=== PATIENT | female | born 1960 | race American Indian/Alaskan Native ===

== ENCOUNTER 2017-11-08 14:10 | Inpatient (IN) | payer MEDICAID ==
[2017-11-08 12:50] VITALS: BMI 23.6
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
[2017-11-08 15:46] LABS: BASO # 0.1 K/uL (0.0-0.2); BASO % 1.7 % (0.0-2.0); EOS # 0.2 K/uL (0.0-0.7); EOS % 4.1 % (0.0-4.0); HEMOGLOBIN 9.9 g/dL (11.0-16.0); LYMPH # 1.2 K/uL (1.0-4.3); LYMPH % 20.3 % (20.0-40.0); MEAN CELL VOLUME 93.8 fL (81.0-99.0); MEAN CORPUSCULAR HEMOGLOBIN 30.9 pg (27.0-31.0); MEAN PLATELET VOLUME 9.4 fL (7.2-11.7); MONO # 0.4 K/uL (0.0-0.8); MONO % 7.2 % (0.0-10.0); NEUT # 3.8 K/uL (1.8-7.0); NEUT % 66.7 % (50.0-75.0); NRBC % 0.1 % (0.0-2.0); RBC 3.2 Mil/uL (3.80-5.20); RED CELL DISTRIBUTION WIDTH 15.7 % (11.5-14.5); WHITE BLOOD COUNT 5.7 K/uL (4.8-10.8)
[2017-11-08 16:07] LABS: TOTAL IRON BINDING CAPACITY 183 ug/dL (250-450)
[2017-11-08 16:25] LABS: ALB/GLOB RATIO 1.2 (1.0-2.1); CALCIUM 8.7 mg/dl (8.6-10.4)
[2017-11-08] MEDS ORDERED: (Novolog) Insulin Aspart, Recombinant 100 u/ml 10 ml vial SC SCH ×2 (16:30→18:36)
[2017-11-08 19:28] LABS: BASO % 0.6 % (0.0-2.0); EOS # 0.1 K/uL (0.0-0.7); EOS % 2.1 % (0.0-4.0); HEMOGLOBIN 10.5 g/dL (11.0-16.0); LYMPH # 0.7 K/uL (1.0-4.3); MEAN CELL VOLUME 93.3 fL (81.0-99.0); MEAN CORPUSCULAR HEMOGLOBIN 31.4 pg (27.0-31.0); MEAN CORPUSCULAR HGB CONC 33.6 g/dL (33.0-37.0); MEAN PLATELET VOLUME 9.4 fL (7.2-11.7); MONO # 0.3 K/uL (0.0-0.8); MONO % 4.7 % (0.0-10.0); NEUT # 5.6 K/uL (1.8-7.0); NEUT % 82.6 % (50.0-75.0); RBC 3.34 Mil/uL (3.80-5.20); RED CELL DISTRIBUTION WIDTH 15.9 % (11.5-14.5); WHITE BLOOD COUNT 6.7 K/uL (4.8-10.8)
[2017-11-08 19:46] LABS: ALB/GLOB RATIO 1.1 (1.0-2.1); ALBUMIN 3.8 g/dL (3.5-5.0); CALCIUM 8.7 mg/dl (8.6-10.4)
[2017-11-08] MEDS: (Novolog) Insulin Aspart, Recombinant 100 u/ml 10 ml vial SC SCH (21:41)
[2017-11-08] MEDS ORDERED: (Lantus) Insulin Glargine, Recombinant SC SCH (22:00)
[2017-11-08] MEDS ORDERED: Insulin Detemir 100 units/ml Vial (Levemir) SC SCH (22:00)
[2017-11-08] MEDS ORDERED: Rosuvastatin Calcium 2.5 mg Tab PO SCH (22:00)
[2017-11-08 22:43] LABS: IRON 55 ug/dL (37-170)
--- NOTE | 2017-11-09 05:38 | CON ---
ENDOCRINOLOGY CONSULTATION DATE: LOCATION: ICU room 16. HISTORY OF PRESENT ILLNESS: This is a 57-year-old female with known history of type 2 insulin-requiring diabetes, presenting here from [facility] for initiation of emergency hemodialysis because of supervening marked hyperkalemia noted at the [facility] Emergency Room. Moreover, she also has been referred now for diabetic evaluation because of marked hyperglycemic acceleration and glucose levels were over 900 at [facility] also. She also had underlying metabolic acidosis and hyperosmolar state as noted. PAST MEDICAL HISTORY: History of type 2 insulin-requiring diabetes, recently changed to a different regimen at home using regular insulin, taken as 5 units t.i.d. with meals and at bedtime, but given only p.r.n. with no recent home glucose monitoring levels available at this time. She is also using alogliptin, taken as 6.25 mg once daily as given. History of diabetic retinopathy, polyneuropathy and nephropathy with end-stage renal disease, on dialysis dependence. History of coronary artery disease, peripheral arterial disease and vasculopathy. FAMILY HISTORY: Positive for diabetes and hypertension. SOCIAL HISTORY: The patient admits to nicotine dependence and chews half a pack a day for many years now. She has a supportive family, otherwise. REVIEW OF SYSTEMS: Admits to generalized body weakness with episodic bouts of dizziness and lightheadedness with visual blurring and bifrontal headaches. Also admits to disruptive sleep patterns and recent hypersomnolence and lethargy as noted. No chest pains, palpitations or PNDs but admits to episodic shortness of breath, especially on exertion. Her oral intake has been variable with marked nausea, dyspepsia, and upper abdominal pain with supervening loose watery diarrhea as noted. Also admits to lower extremity painful paresthesias. PHYSICAL EXAMINATION: GENERAL: This is an average built female, in no apparent distress. VITAL SIGNS: Blood pressure of 150/90, pulse of 100 beats per minute and regular, temperature 98, respirations 20. Height is 5 feet 9 inches. Weight is 174 pounds. HEENT: Head normocephalic. Eyes anicteric with pink conjunctivae. Funduscopy is not possible at this time. Ears, nose and throat, otherwise normal. NECK: Supple. Thyroid gland is normal in size. No carotid bruits or cervical adenopathy. CARDIOPULMONARY: Some adynamic precordium. S1 and S2, rapid and regular. LUNGS: Showed scattered rhonchi. ABDOMEN: Flat and soft with positive bowel sounds. EXTREMITIES: No peripheral edema. Pulses are +2 bilaterally. LABORATORY DATA: Chemistries done initially here in the emergency room showed a BUN of 58, sodium 138, potassium 5.1, chloride 99, CO2 of 26, glucose 136, creatinine 8.9. Subsequent glucose levels raised from 167 to 215 mg/dL. ASSESSMENT: This is a 57-year-old female with uncontrolled and decompensated type 2 insulin-requiring diabetes, presenting to the [facility] with hyperosmolar hyperglycemic state, marked hyperglycemic acceleration with underlying ketosis and worsening azotemia with advanced renal failure and marked hyperkalemia as noted thereof. She has been transferred here to [facility] for emergency hemodialysis as noted thereof. She has also diabetic microvascular complications of retinopathy, polyneuropathy and nephropathy with end-stage renal disease and dialysis dependence. Moreover, she also has diabetic macrovascular complications of coronary artery disease, peripheral arterial disease, and vasculopathy. PLAN OF MANAGEMENT: As discussed with the patient and staff because of the marked anorexia and dyspepsia with recent loose watery diarrhea, we will modify her coverage scale to obviate hypoglycemia, and detailed orders have been given. We will change her basal insulin to Lantus which is longer acting and given once daily, and we will start with a low dose of Lantus given as 6 units at bedtime daily to start tonight and we will titrate incrementally if her oral intake improves accordingly. We will hold off prandial insulin regimen for now and if her appetite improves, then we will start her on a very low dose of Novolin given t.i.d. before meals as indicated. We have to avoid giving Novolin at bedtime to obviate early childhood associate hypoglycemia. This rapid active insulin analog is only given at meal time to cover the postprandial glycemic excursion as expected. We will obtain a hemoglobin A1c to confirm her prior glycemic control and baseline thyroid function studies, and a lipid panel will be ordered. We will also obtain a parathyroid hormone intact level to screen for secondary hyperparathyroidism. We will obtain serial chemistries and supplement accordingly as needed. We will follow with you. Ann Castro MD
[2017-11-09 07:01] LABS: ALB/GLOB RATIO 1.3 (1.0-2.1); ALBUMIN 4.2 g/dL (3.5-5.0); ALT/SGPT 14 U/L (9-52); AST/SGOT 18 U/L (14-36); BLOOD UREA NITROGEN 33 mg/dL (7-17); CALCIUM 8.5 mg/dl (8.6-10.4); GFR AFRICAN-AMERICAN 8; GFR NON-AFRICAN AMERICAN 6; HDL CHOLESTEROL 76 mg/dL (30-70)
[2017-11-09 07:12] LABS: LDL CHOLESTEROL < 30 mg/dL (0-129)
[2017-11-09] MEDS: (Novolog) Insulin Aspart, Recombinant 100 u/ml 10 ml vial SC SCH ×5 (08:28→16:44)
[2017-11-09] MEDS ORDERED: Sod Polystyrene Sulf 15 gm/60 ml Susp PO ONE (09:38)
[2017-11-09] MEDS ORDERED: Vancomycin 1 gm/NS 200 ml 1 GM/200 ML BAG IVPB STA (09:57)
[2017-11-09] MEDS ORDERED: Pantoprazole 40 mg EC Tab PO SCH (10:00)
[2017-11-09 14:59] VITALS: RESP 16; O2SAT 98
--- NOTE | 2017-11-09 16:51 | PN ---
DATE: 11/09/2017 LOCATION: ICU Room 16. SUBJECTIVE: This is a 57-year-old female with recent uncontrolled type 2 insulin requiring diabetes, presenting here with marked hyperglycemic accelerations and metabolic acidosis and has been transferred here from [facility] for initiation of hemodialysis as noted thereof. Her oral intake remains quite variable, but is improving as noted today by the nursing staff. Supervening hyperglycemic accelerations have developed overnight with latest glucose values today ranging from 215 to 360 mg per deciliter. Her hemoglobin A1c is 10.7% which is quite elevated indicative of suboptimal metabolic control of her diabetic condition even prior to this admission. Her latest chemistries today showed a BUN of 33, sodium 134, potassium 5.7, chloride 93, CO2 of 23, glucose 360, and creatinine 6.6. ASSESSMENT: This is a 57-year-old female with uncontrolled and decompensated type 2 insulin requiring diabetes with recent hyperosmolar state and dehydration from concomitant progressive renal insufficiency and marked azotemia as noted thereof. She also has diabetic microvascular complications of retinopathy, polyneuropathy, and nephropathy with end-stage renal disease, on dialysis dependence. Moreover, she has diabetic microvascular complications of coronary artery disease and peripheral arterial disease with vasculopathy. PLAN OF MANAGEMENT: We will modify once again now her basal and bolus insulin regimen and actually will be adding a prandial insulin as her oral intake has improved overnight, and we will give NovoLog given as 6 units subcu t.i.d. before meals to start at lunch time today as ordered. We will modify the coverage scale to obviate hypoglycemia and detailed orders have been given. We will also increase and titrate her basal insulin with Lantus to be given as 12 units subcu at bedtime daily to start tonight. We will titrate incrementally her insulin regimen to optimize metabolic control. We will follow up. Ann Castro MD
[2017-11-09 18:25] VITALS: BP 140/59; PULSE 82; TEMP 97.8
[2017-11-09] MEDS ORDERED: (Lantus) Insulin Glargine, Recombinant SC SCH (22:00)
--- NOTE | 2017-11-09 22:35 | HP ---
CHIEF COMPLAINT: Urinary problems. HISTORY OF PRESENT ILLNESS: Ms. Franco Rosa is a 57-year-old female with past medical history of end-stage renal disease, on hemodialysis, anemia, secondary hypothyroidism, hypertension, diabetic retinopathy, diabetic nephropathy, diabetic neuropathy, hypertension, and GERD. She was initially presented to [facility] emergency room with diarrhea, abdominal pain, too much urination, thirsty. She stated that she is compliant with her insulin, and she had been electively compliant with her dialysis. She was found to have a sugar of 900 with severe hyperkalemia. She was admitted to the [facility], but from [place], she is supposed to go for dialysis in [facility], then we transferred the patient from [place] to [facility] emergency room. Discussion done with Dr. Kaba, hospitalist. She gave me for this patient. The patient was seen in her room, that moment, she was comfortable. No fever. No chills. Her abdominal pain got better. No nausea, vomiting, or diarrhea. PAST MEDICAL HISTORY: As above, end-stage renal disease, on hemodialysis, TTS, anemia secondary hypothyroidism, hypertension, diabetic retinopathy, diabetic neuropathy, diabetic nephropathy, GERD, dyspepsia, have AV fistula, AV stent. ALLERGIES: THE PATIENT IS NOT ALLERGIC WITH ANY MEDICATIONS. FAMILY HISTORY: Breast CA, HIV positive, diabetes mellitus, stroke, and seizures. SOCIAL HISTORY: Smoking habits: Smoking, yes. Denies ethanol and IVDA. REVIEW OF SYSTEMS: Full details of system is negative except as above in H and P. PHYSICAL EXAMINATION: VITAL SIGNS: Temperature 98.4, pulse 83, blood pressure 153/58, respiratory rate 16, oxygen saturation 94%. HEENT: Normocephalic and atraumatic. Eyes, PERRLA. Extraocular movements are intact. Conjunctivae clear. Nose patent. Mucous membranes are moist. NECK: Supple. No carotid bruits, JVD, or thyromegaly. CHEST: Bilaterally symmetrical. HEART: S1, S2 positive. LUNGS: Clear to auscultation. ABDOMEN: Soft. Bowel sounds present. No organomegaly. EXTREMITIES: No edema. No cyanosis. NEUROLOGIC: The patient is awake, alert. Moving all four extremities without focal deficits. LABORATORY DATA: White blood cell 6.7, hemoglobin 10.5, hematocrit 31.1, platelets 153. Sodium 134, potassium 3.2, chloride 92, BUN 23, creatinine 3.9, glucose 215, phosphorus 2.4, alkaline phosphatase 145. ASSESSMENT AND PLAN: Ms. Franco Rosa is a 57-year-old lady with anemia who was admitted for hyperkalemia but now has hypokalemia, hypochloremia, renal insufficiency, uncontrolled diabetes mellitus, vitamin D deficiency, seen by Dr. 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 The patient is in the unit. We will continue amlodipine, aspirin, heparin, insulin, metoprolol. Seen by sales representative uniforms, Dr. Alexander, thermometer tester, Dr. Lugo, and endocrinology, Dr. Ann Castro. Discussion was done with the patient and the patient's daughter and the patient's admitting nurse. July Dunne MD
== END 2017-11-09 18:15 | disposition left against medical advice (07) | DRG 566 ==
LOC: C.9I 14:10
PROVIDERS: ADMIT Internal Medicine; ATTEND Internal Medicine
PROC: 5A1D70Z Performance of Urinary Filtration, Intermittent, Less than 6 Hours Per Day (ICD-10-PCS; principal; 2017-11-08)
DX: E87.5 Hyperkalemia (principal); E11.00 Type 2 diabetes mellitus with hyperosmolarity without nonketotic hyperglycemic-hyperosmolar coma (NKHHC); I12.0 Hypertensive chronic kidney disease with stage 5 chronic kidney disease or end stage renal disease; E11.51 Type 2 diabetes mellitus with diabetic peripheral angiopathy without gangrene; N18.6 End stage renal disease; E11.42 Type 2 diabetes mellitus with diabetic polyneuropathy; E11.21 Type 2 diabetes mellitus with diabetic nephropathy; E11.22 Type 2 diabetes mellitus with diabetic chronic kidney disease; E11.319 Type 2 diabetes mellitus with unspecified diabetic retinopathy without macular edema; E87.2 Acidosis; E87.6 Hypokalemia; E87.8 Other disorders of electrolyte and fluid balance, not elsewhere classified; E55.9 Vitamin D deficiency, unspecified; F17.200 Nicotine dependence, unspecified, uncomplicated; H40.9 Unspecified glaucoma; I25.10 Atherosclerotic heart disease of native coronary artery without angina pectoris; K21.9 Gastro-esophageal reflux disease without esophagitis; D64.9 Anemia, unspecified; N25.81 Secondary hyperparathyroidism of renal origin; Z79.4 Long term (current) use of insulin; Z87.440 Personal history of urinary (tract) infections; Z99.2 Dependence on renal dialysis

== ENCOUNTER 2017-12-13 12:11 | Inpatient (IN) | payer MEDICAID ==
[2017-12-13 12:13] VITALS: BMI 25.1
--- NOTE | 2017-12-13 12:36 | C.PDOC ---
Chief Complaint (Nursing): Medical Clearance Past Medical History Vital Signs: Last Vital Signs Temp Pulse 80 12/13/17 12:27 Resp 20 12/13/17 12:27 BP 106/37 L 12/13/17 12:27 Pulse Ox 98 12/13/17 12:27 - Medical History PMH: Anemia (blood transfusion), Anxiety, Depression, Diabetes, Fractures (left ankle fx and surgery), HTN, Hypercholesterolemia, Hyperlipidemia, Pancreatitis, Peripheral Edema (Left arm/Lhand/ble/ none at present time), End Stage Renal Disease, Chronic Kidney Disease Denies: HIV Surgical History: Denies: Appendectomy (Denies.), Pacemaker - [facility] Procedures (11/08/17) APPLICATION OF SPLINT (07/26/13) CL FX REDUC-TIBIA/FIBULA (11/16/14) FLUOROSCOPY OF RIGHT JUGULAR VEINS, GUIDANCE (05/03/15) INJECT/INFUSE NEC (03/21/15) INSERT INFUSION DEV IN R INT JUGULAR VEIN, PERC (05/03/15) OP RED-INT FIX TIB/FIBUL (11/16/14) PACKED CELL TRANSFUSION (11/16/14) PERFORMANCE OF URINARY FILTRATION, MULTIPLE (10/04/16) PERFORMANCE OF URINARY FILTRATION, SINGLE (10/26/16) REMOVAL OF INFUSION DEVICE FROM UPPER VEIN, PERC APPROACH (05/03/15) REPAIR ABDOMINAL WALL, OPEN APPROACH (04/16/16) TRANSFUSE NONAUT RED BLOOD CELLS IN PERIPH VEIN, PERC (05/03/15) ULTRASONOGRAPHY OF RIGHT JUGULAR VEINS, GUIDANCE (05/03/15) - Social History Hx Tobacco Use: Yes (6 sticks today) Hx Alcohol Use: No Hx Substance Use: No - Immunization History Hx Tetanus Toxoid Vaccination: No Hx Influenza Vaccination: Yes Hx Pneumococcal Vaccination: No ED Course And Treatment O2 Sat by Pulse Oximetry: 98 Disposition - Disposition
--- NOTE | 2017-12-13 12:37 | C.PDOC ---
History Of Present Illness Patient was transferred from [place] to [facility]. 57 year old female with a PMHx of ESRD, diabetes, colitis, and admissions for DKA presents to the emergency department with complaints of weakness, nausea, vomiting, and diarrhea for the last 2-3 days. She also reports a left sided abdominal pain for the past two days. Patient denies bloody stools. States vomited last night, non-bloody. Currently denies shortness of breath, headache, and trauma. Chief Complaint (Nursing): Medical Clearance Past Medical History Vital Signs: Last Vital Signs Temp 98.6 F 12/13/17 15:20 Pulse 81 12/13/17 18:35 Resp 15 12/13/17 18:35 BP 108/45 L 12/13/17 18:35 Pulse Ox 100 12/13/17 18:35 - Medical History PMH: Anemia (blood transfusion), Anxiety, Depression, Diabetes, Fractures (left ankle fx and surgery), HTN, Hypercholesterolemia, Hyperlipidemia, Pancreatitis, Peripheral Edema (Left arm/Lhand/ble/ none at present time), End Stage Renal Disease, Chronic Kidney Disease Denies: HIV Surgical History: Denies: Appendectomy (Denies.), Pacemaker - [facility] Procedures (11/08/17) APPLICATION OF SPLINT (07/26/13) CL FX REDUC-TIBIA/FIBULA (11/16/14) FLUOROSCOPY OF RIGHT JUGULAR VEINS, GUIDANCE (05/03/15) INJECT/INFUSE NEC (03/21/15) INSERT INFUSION DEV IN R INT JUGULAR VEIN, PERC (05/03/15) OP RED-INT FIX TIB/FIBUL (11/16/14) PACKED CELL TRANSFUSION (11/16/14) PERFORMANCE OF URINARY FILTRATION, MULTIPLE (10/04/16) PERFORMANCE OF URINARY FILTRATION, SINGLE (10/26/16) REMOVAL OF INFUSION DEVICE FROM UPPER VEIN, PERC APPROACH (05/03/15) REPAIR ABDOMINAL WALL, OPEN APPROACH (04/16/16) TRANSFUSE NONAUT RED BLOOD CELLS IN PERIPH VEIN, PERC (05/03/15) ULTRASONOGRAPHY OF RIGHT JUGULAR VEINS, GUIDANCE (05/03/15) Family History: States: No Known Family Hx - Social History Hx Tobacco Use: Yes (6 sticks today) Hx Alcohol Use: No Hx Substance Use: No - Immunization History Hx Tetanus Toxoid Vaccination: No Hx Influenza Vaccination: Yes Hx Pneumococcal Vaccination: No Physical Exam - Physical Exam Appears: Non-toxic, No Acute Distress Skin: Normal Color Head: Atraumatic, Normacephalic Eye(s): bilateral: Other (at baseline) Ear(s): Bilateral: Normal Nose: Normal Oral Mucosa: Moist Tongue: Normal Appearing Lips: Normal Appearing Throat: Normal Neck: Normal, Normal ROM Chest: Symmetrical Cardiovascular: Rhythm Regular, No Edema Respiratory: Normal Breath Sounds Gastrointestinal/Abdominal: Normal Exam Back: Normal Inspection Extremity: No Pedal Edema Neurological/Psych: Oriented x3, Normal Speech ED Course And Treatment - Laboratory Results Result Diagrams: 12/13/17 13:00 Lab Interpretation: Abnormal ECG: Interpreted By Me ECG Rhythm: Sinus Rhythm, ST/T Changes ECG Interpretation: Abnormal (PROLONGES QT) Rate From EC O2 Sat by Pulse Oximetry: 98 Pulse Ox Interpretation: Normal Medical Decision Making Medical Decision Making: Case discussed with Dr. Lugo at 1pm. Dr. Benjamin tavera. Case discussed with Dr. Alexander at 1:40, pt to be admitted to hospitalist. Dr. Prado called, case discussed, pt accepted to Dr. Prado. Disposition Counseled Patient/Family Regarding: Studies Performed, Diagnosis - Disposition Disposition: HOSPITALIZED Disposition Time: 13:36 Condition: SERIOUS - Clinical Impression Clinical Impression: DKA (diabetic ketoacidoses), Hypotension Decision To Admit - Pt Status Changed To: Hospital Disposition Of: Inpatient - Admit Certification Admit to Inpatient:: After my assessment, the patient will require hospitalization for at least two midnights. This is because of the severity of symptoms shown, intensity of services needed, and/or the medical risk in this patient being treated as an outpatient. - InPatient: Physician Admission Certification: I certify that this patient requires 2 or more midnights of care for the following reason:: pt is admitted for DKA and hypotension - . Bed Request Type: ICU Admitting Physician: Celina Prado Patient Diagnosis: DKA (diabetic ketoacidoses), Hypotension
[2017-12-13] MEDS ORDERED: Insulin Human Regular 100 UNIT in Sodium Chloride 0.9% 99 ML IV SCH (12:45)
[2017-12-13] MEDS ORDERED: Sodium Chloride 0.9% 250 ML IV ONE (13:20)
[2017-12-13 13:29] LABS: VENOUS BLOOD GAS BASE EXCESS -6.5 mmol/L (0.0-2.0); VENOUS BLOOD GAS PCO2 41 mmHg (40-60); VENOUS BLOOD GAS PO2 43 mm/Hg (30-55); VENOUS BLOOD PH 7.29 (7.32-7.43)
[2017-12-13] MEDS ORDERED: Sodium Chloride 0.9% 1,000 ML IV ONE (16:04)
--- NOTE | 2017-12-13 16:31 | CP.PCM.CON ---
History of Present Illness - History of Present Illness History of Present Illness: RENAL CONSULT 57 F with PMH of ESRD on HD (//), anemia, secondary hyperparathyroidism, HTN , dm, that presented to ER multiple complaints including abdominal pain, nausea and very high sugars. She was first evaluated at [place] [facility] and transferred to [place] [facility]. She is being admitted for DKA and getting worked up for her abdominal pain. SHe states she went to her last HD on . ROS: A full detailed ros is negative except as above PMHx: ESRD on HD TTS, anemia, secondary hyperparathyroidism, HTN/Diabetic retinopathy, HTN, DM, Neuropathy, GERD Surg: AV fistula, AV stent Alleregies: NKDA FHx: breast ca, HIV, DM, stroke, seizure SH: +smoking, denies etoh or active ivdu meds: as below labs and imaging reviewed pe: as below general: nad sclera: anicteric op: clear neck: supple cv: S+1+s2 no rub lungs cta anteriorlly abd soft ext: no edema neuro: A+OX3 psych: limited insight, nml affect skin no rash access avf plan: ESRD/ DKA/ Diabetic kidney disease/ Acidosis/ Anemia / Secondary hyperpara plan: HD today will dialyzeo n 3.5 k bath - recommend recheck k 2 hours p hd between hd and insulin gtt k may drop significantly resume bp meds when bp stable acidosis should improve post hd and improved sugar control cbc pending will resume SARI pending hgb will continue to follow with you. Past Patient History - Infectious Disease Hx of Infectious Diseases: None - Tetanus Immunizations Tetanus Immunization: Unknown - Past Medical History & Family History Past Medical History?: Yes - Past Social History Smoking Status: Light Smoker < 10 Cigarettes Daily - CARDIAC Hx Hypercholesterolemia: Yes Hx Hypertension: Yes Hx Pacemaker: No Hx Peripheral Edema: Yes (Left arm/Lhand/ble/ none at present time) - PULMONARY Hx Respiratory Disorders: No - NEUROLOGICAL Hx Neurological Disorder: No Hx Paralysis: No - HEENT Hx HEENT Problems: Yes Hx Glaucoma: Yes - RENAL Hx Chronic Kidney Disease: Yes - ENDOCRINE/METABOLIC Hx Endocrine Disorders: Yes Hx Diabetes Mellitus Type 2: Yes - HEMATOLOGICAL/ONCOLOGICAL Hx Anemia: Yes (blood transfusion) Hx Human Immunodeficiency Virus (HIV): No - INTEGUMENTARY Hx Dermatological Problems: No - MUSCULOSKELETAL/RHEUMATOLOGICAL Hx Fractures: Yes (left ankle fx and surgery) - GASTROINTESTINAL Hx Pancreatitis: Yes - GENITOURINARY/GYNECOLOGICAL Hx Genitourinary Disorders: Yes Hx Urinary Tract Infection: Yes - PSYCHIATRIC Hx Anxiety: Yes Hx Depression: Yes Hx Substance Use: No - SURGICAL HISTORY Hx Appendectomy: No (Denies.) - ANESTHESIA Hx Anesthesia: Yes Hx Anesthesia Reactions: No Hx Malignant Hyperthermia: No Meds Allergies/Adverse Reactions: Allergies Allergy/AdvReac Type Severity Reaction Status Date / Time No Known Allergies Allergy Verified 12/13/17 12:34 - Medications Medications: Current Medications Ciprofloxacin (Cipro) 250 mg PO DAILY MILLICENT PRN Reason: Protocol Insulin Human Regular 100 unit (/ Sodium Chloride) 100 mls @ 6 mls/hr IV .[id number] MILLICENT Last Admin: 12/13/17 12:11 Dose: 6 mls/hr Sodium Chloride (Sodium Chloride 0.9%) 1,000 mls @ 1,000 mls/hr IV .Q1H ONE Stop: 12/13/17 17:03 Last Admin: 12/13/17 16:22 Dose: 1,000 mls/hr Insulin Glargine (Lantus) 10 unit SC HS [facility] Metoprolol Tartrate (Lopressor) 50 mg PO BID [facility] Metronidazole (Flagyl) 500 mg PO Q12H MILLICENT PRN Reason: Protocol Results - Vital Signs Recent Vital Signs: Last Vital Signs Temp 98.5 F 12/13/17 13:16 Pulse 78 12/13/17 15:01 Resp 12 12/13/17 14:57 BP 114/54 L 12/13/17 14:57 Pulse Ox 98 12/13/17 14:57 - Labs Result Diagrams: 12/13/17 13:00 Labs: Laboratory Results - last 24 hr 12/13/17 12/13/17 12/13/17 12:21 13:00 13:11 pO2 VBG pH VBG pCO2 VBG HCO3 VBG Total CO2 VBG O2 Sat (Calc) VBG Base Excess VBG Potassium Glucose Lactate Crit Value Called To Crit Value Called By Crit Value Read Back Blood Gas Notified Time Sodium 136 Potassium 3.9 Chloride 97 L Carbon Dioxide 18 L Anion Gap 25 H BUN 55 H Creatinine 10.0 H* D Est GFR ( Amer) 5 Est GFR (Non-Af Amer) 4 POC Glucose (mg/dL) > 500 H* 481 H* Random Glucose 497 H* D Calcium 9.0 Phosphorus 3.1 TSH 3rd Generation 0.14 L Venous Blood Potassium B-Hydroxybutyrate 0.61 H 12/13/17 12/13/17 12/13/17 13:23 14:23 15:48 pO2 43 VBG pH 7.29 L VBG pCO2 41 VBG HCO3 19.2 VBG Total CO2 21.0 L VBG O2 Sat (Calc) 79.9 H VBG Base Excess -6.5 L VBG Potassium 3.6 Glucose 489 H* D Lactate 3.8 H Crit Value Called To Rn Crit Value Called By mirta Mercado Crit Value Read Back Y Blood Gas Notified Time 1328 Sodium 133.0 Potassium Chloride 98.0 Carbon Dioxide Anion Gap BUN Creatinine Est GFR ( Amer) Est GFR (Non-Af Amer) POC Glucose (mg/dL) 365 H 204 H Random Glucose Calcium Phosphorus TSH 3rd Generation Venous Blood Potassium 3.6 B-Hydroxybutyrate
--- NOTE | 2017-12-13 16:35 | CP.PCM.HP ---
<Robbi Walters Yusuf - Last Filed: 12/13/17 16:48> History of Present Illness - History of Present Illness History of Present Illness: PGY-[address] Prado. Mrs Gamez is a 57 yo F with a PMHx of ESRD on HD, DM2, HTN, HLD, GERD, who initially presented to [facility] due to abdominal pain and headache and was found to be in diabetic ketoacidosis. She said she had generalized abdominal pain localized to the periumbilical area that began last night and worsened. She normally takes insulin humulin 5u ACHS however she did not take her insulin last night or this morning because she was out of test strips. Additionally, she states her and her daughter have both had diarrhea for the past 3 days after eating some bad Hebrew food - specifically wonton soup. She denied emesis. She was transferred to [facility] from [place] for hemodialysis which was ordered by legal practice manager, Dr Lucy Alexander. 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 absent: Chills, Fever - EENT Eyes: Loss of Peripheral Vision - Cardiovascular Cardiovascular: absent: Chest Pain, Dyspnea, Palpitations - Respiratory Respiratory: Dyspnea on Exertion. absent: Cough, Wheezing - Gastrointestinal Gastrointestinal: Abdominal Pain, Diarrhea. absent: Bloating, Vomiting - Genitourinary Genitourinary: Urinary Incontinence - Musculoskeletal Musculoskeletal: Back Pain - Integumentary Integumentary: absent: Bleeding Lesions - Neurological Neurological: Dizziness Past Patient History - Infectious Disease Hx of Infectious Diseases: None - Tetanus Immunizations Tetanus Immunization: Unknown - Past Medical History & Family History Past Medical History?: Yes - Past Social History Smoking Status: Light Smoker < 10 Cigarettes Daily - CARDIAC Hx Hypercholesterolemia: Yes Hx Hypertension: Yes Hx Pacemaker: No Hx Peripheral Edema: Yes (Left arm/Lhand/ble/ none at present time) - PULMONARY Hx Respiratory Disorders: No - NEUROLOGICAL Hx Neurological Disorder: No Hx Paralysis: No - HEENT Hx HEENT Problems: Yes Hx Glaucoma: Yes - RENAL Hx Chronic Kidney Disease: Yes - ENDOCRINE/METABOLIC Hx Endocrine Disorders: Yes Hx Diabetes Mellitus Type 2: Yes - HEMATOLOGICAL/ONCOLOGICAL Hx Anemia: Yes (blood transfusion) Hx Human Immunodeficiency Virus (HIV): No - INTEGUMENTARY Hx Dermatological Problems: No - MUSCULOSKELETAL/RHEUMATOLOGICAL Hx Fractures: Yes (left ankle fx and surgery) - GASTROINTESTINAL Hx Pancreatitis: Yes - GENITOURINARY/GYNECOLOGICAL Hx Genitourinary Disorders: Yes Hx Urinary Tract Infection: Yes - PSYCHIATRIC Hx Anxiety: Yes Hx Depression: Yes Hx Substance Use: No - SURGICAL HISTORY Hx Appendectomy: No (Denies.) - ANESTHESIA Hx Anesthesia: Yes Hx Anesthesia Reactions: No Hx Malignant Hyperthermia: No Meds Allergies/Adverse Reactions: Allergies Allergy/AdvReac Type Severity Reaction Status Date / Time No Known Allergies Allergy Verified 12/13/17 12:34 Physical Exam - Constitutional Appears: No Acute Distress, Unkempt - Head Exam Head Exam: ATRAUMATIC, NORMAL INSPECTION - Eye Exam Eye Exam: EOMI Pupil Exam: PERRL - ENT Exam ENT Exam: Mucous Membranes Dry - Neck Exam Neck exam: Positive for: Normal Inspection - Respiratory Exam Respiratory Exam: Clear to Auscultation Bilateral, NORMAL BREATHING PATTERN. absent: Rales, Rhonchi, Wheezes - Cardiovascular Exam Cardiovascular Exam: REGULAR RHYTHM, +S1, +S2. absent: Bradycardia, Tachycardia , JVD, Systolic Murmur - GI/Abdominal Exam GI & Abdominal Exam: Normal Bowel Sounds, Soft, Tenderness. absent: Distended, Firm, Guarding - Extremities Exam Extremities exam: Positive for: normal capillary refill, normal inspection - Neurological Exam Neurological exam: Alert, Oriented x3 - Psychiatric Exam Psychiatric exam: Normal Affect, Normal Mood - Skin Skin Exam: Intact, Normal Color, Warm Results - Vital Signs Recent Vital Signs: Last Vital Signs Temp 98.5 F 12/13/17 13:16 Pulse 78 12/13/17 15:01 Resp 12 12/13/17 14:57 BP 114/54 L 12/13/17 14:57 Pulse Ox 98 12/13/17 14:57 - Labs Result Diagrams: 12/13/17 13:00 Labs: Laboratory Results - last 24 hr 12/13/17 12/13/17 12/13/17 12:21 13:00 13:11 pO2 VBG pH VBG pCO2 VBG HCO3 VBG Total CO2 VBG O2 Sat (Calc) VBG Base Excess VBG Potassium Glucose Lactate Crit Value Called To Crit Value Called By Crit Value Read Back Blood Gas Notified Time Sodium 136 Potassium 3.9 Chloride 97 L Carbon Dioxide 18 L Anion Gap 25 H BUN 55 H Creatinine 10.0 H* D Est GFR ( Amer) 5 Est GFR (Non-Af Amer) 4 POC Glucose (mg/dL) > 500 H* 481 H* Random Glucose 497 H* D Calcium 9.0 Phosphorus 3.1 TSH 3rd Generation 0.14 L Venous Blood Potassium B-Hydroxybutyrate 0.61 H 12/13/17 12/13/17 12/13/17 13:23 14:23 15:48 pO2 43 VBG pH 7.29 L VBG pCO2 41 VBG HCO3 19.2 VBG Total CO2 21.0 L VBG O2 Sat (Calc) 79.9 H VBG Base Excess -6.5 L VBG Potassium 3.6 Glucose 489 H* D Lactate 3.8 H Crit Value Called To Rn Crit Value Called By mirta Mercado Crit Value Read Back Y Blood Gas Notified Time 1328 Sodium 133.0 Potassium Chloride 98.0 Carbon Dioxide Anion Gap BUN Creatinine Est GFR ( Amer) Est GFR (Non-Af Amer) POC Glucose (mg/dL) 365 H 204 H Random Glucose Calcium Phosphorus TSH 3rd Generation Venous Blood Potassium 3.6 B-Hydroxybutyrate Assessment & Plan (1) DKA (diabetic ketoacidoses) Assessment and Plan: Anion gap 21 Insulin drip now stopped - glucose now in 200s Received 1L NS then 1.5L NS during dialysis Repeat labs after dialysis to see if gap has closed F/U hgbA1c, Lipid Panel Lantus 10u SC QHS [employer] referral Status: Acute Priority: High (2) Acute gastroenteritis Assessment and Plan: 3 days of diarrhea after eating bad portuguese food F/U stool ova and parasite F/U stool culture and fecal leukocytes Flagyl 500mg PO Q12H Cipro 250mg PO QD CT abd/pelvis w/o contrast: * Cardiomegaly. Interval improvement previously noted subsegmental atelectasis right middle lobe though there are some residual on scarring changes in the middle lobe, right lung base and left lingular region. Hepatomegaly. Wall thickening of the gallbladder likely to incomplete distension secondary to nonfasting state however clinical correlation recommended . No evidence of cholelithiasis No evidence of an acute appendicitis. Stable appearing cyst left kidney. Wall thickening of the urinary bladder likely in part due to incomplete distention however correlation with urinalysis to exclude cystitis. Calcified uterine fibroid again noted. Status: Acute Priority: High (3) Chronic kidney disease with end stage renal failure on dialysis Assessment and Plan: Nephro - Dr Lucy Alexander T//S Currently receiving dialysis Status: Chronic Priority: High (4) Hypertension Assessment and Plan: ESRD T//Fri Lopressor 50mg PO BID to be given only on non-dialysis days ASA 81mg PO QD Status: Chronic Priority: High (5) Prophylactic measure Assessment and Plan: Heparin 5000u SC Q8H Renal Diet SCDs GI prophylaxis not indicated Status: Acute Priority: Low <Celina Prado V - Last Filed: 12/15/17 00:39> Results - Vital Signs Recent Vital Signs: Last Vital Signs Temp 98.6 F 12/14/17 20:00 Pulse 79 12/14/17 23:00 Resp 16 12/14/17 23:00 BP 140/49 L 12/14/17 22:21 Pulse Ox 97 12/14/17 20:00 - Labs Result Diagrams: 12/14/17 09:27 12/14/17 06:35 Labs: Laboratory Results - last 24 hr 12/14/17 12/14/17 12/14/17 06:35 09:27 11:26 WBC 7.1 RBC 2.72 L Hgb 8.6 L Hct 25.5 L MCV 93.7 MCH 31.6 H MCHC 33.7 RDW 15.3 H Plt Count 126 L MPV 10.2 Neut % (Auto) 73.1 Lymph % (Auto) 17.2 L [place] % (Auto) 6.2 Eos % (Auto) 3.0 Baso % (Auto) 0.5 Neut # (Auto) 5.2 Lymph # (Auto) 1.2 [place] # (Auto) 0.4 Eos # (Auto) 0.2 Baso # (Auto) 0.0 Sodium 139 Potassium 3.8 Chloride 99 Carbon Dioxide 23 Anion Gap 20 BUN 25 H Creatinine 5.1 H Est GFR ( Amer) 11 Est GFR (Non-Af Amer) 9 POC Glucose (mg/dL) 147 H Random Glucose 329 H Calcium 8.8 Total Bilirubin 0.9 AST 18 ALT 21 Alkaline Phosphatase 123 Total Protein 6.4 Albumin 3.6 Globulin 2.8 Albumin/Globulin Ratio 1.3 Stool Leukocytes, Qual 12/14/17 12/14/17 12/14/17 14:00 14:17 16:24 WBC RBC Hgb Hct MCV MCH MCHC RDW Plt Count MPV Neut % (Auto) Lymph % (Auto) Baca % (Auto) Eos % (Auto) Baso % (Auto) Neut # (Auto) Lymph # (Auto) Baca # (Auto) Eos # (Auto) Baso # (Auto) Sodium Potassium Chloride Carbon Dioxide Anion Gap BUN Creatinine Est GFR ( Amer) Est GFR (Non-Af Amer) POC Glucose (mg/dL) 242 H 146 H Random Glucose Calcium Total Bilirubin AST ALT Alkaline Phosphatase Total Protein Albumin Globulin Albumin/Globulin Ratio Stool Leukocytes, Qual Negative Assessment & Plan (1) DKA (diabetic ketoacidoses) Status: Acute (2) Acute gastroenteritis Status: Acute Priority: High (3) ESRD (end stage renal disease) on dialysis Status: Acute (4) Diabetes mellitus Status: Chronic (5) Essential hypertension Status: Chronic (6) Prophylactic measure Status: Acute Priority: Low Attending/Attestation - Attestation I have personally seen and examined this patient.: Yes I have fully participated in the care of the patient.: Yes I have reviewed all pertinent clinical information: Yes Notes (Text): This is late computer entry for 12/13/17. Patient seen, examined and case discussed with medical library assistant. I spoke with the [facility] ER physician in regards to transfer to [facility] given patient is a dialysis patient and is due for her dialysis and in addition patient is suspected for DKA and complaints of abdominal pain. I spoke with the ED Nurse Practitoner; patient is accepted to the unit. I spoke with legal practice manager, Dr Cm Alexander when patient arrived to [facility] and is ordered for dialysis. Patient receiving dialysis in [facility] Bed 4 in the Emergency Room. I have spoken with the ICU, Dr Yusuf Lugo who has accepted patient to the unit. Recommended for labs to be repeated post-dialysis. patient describes to me acute gastroenteritis symptoms for the past 3 days which she attributes to ronaldoton soup that she shared with her daughter who is reporting similar symptoms. Patient reports she has been having the runs but denies blood. She also reports her sugars have been between 500-700s in the past 3 days. She reports she has run out of test strips/lancets and that her glucometer is broken. We will continue the anion gap, bicarbonate, and sugar. Further management per ICU. Patient seen and re-evaluated prior to end of shift has about 30 mins left in dialysis. Admitting orders discussed with day-time resident. Assessment and Plan (1) DKA (diabetic ketoacidoses) Assessment & Plan: patient admitted for ICU for DKA Lantus 10 units subPM insulin drip-->held when sugars was in 200 while in dialysis Fluids per ICU in light of renal failure Status: Acute (2) Acute gastroenteritis Assessment & Plan: Renal dose: Ciprofloxacin 250mg PO daily (active since 12/14/17) Flagyl 500mg PO BID (active since 12/14/17) check for stool studies Status: Acute (3) ESRD (end stage renal disease) on dialysis Assessment & Plan: Dr. Alexander (Billing Services Manager) recreation therapy aide-->help appreciated Patient's dialysis is Friday//Friday Patient had dialysis in [facility] ED Status: Acute (4) Diabetes mellitus Assessment & Plan: Patient is known diabetic. patient has been without working glucometer, test strips, and lancets---> patient will need scripts upon discharge Lantus 10 units subqAM check a1c; lipid panel Status: Chronic (5) Essential hypertension Assessment & Plan: Lopressor 50mg PO BID Patient is dialysis on //Friday Status: Chronic (6) Prophylactic measure Assessment & Plan: Heparin 5000 units subq8H Florastor 250mg PO BID Status: Acute
[2017-12-13] MEDS ORDERED: Dextrose 50% SYRINGE Inj (50 ml) IV PRN (16:57)
[2017-12-13] MEDS ORDERED: Glucagon Recombinant 1 mg Inj IM PRN (16:57)
--- NOTE | 2017-12-13 17:30 | CP.PCM.CON ---
History of Present Illness - History of Present Illness History of Present Illness: Patient well known to ICU team as patient was recently seen and examined by newswriter. Patient again trasnferred [facility] for HD and high uncontrolled BGM. PAtient has baseline ESRD, DM/complicating retinopathy and neuropathy. Patient seen and examined at bedside. Patient has no specific complaints. Patient has (+ )diarrhea Denies any chest pain, denies any abdominal pain PMHx: ESRD on HD TTS, anemia, secondary hyperparathyroidism, HTN/Diabetic retinopathy, HTN, DM, Neuropathy, GERD Surg: AV fistula, AV stent Alleregies: NKDA FHx: breast ca, HIV, DM, stroke, seizure SH: +smoking, denies etoh or active ivdu Past Patient History - Infectious Disease Hx of Infectious Diseases: None - Tetanus Immunizations Tetanus Immunization: Unknown - Past Medical History & Family History Past Medical History?: Yes - Past Social History Smoking Status: Light Smoker < 10 Cigarettes Daily - CARDIAC Hx Hypercholesterolemia: Yes Hx Hypertension: Yes Hx Pacemaker: No Hx Peripheral Edema: Yes (Left arm/Lhand/ble/ none at present time) - PULMONARY Hx Respiratory Disorders: No - NEUROLOGICAL Hx Neurological Disorder: No Hx Paralysis: No - HEENT Hx HEENT Problems: Yes Hx Glaucoma: Yes - RENAL Hx Chronic Kidney Disease: Yes - ENDOCRINE/METABOLIC Hx Endocrine Disorders: Yes Hx Diabetes Mellitus Type 2: Yes - HEMATOLOGICAL/ONCOLOGICAL Hx Anemia: Yes (blood transfusion) Hx Human Immunodeficiency Virus (HIV): No - INTEGUMENTARY Hx Dermatological Problems: No - MUSCULOSKELETAL/RHEUMATOLOGICAL Hx Fractures: Yes (left ankle fx and surgery) - GASTROINTESTINAL Hx Pancreatitis: Yes - GENITOURINARY/GYNECOLOGICAL Hx Genitourinary Disorders: Yes Hx Urinary Tract Infection: Yes - PSYCHIATRIC Hx Anxiety: Yes Hx Depression: Yes Hx Substance Use: No - SURGICAL HISTORY Hx Appendectomy: No (Denies.) - ANESTHESIA Hx Anesthesia: Yes Hx Anesthesia Reactions: No Hx Malignant Hyperthermia: No Meds Allergies/Adverse Reactions: Allergies Allergy/AdvReac Type Severity Reaction Status Date / Time No Known Allergies Allergy Verified 12/13/17 12:34 - Medications Medications: Current Medications Ciprofloxacin (Cipro) 250 mg PO DAILY MILLICENT PRN Reason: Protocol Dextrose (Dextrose 50% Inj) 0 ml IV STAT PRN; Protocol PRN Reason: Hypoglycemia Protocol Dextrose (Glutose 15) 0 gm PO ONCE PRN; Protocol PRN Reason: Hypoglycemia Protocol Glucagon (Glucagen Diagnostic Kit) 0 mg IM STAT PRN; Protocol PRN Reason: Hypoglycemia Protocol Heparin Sodium (Porcine) (Heparin) 5,000 units SC Q8 [facility] Insulin Human Regular 100 unit (/ Sodium Chloride) 100 mls @ 6 mls/hr IV .[id number] [facility] Last Admin: 12/13/17 12:11 Dose: 6 mls/hr Dextrose (Dextrose 5% In Water 1000 Ml) 1,000 mls @ 0 mls/hr IV .Q0M PRN; Protocol; Per Protocol PRN Reason: Hypoglycemia Protocol Insulin Aspart (Novolog) 5 unit SC TIDAC [facility] Insulin Detemir (Levemir) 10 unit SC HS [facility] Insulin Glargine (Lantus) 10 unit SC HS [facility] Metoprolol Tartrate (Lopressor) 50 mg PO BID [facility] Metronidazole (Flagyl) 500 mg PO Q12H [facility] PRN Reason: Protocol Results - Vital Signs Recent Vital Signs: Last Vital Signs Temp 98.5 F 12/13/17 13:16 Pulse 78 12/13/17 15:01 Resp 12 12/13/17 14:57 BP 114/54 L 12/13/17 14:57 Pulse Ox 98 12/13/17 14:57 - Labs Result Diagrams: 12/13/17 19:02 12/14/17 06:35 Labs: Laboratory Results - last 24 hr 12/13/17 12/13/17 12/13/17 12:21 13:00 13:11 pO2 VBG pH VBG pCO2 VBG HCO3 VBG Total CO2 VBG O2 Sat (Calc) VBG Base Excess VBG Potassium Glucose Lactate Crit Value Called To Crit Value Called By Crit Value Read Back Blood Gas Notified Time Sodium 136 Potassium 3.9 Chloride 97 L Carbon Dioxide 18 L Anion Gap 25 H BUN 55 H Creatinine 10.0 H* D Est GFR ( Amer) 5 Est GFR (Non-Af Amer) 4 POC Glucose (mg/dL) > 500 H* 481 H* Random Glucose 497 H* D Calcium 9.0 Phosphorus 3.1 TSH 3rd Generation 0.14 L Venous Blood Potassium B-Hydroxybutyrate 0.61 H 12/13/17 12/13/17 12/13/17 13:23 14:23 15:48 pO2 43 VBG pH 7.29 L VBG pCO2 41 VBG HCO3 19.2 VBG Total CO2 21.0 L VBG O2 Sat (Calc) 79.9 H VBG Base Excess -6.5 L VBG Potassium 3.6 Glucose 489 H* D Lactate 3.8 H Crit Value Called To Rn Crit Value Called By mirta Mercado Crit Value Read Back Y Blood Gas Notified Time 1328 Sodium 133.0 Potassium Chloride 98.0 Carbon Dioxide Anion Gap BUN Creatinine Est GFR ( Amer) Est GFR (Non-Af Amer) POC Glucose (mg/dL) 365 H 204 H Random Glucose Calcium Phosphorus TSH 3rd Generation Venous Blood Potassium 3.6 B-Hydroxybutyrate 12/13/17 16:51 pO2 VBG pH VBG pCO2 VBG HCO3 VBG Total CO2 VBG O2 Sat (Calc) VBG Base Excess VBG Potassium Glucose Lactate Crit Value Called To Crit Value Called By Crit Value Read Back Blood Gas Notified Time Sodium Potassium Chloride Carbon Dioxide Anion Gap BUN Creatinine Est GFR ( Amer) Est GFR (Non-Af Amer) POC Glucose (mg/dL) 164 H Random Glucose Calcium Phosphorus TSH 3rd Generation Venous Blood Potassium B-Hydroxybutyrate Assessment & Plan - Assessment and Plan (Free Text) Assessment: ESRD on HD (T/Th/Sat]: continue HD as per renal, add 1.5 liter positive balance -DKA: repeat cmp/mag/phos and BHB post HD, start levemir 10 units SQ and 5 units aspart before meals -Continue all other home medications -COnsider ID, GI and cardiology eval. Patient can be down graded to telemetry once BHB neg and BGM controlled. Dr. Sood to follow up post HD labs - Date & Time Date: 12/13/17 Time: 19:00
[2017-12-13 19:05] LABS: BASO % 0.6 % (0.0-2.0); EOS # 0.2 K/uL (0.0-0.7); EOS % 2.9 % (0.0-4.0); LYMPH # 0.6 K/uL (1.0-4.3); LYMPH % 8.8 % (20.0-40.0); MEAN CELL VOLUME 93.2 fL (81.0-99.0); MEAN CORPUSCULAR HEMOGLOBIN 30.9 pg (27.0-31.0); MEAN CORPUSCULAR HGB CONC 33.2 g/dL (33.0-37.0); MEAN PLATELET VOLUME 9.6 fL (7.2-11.7); MONO # 0.5 K/uL (0.0-0.8); NEUT # 5.9 K/uL (1.8-7.0); NEUT % 80.7 % (50.0-75.0); RBC 2.76 Mil/uL (3.80-5.20); RED CELL DISTRIBUTION WIDTH 15.3 % (11.5-14.5); WHITE BLOOD COUNT 7.3 K/uL (4.8-10.8)
[2017-12-13 19:08] LABS: VENOUS BLOOD GAS BASE EXCESS 3.3 mmol/L (0.0-2.0); VENOUS BLOOD GAS PCO2 41 mmHg (40-60); VENOUS BLOOD GAS PO2 67 mm/Hg (30-55); VENOUS BLOOD PH 7.44 (7.32-7.43)
[2017-12-13 19:15] LABS: HEMOGLOBIN 8.5 g/dL (11.0-16.0)
[2017-12-13 19:16] LABS: PLATELET COUNT 127 K/uL (130-400)
[2017-12-13 19:17] LABS: HDL CHOLESTEROL 66 mg/dL (30-70)
[2017-12-13 19:21] LABS: ALB/GLOB RATIO 1.3 (1.0-2.1); ALBUMIN 3.7 g/dL (3.5-5.0); CALCIUM 8.6 mg/dl (8.6-10.4)
[2017-12-13 19:30] LABS: LDL CHOLESTEROL < 30 mg/dL (0-129)
[2017-12-13 20:10] LABS: EOSINOPHIL 3 % (0-4); LYMPHOCYTE 7 % (20-40); MONOCYTE 6 % (0-10); NEUTROPHIL 84 % (50-75); PLATELET ESTIMATE SLIGHTLY DECREASED (NORMAL); TOTAL CELLS COUNTED 100
[2017-12-13 20:11] LABS: ANISOCYTOSIS SLIGHT; HYPOCHROMIC SLIGHT; LARGE PLATELETS PRESENT
[2017-12-13] MEDS ORDERED: (Lantus) Insulin Glargine, Recombinant SC SCH (22:00)
[2017-12-13] MEDS ORDERED: Insulin Detemir 100 units/ml Vial (Levemir) SC SCH (22:00)
[2017-12-14 07:03] LABS: ALB/GLOB RATIO 1.3 (1.0-2.1); ALBUMIN 3.6 g/dL (3.5-5.0); CALCIUM 8.8 mg/dl (8.6-10.4)
[2017-12-14] MEDS ORDERED: (Novolog) Insulin Aspart, Recombinant 100 u/ml 10 ml vial SC SCH (07:30)
--- NOTE | 2017-12-14 08:35 | RAD ---
HISTORY: effusion COMPARISON: 09/11/2012. FINDINGS: LUNGS: The lungs are well inflated. There is moderate pulmonary venous congestion. PLEURA: No significant pleural effusion identified, no pneumothorax apparent. CARDIOVASCULAR: Again seen is mild cardiomegaly. OSSEOUS STRUCTURES: No significant abnormalities. VISUALIZED UPPER ABDOMEN: Normal. OTHER FINDINGS: None. IMPRESSION: Mild cardiomegaly and moderate pulmonary venous congestion. No evidence of large pleural effusions.
--- NOTE | 2017-12-14 08:36 | CP.PCM.PN ---
Subjective - Date & Time of Evaluation Date of Evaluation: 12/14/17 Time of Evaluation: 08:20 - Subjective Subjective: Medical Attending Note: Patient seen and examined this morning. Patient reports she has not had a bowel movement since leaving the hospital at [facility]. Patient reports she had not eaten for a bunch of days because of the [place] food she ate that caused diarrhea. Patient reports she has an appetite and is feeling better except for bouts of nausea. Patient is eating food at bedside. She had dialysis last night in the ED. Objective - Vital Signs/Intake and Output Vital Signs (last 24 hours): Temp Pulse Resp BP Pulse Ox 98.7 F 81 15 146/53 L 98 12/13/17 20:00 12/14/17 07:20 12/14/17 07:20 12/14/17 07:20 12/14/17 06:20 Intake and Output: 12/14/17 12/14/17 06:59 18:59 Intake Total 280 Output Total 0 Balance 280 - Medications Medications: Current Medications Ciprofloxacin (Cipro) 250 mg PO DAILY [facility] PRN Reason: Protocol Last Admin: 12/13/17 19:55 Dose: 250 mg Dextrose (Dextrose 50% Inj) 0 ml IV STAT PRN; Protocol PRN Reason: Hypoglycemia Protocol Dextrose (Glutose 15) 0 gm PO ONCE PRN; Protocol PRN Reason: Hypoglycemia Protocol Glucagon (Glucagen Diagnostic Kit) 0 mg IM STAT PRN; Protocol PRN Reason: Hypoglycemia Protocol Heparin Sodium (Porcine) (Heparin) 5,000 units SC Q8 [facility] Last Admin: 12/14/17 05:38 Dose: 5,000 units Dextrose (Dextrose 5% In Water 1000 Ml) 1,000 mls @ 0 mls/hr IV .Q0M PRN; Protocol; Per Protocol PRN Reason: Hypoglycemia Protocol Insulin Aspart (Novolog) 5 unit SC TIDAC [facility] Last Admin: 12/14/17 07:59 Dose: 5 u Insulin Glargine (Lantus) 10 unit SC HS [facility] Metoprolol Tartrate (Lopressor) 50 mg PO BID [facility] Metronidazole (Flagyl) 500 mg PO Q12H [facility] PRN Reason: Protocol Last Admin: 12/14/17 05:04 Dose: 500 mg - Labs Labs: 12/13/17 19:02 12/14/17 06:35 - Constitutional Appears: Non-toxic, No Acute Distress - Head Exam Head Exam: NORMAL INSPECTION - Eye Exam Eye Exam: EOMI - ENT Exam ENT Exam: Mucous Membranes Moist - Respiratory Exam Respiratory Exam: Clear to Ausculation Bilateral, NORMAL BREATHING PATTERN. absent: Rales, Rhonchi, Wheezes - Cardiovascular Exam Cardiovascular Exam: REGULAR RHYTHM, +S1, +S2 - GI/Abdominal Exam GI & Abdominal Exam: Distended, Soft, Normal Bowel Sounds. absent: Firm, Guarding, Rigid, Tenderness, Rebound - Extremities Exam Extremities Exam: absent: Pedal Edema, Tenderness - Neurological Exam Neurological Exam: Alert, Awake, Oriented x3 Neuro motor strength exam: Left Upper Extremity: 5, Right Upper Extremity: 5, Left Lower Extremity: 5, Right Lower Extremity: 5 - Psychiatric Exam Psychiatric exam: Normal Affect, Normal Mood - Skin Skin Exam: Dry, Normal Color, Warm Assessment and Plan (1) DKA (diabetic ketoacidoses) Assessment & Plan: patient admitted for ICU for DKA Beta-hydroxy is elevated Lantus 10 units subPM Premeal insulin increased 10 units tid Status: Acute (2) Acute gastroenteritis Assessment & Plan: patient has not had diarrhea since leaving [facility] yesterday. Ciprofloxacin 250mg PO daily (active since 12/14/17) Flagyl 500mg PO BID (active since 12/14/17) Status: Acute (3) ESRD (end stage renal disease) on dialysis Assessment & Plan: Dr. Alexander ([employer]) training professional-->help appreciated Patient's dialysis is Friday//Friday Patient had dialysis overnight Status: Acute (4) Diabetes mellitus Assessment & Plan: Patient is known diabetic. patient has been without working glucometer, test strips, and lancets---> patient will need scripts upon discharge Lantus 10 units subqAM Premeal increased to 10units TIDAC Status: Chronic (5) Essential hypertension Assessment & Plan: Lopressor 50mg PO BID Patient is dialysis on //Friday Status: Chronic (6) Prophylactic measure Assessment & Plan: Heparin 5000 units subq8H Florastor 250mg PO BID Status: Acute
[2017-12-14] MEDS ORDERED: POLYETHYLENE GLYCOL 3350 17 GM/Dose PACKET PO ONE (08:45)
[2017-12-14 09:29] LABS: BASO % 0.5 % (0.0-2.0); EOS # 0.2 K/uL (0.0-0.7); HEMOGLOBIN 8.6 g/dL (11.0-16.0); LYMPH # 1.2 K/uL (1.0-4.3); LYMPH % 17.2 % (20.0-40.0); MEAN CELL VOLUME 93.7 fL (81.0-99.0); MEAN CORPUSCULAR HEMOGLOBIN 31.6 pg (27.0-31.0); MEAN CORPUSCULAR HGB CONC 33.7 g/dL (33.0-37.0); MEAN PLATELET VOLUME 10.2 fL (7.2-11.7); MONO # 0.4 K/uL (0.0-0.8); MONO % 6.2 % (0.0-10.0); NEUT # 5.2 K/uL (1.8-7.0); NEUT % 73.1 % (50.0-75.0); RBC 2.72 Mil/uL (3.80-5.20); RED CELL DISTRIBUTION WIDTH 15.3 % (11.5-14.5); WHITE BLOOD COUNT 7.1 K/uL (4.8-10.8)
[2017-12-14] MEDS ORDERED: (Lantus) Insulin Glargine, Recombinant SC SCH ×2 (10:00→14:29)
[2017-12-14] MEDS: (Novolog) Insulin Aspart, Recombinant 100 u/ml 10 ml vial SC SCH ×2 (11:35→17:05)
--- NOTE | 2017-12-14 14:27 | CP.PCM.PN ---
Subjective - Date & Time of Evaluation Date of Evaluation: 12/14/17 Time of Evaluation: 14:24 - Subjective Subjective: Patient sitting up in ICU, not hypotensive. Not having any breathing problem. tolerated HD yesterday. BGM post prandial better Objective - Vital Signs/Intake and Output Vital Signs (last 24 hours): Temp Pulse Resp BP Pulse Ox 98.7 F 76 17 135/47 L 99 12/13/17 20:00 12/14/17 14:00 12/14/17 14:00 12/14/17 13:21 12/14/17 14:00 Intake and Output: 12/14/17 12/14/17 06:59 18:59 Intake Total 280 600 Output Total 0 Balance 280 600 - Medications Medications: Current Medications Aspirin (Aspirin Chewable) 81 mg PO DAILY [facility] Last Admin: 12/14/17 11:00 Dose: 81 mg Ciprofloxacin (Cipro) 250 mg PO DAILY [facility] PRN Reason: Protocol Last Admin: 12/14/17 11:00 Dose: 250 mg Dextrose (Dextrose 50% Inj) 0 ml IV STAT PRN; Protocol PRN Reason: Hypoglycemia Protocol Dextrose (Glutose 15) 0 gm PO ONCE PRN; Protocol PRN Reason: Hypoglycemia Protocol Glucagon (Glucagen Diagnostic Kit) 0 mg IM STAT PRN; Protocol PRN Reason: Hypoglycemia Protocol Heparin Sodium (Porcine) (Heparin) 5,000 units SC Q8 [facility] Last Admin: 12/14/17 13:14 Dose: 5,000 units Dextrose (Dextrose 5% In Water 1000 Ml) 1,000 mls @ 0 mls/hr IV .Q0M PRN; Protocol; Per Protocol PRN Reason: Hypoglycemia Protocol Insulin Aspart (Novolog) 10 unit SC TIDAC [facility] Last Admin: 12/14/17 11:35 Dose: 10 u Insulin Glargine (Lantus) 20 unit SC DAILY [facility] Last Admin: 12/14/17 10:59 Dose: 20 u Metoclopramide HCl (Reglan) 10 mg PO ACHS [facility] Last Admin: 12/14/17 11:00 Dose: 10 mg Metoprolol Tartrate (Lopressor) 50 mg PO BID [facility] Last Admin: 12/14/17 10:59 Dose: 50 mg Metronidazole (Flagyl) 500 mg PO Q12H [facility] PRN Reason: Protocol Last Admin: 12/14/17 05:04 Dose: 500 mg Saccharomyces Boulardii (Florastor) 250 mg PO BID [facility] - Labs Labs: 12/14/17 09:27 12/14/17 06:35 - Constitutional Appears: Non-toxic, Older Than Stated Age, Chronically Ill - Head Exam Head Exam: ATRAUMATIC, NORMAL INSPECTION - Eye Exam Eye Exam: EOMI - Neck Exam Neck Exam: Normal Inspection - Respiratory Exam Respiratory Exam: NORMAL BREATHING PATTERN - Cardiovascular Exam Cardiovascular Exam: REGULAR RHYTHM, +S1, +S2 - Extremities Exam Extremities Exam: Normal Inspection - Neurological Exam Neurological Exam: Alert, Awake, Oriented x3 Assessment and Plan - Assessment and Plan (Free Text) Assessment: DKA: resolved, chek HBA1c, anion gap closed -DM: tolerated lantus 20 units and 10 units premeal -will benefit from asa and statin -continue dvt ppx Patient remains hemodynamically stable Addendum: patient's am lantus will be increased to 30 units with 10 unit s premeals. -continue to monitor
[2017-12-14] MEDS ORDERED: Epoetin Alfa 10,000 unit/ml Dialysis SC ONE ×2 (15:33→17:45)
--- NOTE | 2017-12-14 15:33 | CP.PCM.PN ---
Subjective - Date & Time of Evaluation Date of Evaluation: 12/14/17 Time of Evaluation: 09:45 - Subjective Subjective: RENAL FOLLOWUP s: seen and examined feels much better o: vs as below gen: nad sclera: anicteric op: clear neck: supple no thyromegaly +s1+s2 no rub lungs cta b/l abd: soft no organomegaly ext: no edema neuro: a+Ox3 no focal defeict psych: nml affect skin no rash plan: ESRD/ DKA/ Diabetic kidney disease/ Acidosis/ Anemia / Secondary hyperpara plan: HD today sugars are improved insulin per primary, still + bhydroxybutrate bp stable acidosis is improved epo ordered for TTS Objective - Vital Signs/Intake and Output Vital Signs (last 24 hours): Temp Pulse Resp BP Pulse Ox 98.7 F 73 15 122/52 L 96 12/13/17 20:00 12/14/17 15:21 12/14/17 15:21 12/14/17 15:21 12/14/17 15:21 Intake and Output: 12/14/17 12/14/17 06:59 18:59 Intake Total 280 600 Output Total 0 Balance 280 600 - Medications Medications: Current Medications Aspirin (Aspirin Chewable) 81 mg PO DAILY [facility] Last Admin: 12/14/17 11:00 Dose: 81 mg Ciprofloxacin (Cipro) 250 mg PO DAILY [facility] PRN Reason: Protocol Last Admin: 12/14/17 11:00 Dose: 250 mg Dextrose (Dextrose 50% Inj) 0 ml IV STAT PRN; Protocol PRN Reason: Hypoglycemia Protocol Dextrose (Glutose 15) 0 gm PO ONCE PRN; Protocol PRN Reason: Hypoglycemia Protocol Glucagon (Glucagen Diagnostic Kit) 0 mg IM STAT PRN; Protocol PRN Reason: Hypoglycemia Protocol Heparin Sodium (Porcine) (Heparin) 5,000 units SC Q8 [facility] Last Admin: 12/14/17 13:14 Dose: 5,000 units Dextrose (Dextrose 5% In Water 1000 Ml) 1,000 mls @ 0 mls/hr IV .Q0M PRN; Protocol; Per Protocol PRN Reason: Hypoglycemia Protocol Insulin Aspart (Novolog) 10 unit SC TIDAC [facility] Last Admin: 12/14/17 11:35 Dose: 10 u Insulin Glargine (Lantus) 30 unit SC DAILY [facility] Metoclopramide HCl (Reglan) 10 mg PO ACHS [facility] Last Admin: 12/14/17 11:00 Dose: 10 mg Metoprolol Tartrate (Lopressor) 50 mg PO BID [facility] Last Admin: 12/14/17 10:59 Dose: 50 mg Metronidazole (Flagyl) 500 mg PO Q12H [facility] PRN Reason: Protocol Last Admin: 12/14/17 05:04 Dose: 500 mg Saccharomyces Boulardii (Florastor) 250 mg PO BID [facility] - Labs Labs: 12/14/17 09:27 12/14/17 06:35
[2017-12-14] MEDS: Saccharomyces Boulardi 250 mg Cap PO SCH (17:05)
[2017-12-14 18:48] VITALS: O2SAT 97
[2017-12-14 20:47] VITALS: TEMP 98.6
[2017-12-15 04:09] VITALS: BP 148/67; PULSE 103; RESP 13
[2017-12-15] MEDS: (Novolog) Insulin Aspart, Recombinant 100 u/ml 10 ml vial SC SCH ×2 (08:30→12:11)
[2017-12-15 08:35] LABS: BASO % 1.3 % (0.0-2.0); EOS # 0.2 K/uL (0.0-0.7); EOS % 5.2 % (0.0-4.0); HEMOGLOBIN 9.2 g/dL (11.0-16.0); LYMPH % 27.2 % (20.0-40.0); MEAN CELL VOLUME 94.3 fL (81.0-99.0); MEAN CORPUSCULAR HEMOGLOBIN 31.8 pg (27.0-31.0); MEAN CORPUSCULAR HGB CONC 33.7 g/dL (33.0-37.0); MEAN PLATELET VOLUME 9.3 fL (7.2-11.7); MONO # 0.3 K/uL (0.0-0.8); MONO % 7.7 % (0.0-10.0); NEUT # 2.3 K/uL (1.8-7.0); NEUT % 58.6 % (50.0-75.0); RBC 2.91 Mil/uL (3.80-5.20); RED CELL DISTRIBUTION WIDTH 15.8 % (11.5-14.5); WHITE BLOOD COUNT 3.9 K/uL (4.8-10.8)
[2017-12-15 08:47] LABS: HDL CHOLESTEROL 85 mg/dL (30-70)
[2017-12-15 08:56] LABS: ALB/GLOB RATIO 1.4 (1.0-2.1); ALBUMIN 4.4 g/dL (3.5-5.0); CALCIUM 9.8 mg/dl (8.6-10.4)
[2017-12-15 08:59] LABS: LDL CHOLESTEROL < 30 mg/dL (0-129)
[2017-12-15] MEDS: Saccharomyces Boulardi 250 mg Cap PO SCH (10:07)
--- NOTE | 2017-12-15 15:57 | CP.PCM.PN ---
Subjective - Date & Time of Evaluation Date of Evaluation: 12/15/17 Time of Evaluation: 15:56 - Subjective Subjective: RENAL FOLLOWUP s: seen and examined feels much better. want to go home. denies CP/SOB/nausea/ vomitting o: vs as below gen: nad sclera: anicteric op: clear neck: supple no thyromegaly +s1+s2 no rub lungs cta b/l abd: soft no organomegaly ext: no edema neuro: a+Ox3 no focal defeict psych: nml affect skin no rash plan: ESRD/ DKA/ Diabetic kidney disease/ Acidosis/ Anemia / Secondary hyperpara plan: HD tomorrow as TTS scheduled sugars are improved insulin per primary bp stable acidosis is improved epo ordered for TTS pt stable for d/c from renal perspective d/w primary team please call if any Qs Objective - Vital Signs/Intake and Output Vital Signs (last 24 hours): Temp Pulse Resp BP Pulse Ox 98.6 F 103 H 13 148/67 97 12/14/17 20:00 12/15/17 04:00 12/15/17 03:21 12/15/17 03:21 12/14/17 20:00 Intake and Output: 12/15/17 12/15/17 06:59 18:59 Intake Total 1150 300 Output Total 0 Balance 1150 300 - Medications Medications: Current Medications Aspirin (Aspirin Chewable) 81 mg PO DAILY [facility] Last Admin: 12/15/17 10:06 Dose: 81 mg Ciprofloxacin (Cipro) 250 mg PO DAILY [facility] PRN Reason: Protocol Last Admin: 12/15/17 10:07 Dose: 250 mg Dextrose (Dextrose 50% Inj) 0 ml IV STAT PRN; Protocol PRN Reason: Hypoglycemia Protocol Last Admin: 12/15/17 11:08 Dose: 50 ml Dextrose (Glutose 15) 0 gm PO ONCE PRN; Protocol PRN Reason: Hypoglycemia Protocol Epoetin Jhon (Procrit) 10,000 unit IV TTS [facility] Glucagon (Glucagen Diagnostic Kit) 0 mg IM STAT PRN; Protocol PRN Reason: Hypoglycemia Protocol Heparin Sodium (Porcine) (Heparin) 5,000 units SC Q8 [facility] Last Admin: 12/15/17 13:48 Dose: 5,000 units Dextrose (Dextrose 5% In Water 1000 Ml) 1,000 mls @ 0 mls/hr IV .Q0M PRN; Protocol; Per Protocol PRN Reason: Hypoglycemia Protocol Insulin Aspart (Novolog) 10 unit SC TIDAC [facility] Last Admin: 12/15/17 12:11 Dose: Not Given Insulin Glargine (Lantus) 30 unit SC DAILY [facility] Last Admin: 12/15/17 10:14 Dose: 30 units Metoclopramide HCl (Reglan) 10 mg PO ACHS [facility] Last Admin: 12/15/17 11:58 Dose: 10 mg Metoprolol Tartrate (Lopressor) 50 mg PO BID [facility] Last Admin: 12/15/17 10:09 Dose: 50 mg Metronidazole (Flagyl) 500 mg PO Q12H [facility] PRN Reason: Protocol Last Admin: 12/15/17 03:18 Dose: 500 mg Saccharomyces Boulardii (Florastor) 250 mg PO BID [facility] Last Admin: 12/15/17 10:07 Dose: 250 mg Vitamin B Complex/Vit C/Folic Acid (Nephro-Tiffanie) 1 tab PO 0800 [facility] - Labs Labs: 12/15/17 08:27 12/15/17 08:27
--- NOTE | 2017-12-15 16:16 | CP.PCM.DIS ---
Provider - Provider Date of Admission: 12/13/17 13:44 Attending physician: Celina Prado DO Consults: Dr Alexander and Dr Sorto ~ Nephrology Time Spent in preparation of Discharge (in minutes): 29 Hospital Course - Lab Results Lab Results: Micro Results 12/13/17 14:05 Blood Blood Culture - Preliminary NO GROWTH AFTER 24 HOURS 12/13/17 13:35 Blood Blood Culture - Preliminary NO GROWTH AFTER 24 HOURS 12/14/17 14:15 Stool Ova and Parasite Concentrate Exam - Final 12/14/17 06:41 Naris MRSA Culture (Admit) - Final MRSA NOT DETECTED Most Recent Lab Values WBC 3.9 K/uL (4.8-10.8) L 12/15/17 08:27 RBC 2.91 Mil/uL (3.80-5.20) L 12/15/17 08:27 Hgb 9.2 g/dL (11.0-16.0) L 12/15/17 08:27 Hct 27.4 % (34.0-47.0) L 12/15/17 08:27 MCV 94.3 fL (81.0-99.0) 12/15/17 08:27 MCH 31.8 pg (27.0-31.0) H 12/15/17 08:27 MCHC 33.7 g/dL (33.0-37.0) 12/15/17 08:27 RDW 15.8 % (11.5-14.5) H 12/15/17 08:27 Plt Count 128 K/uL (130-400) L 12/15/17 08:27 MPV 9.3 fL (7.2-11.7) 12/15/17 08:27 Neut % (Auto) 58.6 % (50.0-75.0) 12/15/17 08:27 Lymph % (Auto) 27.2 % (20.0-40.0) 12/15/17 08:27 Summers % (Auto) 7.7 % (0.0-10.0) 12/15/17 08:27 Eos % (Auto) 5.2 % (0.0-4.0) H 12/15/17 08:27 Baso % (Auto) 1.3 % (0.0-2.0) 12/15/17 08:27 Neut # (Auto) 2.3 K/uL (1.8-7.0) 12/15/17 08:27 Lymph # (Auto) 1.0 K/uL (1.0-4.3) 12/15/17 08:27 Summers # (Auto) 0.3 K/uL (0.0-0.8) 12/15/17 08:27 Eos # (Auto) 0.2 K/uL (0.0-0.7) 12/15/17 08: Baso # (Auto) 0.0 K/uL (0.0-0.2) 12/15/17 08:27 Neutrophils % (Manual) 84 % (50-75) H 12/13/17 19:02 Lymphocytes % (Manual) 7 % (20-40) L 12/13/17 19:02 Monocytes % (Manual) 6 % (0-10) 12/13/17 19:02 Eosinophils % (Manual) 3 % (0-4) 12/13/17 19:02 Platelet Estimate Slightly decreased (NORMAL) L 12/13/17 19:02 Large Platelets Present 12/13/17 19:02 Hypochromasia (manual) Slight 12/13/17 19:02 Anisocytosis (manual) Slight 12/13/17 19:02 pO2 67 mm/Hg (30-55) H 12/13/17 19:05 VBG pH 7.44 (7.32-7.43) H 12/13/17 19:05 VBG pCO2 41 mmHg (40-60) 12/13/17 19:05 VBG HCO3 27.4 mmol/L 12/13/17 19:05 VBG Total CO2 29.1 mmol/L (22-28) H 12/13/17 19:05 VBG O2 Sat (Calc) 96.1 % (40-65) H 12/13/17 19:05 VBG Base Excess 3.3 mmol/L (0.0-2.0) H 12/13/17 19:05 VBG Potassium 3.3 mmol/L (3.6-5.2) L 12/13/17 19:05 Sodium 141.0 mmol/l (132-148) 12/13/17 19:05 Chloride 104.0 mmol/L (98-107) 12/13/17 19:05 Glucose 279 mg/dl (65-105) H 12/13/17 19:05 Lactate 0.8 mmol/L (0.7-2.1) 12/13/17 19:05 FiO2 21.0 % 12/13/17 19:05 Crit Value Called To Rn 12/13/17 13:23 Crit Value Called By mirta Mercado 12/13/17 13:23 Crit Value Read Back Y 12/13/17 13:23 Blood Gas Notified Time 1328 12/13/17 13:23 Sodium 142 mmol/L (132-148) 12/15/17 08:27 Potassium 3.9 mmol/L (3.6-5.2) 12/15/17 08:27 Chloride 98 mmol/L (98-107) 12/15/17 08:27 Carbon Dioxide 27 mmol/L (22-30) 12/15/17 08:27 Anion Gap 20 (10-20) 12/15/17 08:27 BUN 36 mg/dL (7-17) H 12/15/17 08:27 Creatinine 8.0 mg/dL (0.7-1.2) H* D 12/15/17 08:27 Est GFR ( Amer) 6 12/15/17 08:27 Est GFR (Non-Af Amer) 5 12/15/17 08:27 POC Glucose (mg/dL) 112 mg/dL (65-110) H 12/15/17 11:31 Random Glucose 119 mg/dL (65-105) H 12/15/17 08:27 Hemoglobin A1c 11.1 % (4.2-6.5) H 12/13/17 19:02 Calcium 9.8 mg/dl (8.6-10.4) 12/15/17 08:27 Phosphorus 2.2 mg/dL (2.5-4.5) L 12/13/17 19:02 Magnesium 2.1 mg/dL (1.6-2.3) 12/13/17 19:02 Total Bilirubin 0.9 mg/dL (0.2-1.3) 12/15/17 08:27 AST 434 U/L (14-36) H D 12/15/17 08:27 ALT 259 U/L (9-52) H D 12/15/17 08:27 Alkaline Phosphatase 185 U/L (38-126) H D 12/15/17 08:27 Total Protein 7.5 g/dL (6.3-8.3) 12/15/17 08:27 Albumin 4.4 g/dL (3.5-5.0) 12/15/17 08:27 Globulin 3.1 gm/dL (2.2-3.9) 12/15/17 08:27 Albumin/Globulin Ratio 1.4 (1.0-2.1) 12/15/17 08:27 Triglycerides 70 mg/dL (0-149) D 12/15/17 08:27 Cholesterol 132 mg/dL (0-199) 12/15/17 08:27 LDL Cholesterol Direct < 30 mg/dL (0-129) 12/15/17 08: HDL Cholesterol 85 mg/dL (30-70) H 12/15/17 08:27 Free T4 1.43 ng/dL (0.78-2.19) 12/13/17 19:02 TSH 3rd Generation 0.13 mIU/L (0.46-4.68) L 12/13/17 19:02 Venous Blood Potassium 3.3 mmol/L (3.6-5.2) L 12/13/17 19:05 Stool Leukocytes, Qual Negative (NEGATIVE) 12/14/17 14:17 B-Hydroxybutyrate 2.56 mM (0.02-0.27) H 12/13/17 19:02 - Hospital Course Hospital Course: This is a 57 year old female who intially came to [facility] due to abdominal pain and found to have DKA. Her past medical history is signifigant for ESRD requiring HD, DM, and HTN, High Cholesterol. She explained that she was not takng her insulin since she had run out of diabetic testing supplies. When she intially present [place] [facility] her ABG pH was 7.2 and she had betahydroxybutarte as well as serum glucose > 700. Her bicarb was also low as well. Because the [facility] currently does not have a functioning HD unit she was moved to [facility]. Here she required insulin ggt and IVF. She also had HD while here as well. She did well and by 12/15 the anion gap was closed, her blood sugars were in the 150 to 250 range. Patient was very talkative and patient understands that she needs to follow up with her php lamp developer as well as her PMD once she leaves from here. She has TTS HD sessions. She understands she is scheduled to have HD tommorow and states she knows where to go. She has successfully undergone two sessions of HD while here. She feels these have helped a lot. She should resume all medications as before. We also gave her an RX for Lantus as she explained to us she did not have enough , and refills Also we gave her an RX for diabetic testing supplies with refills Discharge Exam - Head Exam Head Exam: ATRAUMATIC, NORMAL INSPECTION - Eye Exam Eye Exam: EOMI, Normal appearance - ENT Exam ENT Exam: Mucous Membranes Moist - Respiratory Exam Respiratory Exam: Clear to PA & Lateral, NORMAL BREATHING PATTERN, UNREMARKABLE - Cardiovascular Exam Cardiovascular Exam: REGULAR RHYTHM - GI/Abdominal Exam GI & Abdominal Exam: Normal Bowel Sounds, Unremarkable - Neurological Exam Neurological exam: Alert, Oriented x3 - Psychiatric Exam Psychiatric exam: Normal Affect, Normal Mood - Skin Skin Exam: Normal Color, Warm Discharge Plan - Discharge Medications Prescriptions: Blood Sugar Diagnostic [Test Strips] 1 each MC TID #90 strip Insulin Glargine, Recombina [Lantus] 10 unit SC BID #1 ml Lancets 1 each MC TID #90 each Syringe Reusable, 3 ml [Syringe] 1 each MC ACHS #90 syringe - Follow Up Plan Condition: SERIOUS Disposition: HOME/ ROUTINE Instructions: Diabetic Ketoacidosis (DC), Dialysis and Diet, Renal Failure Diet (DC), Diabetic Ketoacidosis (DC), Diabetic Ketoacidosis (GEN)
--- NOTE | 2017-12-15 19:51 | CARD ---
APPROVED REPORT EKG Measurement Heart [id number] <Conclusion> Normal sinus rhythm Possible Left atrial enlargement Nonspecific T wave abnormality Prolonged QT Abnormal ECG
[2017-12-16] MEDS ORDERED: Multivitamin Vitamin B Complex (Nephro-Vite) Tab PO SCH (08:00)
[2017-12-16] MEDS ORDERED: Epoetin Alfa 10,000 unit/ml Dialysis IV SCH (10:00)
== END 2017-12-15 16:54 | disposition home or self-care (01) | DRG 294 ==
LOC: C.ER 12:11 → C.9I 13:44
PROVIDERS: ADMIT Hospitalist; ATTEND Hospitalist
PROC: 5A1D70Z Performance of Urinary Filtration, Intermittent, Less than 6 Hours Per Day (ICD-10-PCS; principal; 2017-12-13)
DX: E11.10 Type 2 diabetes mellitus with ketoacidosis without coma (principal); I12.0 Hypertensive chronic kidney disease with stage 5 chronic kidney disease or end stage renal disease; N18.6 End stage renal disease; J98.11 Atelectasis; E11.22 Type 2 diabetes mellitus with diabetic chronic kidney disease; E11.40 Type 2 diabetes mellitus with diabetic neuropathy, unspecified; K52.9 Noninfective gastroenteritis and colitis, unspecified; K21.9 Gastro-esophageal reflux disease without esophagitis; E11.319 Type 2 diabetes mellitus with unspecified diabetic retinopathy without macular edema; N25.81 Secondary hyperparathyroidism of renal origin; E78.5 Hyperlipidemia, unspecified; E78.00 Pure hypercholesterolemia, unspecified; D25.9 Leiomyoma of uterus, unspecified; H40.9 Unspecified glaucoma; F17.210 Nicotine dependence, cigarettes, uncomplicated; Z79.4 Long term (current) use of insulin; Z79.82 Long term (current) use of aspirin; Z87.440 Personal history of urinary (tract) infections; Z99.2 Dependence on renal dialysis

== ENCOUNTER 2018-07-07 11:52 | Inpatient (IN) | payer MEDICAID ==
[2018-07-07 11:52] VITALS: BMI 25.1
[2018-07-07] MEDS ORDERED: Dextrose 50% SYRINGE Inj (50 ml) ONE (12:15)
[2018-07-07] MEDS ORDERED: Dextrose 50% SYRINGE Inj (50 ml) IV STA (12:15)
--- NOTE | 2018-07-07 13:22 | C.PDOC ---
History Of Present Illness 57 y/o female with a PMHx of diabetes and renal failure (on HD T-), sent in from dialysis today after she was found to be hypoglycemic. Patient is also complaining of swelling and pain to left side of her abdomen. Of note she was evaluated at [facility] [place] this last [place], states she was told she was hypoxic and needed to be on home O2. Otherwise patient denies any fever, chills, cough, SOB, chest pain, weakness, or dizziness. Patient admits she took her insulin this morning without eating anything. Of note patient was sent immediately and did not receive her dialysis today. Time Seen by Provider: 07/07/18 12:03 Chief Complaint (Nursing): High Blood Sugar History Per: Patient History/Exam Limitations: no limitations Onset/Duration Of Symptoms: Hrs Current Symptoms Are (Timing): Still Present Current Diabetic Medications: Insulin Causative (Exacerbating) Factor(s): Missed A Meal Past Medical History Reviewed: Historical Data, Nursing Documentation, Vital Signs Vital Signs: Last Vital Signs Temp 93.8 F L 07/07/18 13:14 Pulse 73 07/07/18 12:00 Resp 18 07/07/18 12:00 BP 167/72 H 07/07/18 12:00 Pulse Ox 94 L 07/07/18 12:00 - Medical History PMH: Anemia (blood transfusion), Anxiety, Depression, Diabetes, Fractures (left ankle fx and surgery), HTN, Hypercholesterolemia, Hyperlipidemia, Pancreatitis, Peripheral Edema (Left arm/Lhand/ble/ none at present time), End Stage Renal Disease, Chronic Kidney Disease Denies: HIV Surgical History: Denies: Appendectomy (Denies.), Pacemaker - [facility] Procedures (12/13/17) APPLICATION OF SPLINT (07/26/13) CL FX REDUC-TIBIA/FIBULA (11/16/14) FLUOROSCOPY OF RIGHT JUGULAR VEINS, GUIDANCE (05/03/15) INJECT/INFUSE NEC (03/21/15) INSERT INFUSION DEV IN R INT JUGULAR VEIN, PERC (05/03/15) OP RED-INT FIX TIB/FIBUL (11/16/14) PACKED CELL TRANSFUSION (11/16/14) PERFORMANCE OF URINARY FILTRATION, MULTIPLE (10/04/16) PERFORMANCE OF URINARY FILTRATION, SINGLE (10/26/16) REMOVAL OF INFUSION DEVICE FROM UPPER VEIN, PERC APPROACH (05/03/15) REPAIR ABDOMINAL WALL, OPEN APPROACH (04/16/16) TRANSFUSE NONAUT RED BLOOD CELLS IN PERIPH VEIN, PERC (05/03/15) ULTRASONOGRAPHY OF RIGHT JUGULAR VEINS, GUIDANCE (05/03/15) Family History: States: No Known Family Hx - Social History Hx Tobacco Use: Yes (6 sticks today) Hx Alcohol Use: No Hx Substance Use: No - Immunization History Hx Tetanus Toxoid Vaccination: No Hx Influenza Vaccination: Yes Hx Pneumococcal Vaccination: No Review Of Systems Except As Marked, All Systems Reviewed And Found Negative. Constitutional: Positive for: Other (Low blood sugar). Negative for: Fever, Chills, Sweats Eyes: Negative for: Vision Change Cardiovascular: Negative for: Chest Pain Respiratory: Negative for: Shortness of Breath Gastrointestinal: Negative for: Nausea, Vomiting, Diarrhea Genitourinary: Negative for: Dysuria, Frequency Skin: Negative for: Rash Neurological: Negative for: Weakness, Numbness, Change in Speech, Dizziness Physical Exam - Physical Exam Appears: Well, Non-toxic, No Acute Distress Skin: Warm, Dry, No Pale Head: Atraumatic, Normacephalic Eye(s): bilateral: Normal Inspection (clear conjunctiva), PERRL, EOMI Oral Mucosa: Moist Neck: Normal ROM Chest: Symmetrical Cardiovascular: Rhythm Regular, No Murmur, Other (Normal S1, S2) Respiratory: Rales (Faint crackles at the bases), No Rhonchi, No Wheezing Gastrointestinal/Abdominal: Bowel Sounds (normal), Soft, No Tenderness, Distenti on (+ abdomen distended) Extremity: Pedal Edema (bilaterally) Extremity: Left: Other (AV Graft in LUE, with +thrill and bruit), Bilateral: Normal Color And Temperature Neurological/Psych: Other (Awake, alert) ED Course And Treatment - Laboratory Results Result Diagrams: 07/07/18 13:25 07/07/18 13:25 ECG: Interpreted By Me, Viewed By Me ECG Rhythm: Sinus Rhythm Interpretation Of ECG: normal intervals, normal axis, no ST elevations, low voltage Rate From EC (bpm) O2 Sat by Pulse Oximetry: 94 (on RA) Pulse Ox Interpretation: Abnormal - CT Scan/US CT Abdomen/Pelvis Other Rad Studies (CT/US): Read By Radiologist, Radiology Report Reviewed CT/US Interpretation: Accession No. : [id number]. Patient Name / ID : DINA PHILLIPS / [id number]. Exam Date : 07/07/2018 15:54:19 ( Approved ). Study Comment : Sex / Age : F / 57Y. Creator : Betty Williamson. Dictator : Garry Vale MD. Die Cleaner : [place] Operator : Garry Vale MD. Approver2 : Report Date : 07/07/2018 16:35:04. My Comment : . Date of service: 07/07/2018. PROCEDURE: CT Abdomen and Pelvis with contrast. HISTORY: abdominal distention. COMPARISON: Abdomen pelvis CT 09/11/2012, without contrast. TECHNIQUE: Contrast dose: No additional intravenous contrast after dose given for chest CT. Please see separate chest CT report also performed 07/07/2018. Radiation dose: Total exam DLP = 1050.86 mGy-cm. This CT exam was performed using one or more of the following dose reduction techniques: Automated exposure control, adjustment of the mA and/or kV according to patient size, and/or use of iterative reconstruction technique. FINDINGS: LOWER THORAX: Please see separate chest CT report 07/07/2018. LIVER: Relatively prominent periportal edema is appreciated which is a nonspecific finding. No definite focal hepatic mass evident. There is hepatomegaly. GALLBLADDER AND BILE DUCTS: Gallbladder appears moderately distended without prominent mural thickening. No radiodense cholelithiasis identified. PANCREAS: Prior pancreatitis pattern is not clearly evident currently, particularly the widespread anasarca pattern and lymphadenopathy appreciated. Pancreas appears grossly nonfocal as imaged. Clinically correlate further nevertheless. SPLEEN: Unremarkable. ADRENALS: Unremarkable. No mass. KIDNEYS AND URETERS: There multiple tiny lucencies scattered at the renal parenchyma bilaterally under 1 cm size in too small to characterize. A 1.7 cm posterior midpole left renal lucency measures 1.3 greatest dimension and 17 Hounsfield units compatible with a cyst. No obstructive uropathy bilaterally. No radiodense urolithiasis bilaterally. VASCULATURE: Unremarkable. No aortic aneurysm. Trace abdominal aortic atherosclerotic calcifications are identified. BOWEL: The bowel does not appear obstructed. Moderate fecal loading is scattered throughout upper greater than lower large-bowel segments. Evaluation of the gastrointestinal tract is limited due to the lack of oral contrast administration. Small-bowel appears diffusely collapsed in general. APPENDIX: Not identified. PERITONEUM: Injected mesenteric fat is appreciate diffusely and is also seen in the extra abdominal fat reflecting anasarca. Limited pelvic ascites appreciated, of uncertain origin. No free intra peritoneal gas collection appreciated. Nonspecific density changes seen at the umbilicus potentially reflecting reduction of prior umbilical hernia. LYMPH NODES: Mild lymphadenopathy is appreciated at the upper retroperitoneum including the medial bilateral perirenal spaces with a 2.6 x 1.0 cm lymph node identified at the left and image 75 image 65 series 7 and 1.2 x 2.1 cm lymph node in nearly the same location at the right. Multiple lesser sized lymph nodes are seen in the periaortic and aortocaval spaces. BLADDER: Urinary bladder is nearly completely decompressed and poorly evaluated. REPRODUCTIVE: Calcified fibroid uterine changes are identified in limited distribution in the uterus. BONES: No acute fracture. OTHER FINDINGS: None. IMPRESSION: 1. Hepatomegaly is appreciate without focal hepatic mass. Periportal edema is appreciated of uncertain origin. 2. No bowel obstruction is identified. Limited pelvic ascites is appreciated. Mild retroperitoneal lymphadenopathy is appreciated of uncertain origin. 3. Anasarca. 4. Left renal cyst. Multiple tiny lucencies scattered in both kidneys infrequently, which are too small to characterize. No obstructive uropathy or significant perinephric reaction bilaterally. 5. Uterine fibroid changes. No gross adnexal masses identified. CTA Chest [PE protocol] Other Rad Studies (CT/US): Read By Radiologist, Radiology Report Reviewed CT/US Interpretation: Accession No. : [id number]. Patient Name / ID : CHERYL PHILLIPS / [id number]. Exam Date : 07/07/2018 15:54:19 ( Approved ). Study Comment : Sex / Age : F / 57Y. Creator : Betty Williamson. Dictator : Garry Vale MD. Die Cleaner : [place] Operator : Garry Vale MD. Approver2 : Report Date : 07/07/2018 16:02:52. My Comment : . Date of service: 07/07/2018. PROCEDURE: CT Chest with contrast (Pulmonary Angiogram). HISTORY: SOB. COMPARISON: None available. TECHNIQUE: Axial computed tomography images were obtained of the chest in the pulmonary arterial phase of enhancement. Coronal and sagittal reformatted images were created and reviewed. Intravenous contrast dose: Visipaque 320, 100 cc. Radiation dose: Total exam DLP = 1727.35 mGy-cm. This CT exam was performed using one or more of the following dose reduction techniques: Automated exposure control, adjustment of the mA and/or kV according to patient size, and/or use of iterative reconstruction technique. FINDINGS: PULMONARY ARTERIES: Unremarkable. No pulmonary embolism. Normal comparative volumes of right lateral to left lateral ventricle ratio appreciated. AORTA: No acute findings. No thoracic aortic aneurysm. Trace atherosclerotic calcified plaque identified. Pulmonary artery appears distended to 3.5 cm which may indicate pulmonary artery hypertension. Clinically correlate further. LUNGS: A faint non solid nodule is question in the left lower lobe image 58. 1.2 cm nodule is seen at the right lower lobe in image 69. Additional nodular changes are questioned related to dependent bilateral lower lobes are felt to be a reflection of subsegmental atelectasis rather than true nodules but are poorly characterized due to local atelectasis. Additional faint nodule 4 mm greatest dimension is question image 47 series 4. Dependent atelectasis favored over pneumonia at the bilateral lower lobes though pneumonia is not completely excluded. Linear atelectasis or fibrosis seen at the right middle lobe and lingula bases. PLEURAL SPACES: Tr noa right pleural effusion. None is seen the left. Limited pericardial effusion or thickening is seen toward the right. HEART: Cardiomegaly is noted with limited right pericardial effusion. 5.5 mm noncalcified nodule left upper lobe image 28 series 4. 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 Clinically correlate further. LYMPH NODES: Moderate mediastinal lymphadenopathy is appreciated as well as the left axilla including preaortic lymph node measuring 2.7 x 1.4 cm, inferior left paratracheal lymph node measuring 3.1 x 1.7 cm subcarinal lymph node measuring 2.7 x 1.7 cm another similar lymph nodes in the paratracheal and preaortic spaces. While shotty right axillary lymph nodes are identified, mildly enlarged lymph nodes are relatively numerous at the left axilla measuring to much 1.0 x 2.2 cm. No gross chest wall mass appreciable including the breasts. Clinically correlate further. Shotty lymphadenopathy seen in the sub pectoralis space, left greater than right as well. BONES, CHEST WALL: Unremarkable. No fracture or destructive lesion. OTHER FINDINGS: Upper abdomen is evaluated in separate abdomen pelvis CT performed concurrently. Please see separate report. IMPRESSION: 1. No CT evidence of pulmonary embolus. 2. Mediastinal, left axilla and anterior chest wall lymphadenopathy identified with a few pulmonary nodules potentially reflecting metastatic malignancy. Clinically correlate further. 3. Dense atelectasis favored over pneumonia bilateral dependent lower lobes as per above. Minimal right pleural effusion and minimal pericardial effusion. Cardiomegaly. Borderline pulmonary vascular congestion. Medical Decision Making Medical Decision Making: Initial finger stick = 43 O2 sat remains in the high 80s despite receiving O2 via nasal cannula Impression: Hypoglycemia, Hypoxia Plan: - ABG - CMP, CBC, cardiac enzymes, coags - Blood cultures - EKG - CT Abdomen/Pelvis - CTA Chest 12:26 Patient was given PO apple juice. D50 IVF administered. Repeat finger stick is 109 Labs resulted. Trop negative, Pro-BNP [address] and CTA imaging 14:45 Patient placed on BIPAP, O2sat improved to 100%. ABG reviewed, consistent with respiratory acidosis CT findings reviewed CTA findings reviewed, suggestive of metastatic lung nodules. 17:[address] Banda, notified of results, will arrange dialysis. 17:[address] Dunne, patient accepted for admission to medical service. Disposition Counseled Patient/Family Regarding: Studies Performed, Diagnosis - Disposition Disposition: HOSPITALIZED Disposition Time: 17:08 Condition: STABLE Forms: [employer] (Paraguayan) - Clinical Impression Clinical Impression: Respiratory failure with hypoxia, Dyspnea, Pulmonary nodules, ESRD needing d ialysis, Hypoglycemia, CHF (congestive heart failure) - Scribe Statement The provider has reviewed the documentation as recorded by the Reuben Harvey Provider Attestation: All medical record entries made by the Reuben were at my direction and personally dictated by me. I have reviewed the chart and agree that the record accurately reflects my personal performance of the history, physical exam, medical decision making, and the department course for this patient. I have also personally directed, reviewed, and agree with the discharge instructions and disposition.
[2018-07-07 13:30] LABS: BASO # 0.1 K/uL (0.0-0.2); BASO % 1.4 % (0.0-2.0); EOS # 0.2 K/uL (0.0-0.7); EOS % 2.9 % (0.0-4.0); LYMPH # 0.9 K/uL (1.0-4.3); LYMPH % 15.4 % (20.0-40.0); MEAN CORPUSCULAR HEMOGLOBIN 29.4 pg (27.0-31.0); MEAN CORPUSCULAR HGB CONC 31.9 g/dL (33.0-37.0); MONO # 0.4 K/uL (0.0-0.8); MONO % 5.9 % (0.0-10.0); NEUT # 4.5 K/uL (1.8-7.0); NEUT % 74.4 % (50.0-75.0); NRBC % 0.2 % (0.0-2.0); RBC 3.91 Mil/uL (3.80-5.20); RED CELL DISTRIBUTION WIDTH 20.8 % (11.5-14.5)
[2018-07-07 13:32] LABS: HEMOGLOBIN 11.5 g/dL (11.0-16.0); WHITE BLOOD COUNT 6.1 K/uL (4.8-10.8)
[2018-07-07 13:38] LABS: INR 1.1; PROTHROMBIN TIME 11.5 SECONDS (9.7-12.2)
[2018-07-07 13:54] LABS: ABG ALLEN TEST POS; ARTERIAL BLOOD GAS HCO3 24.5 mmol/L (21-28); ARTERIAL BLOOD GAS HEMOGLOBIN 11.2 g/dL (11.7-17.4); ARTERIAL BLOOD GAS O2 SAT 81.7 % (95-98); ARTERIAL BLOOD GAS PCO2 49 mm/Hg (35-45); ARTERIAL BLOOD GAS PH 7.34 (7.35-7.45); ARTERIAL BLOOD GAS PO2 42 mm/Hg (80-100); ARTERIAL BLOOD GAS TCO2 27.9 mmol/L (22-28)
[2018-07-07 14:11] LABS: TROPONIN I 0.016 ng/mL (0.00-0.120)
[2018-07-07 14:19] LABS: ALB/GLOB RATIO 1.4 (1.0-2.1); ALBUMIN 5.1 g/dL (3.5-5.0); CALCIUM 9.8 mg/dl (8.6-10.4)
[2018-07-07] MEDS ORDERED: Iodixanol 320 MG/ML 100 ML BOTTLE IV ONE (15:19)
--- NOTE | 2018-07-07 16:20 | RAD ---
HISTORY: sob COMPARISON: Chest x-ray performed 12/13/17 TECHNIQUE: Chest, one view. FINDINGS: LUNGS: Small to moderate bilateral pleural effusions and associated consolidations. No definite pneumothorax. CARDIOVASCULAR: Cardiomegaly. Atherosclerotic calcification present. OSSEOUS STRUCTURES: Degenerative changes. VISUALIZED UPPER ABDOMEN: Unremarkable. OTHER FINDINGS: Left subclavian and axillary vascular stents. IMPRESSION: Cardiomegaly. Small to moderate bilateral pleural effusions and associated consolidations.
--- NOTE | 2018-07-07 16:28 | CT ---
Date of service: 07/07/2018 PROCEDURE: CT Chest with contrast (Pulmonary Angiogram) HISTORY: SOB COMPARISON: None available. TECHNIQUE: Axial computed tomography images were obtained of the chest in the pulmonary arterial phase of enhancement. Coronal and sagittal reformatted images were created and reviewed. Intravenous contrast dose: Visipaque 320, 100 cc Radiation dose: Total exam DLP = 1727.35 mGy-cm. This CT exam was performed using one or more of the following dose reduction techniques: Automated exposure control, adjustment of the mA and/or kV according to patient size, and/or use of iterative reconstruction technique. FINDINGS: PULMONARY ARTERIES: Unremarkable. No pulmonary embolism. Normal comparative volumes of right lateral to left lateral ventricle ratio appreciated. AORTA: No acute findings. No thoracic aortic aneurysm. Trace atherosclerotic calcified plaque identified. Pulmonary artery appears distended to 3.5 cm which may indicate pulmonary artery hypertension. Clinically correlate further. LUNGS: A faint non solid nodule is question in the left lower lobe image 58. 1.2 cm nodule is seen at the right lower lobe in image 69. Additional nodular changes are questioned related to dependent bilateral lower lobes are felt to be a reflection of subsegmental atelectasis rather than true nodules but are poorly characterized due to local atelectasis. Additional faint nodule 4 mm greatest dimension is question image 47 series 4. Dependent atelectasis favored over pneumonia at the bilateral lower lobes though pneumonia is not completely excluded. Linear atelectasis or fibrosis seen at the right middle lobe and lingula bases. PLEURAL SPACES: Trace right pleural effusion. None is seen the left. Limited pericardial effusion or thickening is seen toward the right. HEART: Cardiomegaly is noted with limited right pericardial effusion. 5.5 mm noncalcified nodule left upper lobe image 28 series 4. 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 Clinically correlate further. LYMPH NODES: Moderate mediastinal lymphadenopathy is appreciated as well as the left axilla including preaortic lymph node measuring 2.7 x 1.4 cm, inferior left paratracheal lymph node measuring 3.1 x 1.7 cm subcarinal lymph node measuring 2.7 x 1.7 cm another similar lymph nodes in the paratracheal and preaortic spaces. While shotty right axillary lymph nodes are identified, mildly enlarged lymph nodes are relatively numerous at the left axilla measuring to much 1.0 x 2.2 cm. No gross chest wall mass appreciable including the breasts. Clinically correlate further. Shotty lymphadenopathy seen in the sub pectoralis space, left greater than right as well. BONES, CHEST WALL: Unremarkable. No fracture or destructive lesion OTHER FINDINGS: Upper abdomen is evaluated in separate abdomen pelvis CT performed concurrently. Please see separate report. IMPRESSION: 1. No CT evidence of pulmonary embolus. 2. Mediastinal, left axilla and anterior chest wall lymphadenopathy identified with a few pulmonary nodules potentially reflecting metastatic malignancy. Clinically correlate further. 3. Dense atelectasis favored over pneumonia bilateral dependent lower lobes as per above. Minimal right pleural effusion and minimal pericardial effusion. Cardiomegaly. Borderline pulmonary vascular congestion.
--- NOTE | 2018-07-07 16:56 | CT ---
Date of service: 07/07/2018 PROCEDURE: CT Abdomen and Pelvis with contrast HISTORY: abdominal distention COMPARISON: Abdomen pelvis CT 09/11/2012, without contrast. TECHNIQUE: Contrast dose: No additional intravenous contrast after dose given for chest CT. Please see separate chest CT report also performed 07/07/2018. Radiation dose: Total exam DLP = 1050.86 mGy-cm. This CT exam was performed using one or more of the following dose reduction techniques: Automated exposure control, adjustment of the mA and/or kV according to patient size, and/or use of iterative reconstruction technique. FINDINGS: LOWER THORAX: Please see separate chest CT report 07/07/2018. LIVER: Relatively prominent periportal edema is appreciated which is a nonspecific finding. No definite focal hepatic mass evident. There is hepatomegaly. GALLBLADDER AND BILE DUCTS: Gallbladder appears moderately distended without prominent mural thickening. No radiodense cholelithiasis identified. PANCREAS: Prior pancreatitis pattern is not clearly evident currently, particularly the widespread anasarca pattern and lymphadenopathy appreciated. Pancreas appears grossly nonfocal as imaged. Clinically correlate further nevertheless. SPLEEN: Unremarkable. ADRENALS: Unremarkable. No mass. KIDNEYS AND URETERS: There multiple tiny lucencies scattered at the renal parenchyma bilaterally under 1 cm size in too small to characterize. A 1.7 cm posterior midpole left renal lucency measures 1.3 greatest dimension and 17 Hounsfield units compatible with a cyst. No obstructive uropathy bilaterally. No radiodense urolithiasis bilaterally. VASCULATURE: Unremarkable. No aortic aneurysm. Trace abdominal aortic atherosclerotic calcifications are identified. BOWEL: The bowel does not appear obstructed. Moderate fecal loading is scattered throughout upper greater than lower large-bowel segments. Evaluation of the gastrointestinal tract is limited due to the lack of oral contrast administration. Small-bowel appears diffusely collapsed in general. APPENDIX: Not identified. PERITONEUM: Injected mesenteric fat is appreciate diffusely and is also seen in the extra abdominal fat reflecting anasarca. Limited pelvic ascites appreciated, of uncertain origin. No free intra peritoneal gas collection appreciated. Nonspecific density changes seen at the umbilicus potentially reflecting reduction of prior umbilical hernia. LYMPH NODES: Mild lymphadenopathy is appreciated at the upper retroperitoneum including the medial bilateral perirenal spaces with a 2.6 x 1.0 cm lymph node identified at the left and image 75 image 65 series 7 and 1.2 x 2.1 cm lymph node in nearly the same location at the right. Multiple lesser sized lymph nodes are seen in the periaortic and aortocaval spaces. BLADDER: Urinary bladder is nearly completely decompressed and poorly evaluated. REPRODUCTIVE: Calcified fibroid uterine changes are identified in limited distribution in the uterus. BONES: No acute fracture. OTHER FINDINGS: None. IMPRESSION: 1. Hepatomegaly is appreciate without focal hepatic mass. Periportal edema is appreciated of uncertain origin. 2. No bowel obstruction is identified. Limited pelvic ascites is appreciated. Mild retroperitoneal lymphadenopathy is appreciated of uncertain origin. 3. Anasarca. 4. Left renal cyst. Multiple tiny lucencies scattered in both kidneys infrequently, which are too small to characterize. No obstructive uropathy or significant perinephric reaction bilaterally. 5. Uterine fibroid changes. No gross adnexal masses identified.
[2018-07-08] MEDS: cefTRIAXone IV 1 gm in Dextros 50 ML IVPB SCH (01:03)
[2018-07-08] MEDS: (Novolin R) Insulin Human Regular 100 units/ml vial SC SCH ×4 (06:58→23:50)
[2018-07-08] MEDS ORDERED: [UNRECOGNIZED DRUG - SUPPLY] MC SCH (07:30)
[2018-07-08 07:50] LABS: HEMOGLOBIN 9.6 g/dL (11.0-16.0); MEAN CORPUSCULAR HEMOGLOBIN 29.1 pg (27.0-31.0); MEAN CORPUSCULAR HGB CONC 30.8 g/dL (33.0-37.0); MEAN PLATELET VOLUME 9.3 fL (7.2-11.7); RBC 3.31 Mil/uL (3.80-5.20); RED CELL DISTRIBUTION WIDTH 21.2 % (11.5-14.5)
[2018-07-08 08:04] LABS: MEAN CELL VOLUME 94.6 fL (81.0-99.0)
[2018-07-08 08:54] LABS: CALCIUM 8.9 mg/dl (8.6-10.4)
[2018-07-08] MEDS: Pantoprazole 40 mg EC Tab PO SCH (09:39)
[2018-07-08] MEDS: (Lantus) Insulin Glargine, Recombinant SC SCH ×2 (09:39→17:23)
[2018-07-08] MEDS: Multivitamin Vitamin B Complex (Nephro-Vite) Tab PO SCH (09:39)
[2018-07-08] MEDS: Azithromycin 500mg/250ML NS 500 MG/250 ML BAG IVPB SCH (09:40)
[2018-07-08 09:45] LABS: IRON 43 ug/dL (37-170)
[2018-07-08 10:00] LABS: % IRON SATURATION 23 (20-55); TOTAL IRON BINDING CAPACITY 190 ug/dL (250-450)
--- NOTE | 2018-07-08 10:38 | HP ---
CHIEF COMPLAINT: Hypoglycemia. HISTORY OF PRESENT ILLNESS: Ms. Shelley Gamez is a 57-year-old female with past medical history of renal failure, hemodialysis three times a week, sent in from dialysis today after she was found to be hypoglycemic. Patient is also complaining of swelling and pain on the left side of her abdomen. Patient was evaluated at [facility] this last week , she was told that she was hypoxic and needed to be on home oxygen. As well, the patient denies any fever, chills, nausea, vomiting, diarrhea. No hematuria, hematochezia. Actually, I saw patient in the dialysis center getting dialysis after ER visit. PAST MEDICAL HISTORY: Anemia; anxiety; depression; diabetes mellitus; fracture of left ankle and surgery; hypertension; hypercholesterolemia; pancreatitis; peripheral edema; end-stage renal disease, on hemodialysis. FAMILY HISTORY: Father and mother, noncontributory. HABITS: Smoking six sticks in two days. Alcohol, no. Substance abuse, no. REVIEW OF SYSTEMS: Patient was seen and examined at bedside in the dialysis center complaining about pain. No vision changes. No chest pain. No shortness of breath that moment. No nausea, vomiting, diarrhea. No dysuria. No rash. PHYSICAL EXAMINATION: VITAL SIGNS: Temperature 93.8, pulse 73, respiration 18, blood pressure 157/72, pulse oximetry 94. HEENT: Head is normocephalic atraumatic. Eyes: PERRLA. Extraocular muscles intact. Conjunctivae clear. Nose patent. NECK: Supple,no carotid bruit. No JVD, thyromegaly. CHEST: Bilaterally symmetrical. HEART: S1 and S2 positive. LUNGS: Clear to auscultation. ABDOMEN: Soft. Bowel sounds present. No organomegaly. EXTREMITIES: No edema. No cyanosis. NEUROLOGIC: Patient is awake and alert. Moving all four extremities. No focal deficits. LABORATORY DATA: White blood cell 6.4, hemoglobin 11.5, hematocrit 35.9, platelets 184. Sodium 143, potassium 3.8, bilirubin 45, creatinine 8.9, glucose 30. ASSESSMENT AND PLAN: Ms. Shelley Gamez is a 57-year-old lady with anemia; renal insufficiency, getting dialysis three times a week; hypoglycemia; hypoxia; pulmonary nodule; new onset end-stage renal disease, needs dialysis; congestive heart failure. Chest x-ray done and reviewed by me. Cardiomegaly is mild to moderate, bilateral pleural effusion and associated consolidation. CAT scan of the chest reviewed by me, mediastinal left axillary and inferior chest wall lymphadenopathy identified with few pulmonary nodules, potentially retracting metastatic malignancy. Dense atelectasis favoring over pneumonia, bilateral dependent lower lobe . Minimal right pleural effusion and minimal pericardial effusion and cardiomegaly. Moderate pulmonary vascular congestion. We will consult with the automotive sales executive and oncologist, give renal and diabetic diet, gastrointestinal and deep vein thrombosis prophylaxis, repeat labs. We will follow up. July Dunne MD [email or web address]
[2018-07-08 11:44] LABS: FOLATE > 20.0 ng/mL
--- NOTE | 2018-07-08 12:07 | CP.PCM.CON ---
History of Present Illness - History of Present Illness History of Present Illness: INFECTIOUS DISEASE CONSULT; DICTATED; 07/08/18 DICT NO . [id number]. IMPRESSION; PULMONARY NODULES WITH LYMPHADENOPATHY ? R/O MALIGNANCY LUNG VS METASTATIC DISEASE HYPOXEMIA R/O PNEUMONIA LLL -VE PE BY CT ANGIO. ESRD ON HD TTS. HYPOGLYCEMIA DIABETES MELLITUS. HYPERTENSION. PLAN; PANCULTURES MRSA SCREEN ATYPICAL TITERS. CONTINUE iv ROCEPHIN 1 G ONCE A DAY 07/08/17 ADD IV zITHROMAX 500 MG ONCE A DAY. 07/08/18. PULMONARY ON BOARD SUGGESTING LUNG BIOPSY. HEMATOLOGY ONCOLOGY EVALUATION IN PROGRESS. WILL F/U NEEDED. Past Patient History - Infectious Disease Hx of Infectious Diseases: None - Tetanus Immunizations Tetanus Immunization: Unknown - Past Medical History & Family History Past Medical History?: Yes - Past Social History Smoking Status: Never Smoked - CARDIAC Hx Hypercholesterolemia: Yes Hx Hypertension: Yes Hx Pacemaker: No Hx Peripheral Edema: Yes (Left arm/Lhand/ble/ none at present time) - PULMONARY Hx Respiratory Disorders: No - NEUROLOGICAL Hx Neurological Disorder: No Hx Paralysis: No - HEENT Hx HEENT Problems: Yes Hx Glaucoma: Yes - RENAL Hx Chronic Kidney Disease: Yes - ENDOCRINE/METABOLIC Hx Endocrine Disorders: Yes Hx Diabetes Mellitus Type 2: Yes - HEMATOLOGICAL/ONCOLOGICAL Hx Anemia: Yes (blood transfusion) Hx Human Immunodeficiency Virus (HIV): No - INTEGUMENTARY Hx Dermatological Problems: No - MUSCULOSKELETAL/RHEUMATOLOGICAL Hx Falls: No Hx Fractures: Yes (left ankle fx and surgery) - GASTROINTESTINAL Hx Pancreatitis: Yes - GENITOURINARY/GYNECOLOGICAL Hx Genitourinary Disorders: Yes Hx Urinary Tract Infection: Yes - PSYCHIATRIC Hx Anxiety: Yes Hx Depression: Yes Hx Substance Use: No - SURGICAL HISTORY Hx Appendectomy: No (Denies.) - ANESTHESIA Hx Anesthesia: Yes Hx Anesthesia Reactions: No Hx Malignant Hyperthermia: No Meds Allergies/Adverse Reactions: Allergies Allergy/AdvReac Type Severity Reaction Status Date / Time No Known Allergies Allergy Verified 12/13/17 12:34 - Medications Medications: Current Medications Heparin Sodium (Porcine) (Heparin) 5,000 units SC Q12 [facility] Last Admin: 07/08/18 10:42 Dose: 5,000 units Ceftriaxone Sodium (Rocephin Iv 1 Gm Duplex) 50 mls @ 100 mls/hr IVPB Q24H [facility]; Protocol Last Admin: 07/08/18 01:03 Dose: 100 mls/hr Azithromycin (Zithromax 500mg In Ns Addvantage) 500 mg in 250 mls @ 167 mls/hr IVPB Q24H COUNTS INCLUDE 234 BEDS AT THE [facility]; Protocol Last Admin: 07/08/18 09:40 Dose: 167 mls/hr Influenza Virus Vaccine (Flucelvax Quad [id number] Syr) 60 mcg IM .ONCE ONE Stop: 07/09/18 10:01 Insulin Glargine (Lantus) 10 unit SC BID COUNTS INCLUDE 234 BEDS AT THE [facility] Last Admin: 07/08/18 09:39 Dose: 10 unit Insulin Human Regular (Novolin R) 0 unit SC ACHS COUNTS INCLUDE 234 BEDS AT THE [facility]; Protocol Last Admin: 07/08/18 11:25 Dose: 6 units Metoprolol Tartrate (Lopressor) 50 mg PO BID COUNTS INCLUDE 234 BEDS AT THE [facility] Last Admin: 07/08/18 09:39 Dose: 50 mg Minoxidil (Minoxidil) 5 mg PO BID COUNTS INCLUDE 234 BEDS AT THE [facility] Last Admin: 07/08/18 09:54 Dose: 5 mg Ondansetron HCl (Zofran Inj) 4 mg IVP Q4H PRN PRN Reason: Nausea/Vomiting Last Admin: 07/08/18 02:48 Dose: 4 mg Pantoprazole Sodium (Protonix Ec Tab) 40 mg PO DAILY COUNTS INCLUDE 234 BEDS AT THE [facility] Last Admin: 07/08/18 09:39 Dose: 40 mg Rosuvastatin Calcium (Crestor) 10 mg PO [facility] Sevelamer Carbonate (Renvela) 800 mg PO TID COUNTS INCLUDE 234 BEDS AT THE [facility] Last Admin: 07/08/18 09:39 Dose: 800 mg Sitagliptin Phosphate (Januvia) 25 mg PO DAILY COUNTS INCLUDE 234 BEDS AT THE [facility] Last Admin: 07/08/18 09:39 Dose: 25 mg Tramadol HCl (Ultram) 50 mg PO Q6H PRN PRN Reason: Pain, severe (8-10) Last Admin: 07/08/18 05:30 Dose: 50 mg Vitamin B Complex/Vit C/Folic Acid (Nephro-Tiffanie) 1 tab PO DAILY COUNTS INCLUDE 234 BEDS AT THE [facility] Last Admin: 07/08/18 09:39 Dose: 1 tab Results - Vital Signs Recent Vital Signs: Last Vital Signs Temp 98.3 F 07/08/18 07:15 Pulse 93 H 07/08/18 07:15 Resp 20 07/08/18 07:15 BP 118/55 L 07/08/18 07:15 Pulse Ox 95 07/08/18 07:15 - Labs Result Diagrams: 07/08/18 07:36 07/08/18 07:36 Labs: Laboratory Results - last 24 hr 07/07/18 07/07/18 07/07/18 12:04 12:25 13:25 WBC 6.1 D RBC 3.91 Hgb 11.5 D Hct 35.9 MCV 92.0 D MCH 29.4 MCHC 31.9 L RDW 20.8 H Plt Count 184 MPV 9.0 Neut % (Auto) 74.4 Lymph % (Auto) 15.4 L Gillespie % (Auto) 5.9 Eos % (Auto) 2.9 Baso % (Auto) 1.4 Neut # (Auto) 4.5 Lymph # (Auto) 0.9 L Gillespie # (Auto) 0.4 Eos # (Auto) 0.2 Baso # (Auto) 0.1 PT INR APTT Puncture Site pCO2 pO2 HCO3 ABG pH ABG Total CO2 ABG O2 Saturation ABG Base Excess ABG Hemoglobin ABG Carboxyhemoglobin POC ABG HHb (Measured) ABG Methemoglobin David Test Hgb O2 Saturation Liter Flow Crit Value Called To Crit Value Called By Crit Value Read Back Blood Gas Notified Time Sodium Potassium Chloride Carbon Dioxide Anion Gap BUN Creatinine Est GFR ( Amer) Est GFR (Non-Af Amer) POC Glucose (mg/dL) 52 L 109 Random Glucose Hemoglobin A1c Calcium Iron TIBC % Saturation Total Bilirubin AST ALT Alkaline Phosphatase Lactate Dehydrogenase Troponin I NT-Pro-B Natriuret Pep Total Protein Albumin Globulin Albumin/Globulin Ratio Vitamin B12 Folate TSH 3rd Generation Hep Bs Antigen 07/07/18 07/07/18 07/07/18 13:25 13:25 13:45 WBC RBC Hgb Hct MCV MCH MCHC RDW Plt Count MPV Neut % (Auto) Lymph % (Auto) Gillespie % (Auto) Eos % (Auto) Baso % (Auto) Neut # (Auto) Lymph # (Auto) Gillespie # (Auto) Eos # (Auto) Baso # (Auto) PT 11.5 INR 1.1 APTT 35 H Puncture Site Rr pCO2 49 H pO2 42 L* HCO3 24.5 ABG pH 7.34 L ABG Total CO2 27.9 ABG O2 Saturation 81.7 L ABG Base Excess 0.1 ABG Hemoglobin 11.2 L ABG Carboxyhemoglobin 7.3 H POC ABG HHb (Measured) 16.8 H ABG Methemoglobin 0.8 David Test Pos Hgb O2 Saturation 75.1 L Liter Flow 6.0 Crit Value Called To Sharon hardy rn Crit Value Called By Selam mccall, Crit Value Read Back Y Blood Gas Notified Time 1354 Sodium 143 Potassium 3.8 Chloride 103 Carbon Dioxide 25 Anion Gap 19 BUN 41 H Creatinine 8.9 H* Est GFR ( Amer) 6 Est GFR (Non-Af Amer) 5 POC Glucose (mg/dL) Random Glucose 30 L* D Hemoglobin A1c Calcium 9.8 Iron TIBC % Saturation Total Bilirubin 0.9 AST 35 ALT 34 Alkaline Phosphatase 183 H Lactate Dehydrogenase Troponin I 0.0160 NT-Pro-B Natriuret Pep 71551 H Total Protein 8.7 H Albumin 5.1 H Globulin 3.6 Albumin/Globulin Ratio 1.4 Vitamin B12 Folate TSH 3rd Generation Hep Bs Antigen 07/07/18 07/07/18 07/07/18 14:48 20:17 21:27 WBC RBC Hgb Hct MCV MCH MCHC RDW Plt Count MPV Neut % (Auto) Lymph % (Auto) Gillespie % (Auto) Eos % (Auto) Baso % (Auto) Neut # (Auto) Lymph # (Auto) Gillespie # (Auto) Eos # (Auto) Baso # (Auto) PT INR APTT Puncture Site pCO2 pO2 HCO3 ABG pH ABG Total CO2 ABG O2 Saturation ABG Base Excess ABG Hemoglobin ABG Carboxyhemoglobin POC ABG HHb (Measured) ABG Methemoglobin David Test Hgb O2 Saturation Liter Flow Crit Value Called To Crit Value Called By Crit Value Read Back Blood Gas Notified Time Sodium Potassium Chloride Carbon Dioxide Anion Gap BUN Creatinine Est GFR ( Amer) Est GFR (Non-Af Amer) POC Glucose (mg/dL) 150 H 217 H Random Glucose Hemoglobin A1c Calcium Iron TIBC % Saturation Total Bilirubin AST ALT Alkaline Phosphatase Lactate Dehydrogenase Troponin I NT-Pro-B Natriuret Pep Total Protein Albumin Globulin Albumin/Globulin Ratio Vitamin B12 Folate TSH 3rd Generation Hep Bs Antigen Negative 07/07/18 07/08/18 07/08/18 22:38 00:45 06:33 WBC RBC Hgb Hct MCV MCH MCHC RDW Plt Count MPV Neut % (Auto) Lymph % (Auto) Gillespie % (Auto) Eos % (Auto) Baso % (Auto) Neut # (Auto) Lymph # (Auto) Gillespie # (Auto) Eos # (Auto) Baso # (Auto) PT INR APTT Puncture Site pCO2 pO2 HCO3 ABG pH ABG Total CO2 ABG O2 Saturation ABG Base Excess ABG Hemoglobin ABG Carboxyhemoglobin POC ABG HHb (Measured) ABG Methemoglobin David Test Hgb O2 Saturation Liter Flow Crit Value Called To Crit Value Called By Crit Value Read Back Blood Gas Notified Time Sodium Potassium Chloride Carbon Dioxide Anion Gap BUN Creatinine Est GFR ( Amer) Est GFR (Non-Af Amer) POC Glucose (mg/dL) 267 H 427 H* > 500 H* Random Glucose Hemoglobin A1c Calcium Iron TIBC % Saturation Total Bilirubin AST ALT Alkaline Phosphatase Lactate Dehydrogenase Troponin I NT-Pro-B Natriuret Pep Total Protein Albumin Globulin Albumin/Globulin Ratio Vitamin B12 Folate TSH 3rd Generation Hep Bs Antigen 07/08/18 07/08/18 07/08/18 07:36 07:36 07:36 WBC 6.0 RBC 3.31 L Hgb 9.6 L Hct 31.3 L MCV 94.6 D MCH 29.1 MCHC 30.8 L RDW 21.2 H Plt Count 141 MPV 9.3 Neut % (Auto) Lymph % (Auto) Gillespie % (Auto) Eos % (Auto) Baso % (Auto) Neut # (Auto) Lymph # (Auto) Gillespie # (Auto) Eos # (Auto) Baso # (Auto) PT INR APTT Puncture Site pCO2 pO2 HCO3 ABG pH ABG Total CO2 ABG O2 Saturation ABG Base Excess ABG Hemoglobin ABG Carboxyhemoglobin POC ABG HHb (Measured) ABG Methemoglobin David Test Hgb O2 Saturation Liter Flow Crit Value Called To Crit Value Called By Crit Value Read Back Blood Gas Notified Time Sodium 131 L Potassium 4.6 Chloride 92 L Carbon Dioxide 22 Anion Gap 21 H BUN 31 H Creatinine 5.8 H Est GFR ( Amer) 9 Est GFR (Non-Af Amer) 8 POC Glucose (mg/dL) Random Glucose 591 H* D Hemoglobin A1c Calcium 8.9 Iron TIBC % Saturation Total Bilirubin AST ALT Alkaline Phosphatase Lactate Dehydrogenase 437 Troponin I NT-Pro-B Natriuret Pep Total Protein Albumin Globulin Albumin/Globulin Ratio Vitamin B12 596 Folate > 20.0 TSH 3rd Generation 0.87 Hep Bs Antigen 07/08/18 07/08/18 07/08/18 07:36 07:36 11:14 WBC RBC Hgb Hct MCV MCH MCHC RDW Plt Count MPV Neut % (Auto) Lymph % (Auto) Gillespie % (Auto) Eos % (Auto) Baso % (Auto) Neut # (Auto) Lymph # (Auto) Gillespie # (Auto) Eos # (Auto) Baso # (Auto) PT INR APTT Puncture Site pCO2 pO2 HCO3 ABG pH ABG Total CO2 ABG O2 Saturation ABG Base Excess ABG Hemoglobin ABG Carboxyhemoglobin POC ABG HHb (Measured) ABG Methemoglobin David Test Hgb O2 Saturation Liter Flow Crit Value Called To Crit Value Called By Crit Value Read Back Blood Gas Notified Time Sodium Potassium Chloride Carbon Dioxide Anion Gap BUN Creatinine Est GFR ( Amer) Est GFR (Non-Af Amer) POC Glucose (mg/dL) > 500 H* Random Glucose Hemoglobin A1c 7.7 H D Calcium Iron 43 TIBC 190 L % Saturation 23 Total Bilirubin AST ALT Alkaline Phosphatase Lactate Dehydrogenase Troponin I NT-Pro-B Natriuret Pep Total Protein Albumin Globulin Albumin/Globulin Ratio Vitamin B12 Folate TSH 3rd Generation Hep Bs Antigen
--- NOTE | 2018-07-08 14:33 | CARD ---
APPROVED REPORT Date of service: 07/07/2018 EKG Measurement Heart [id number] <Conclusion> Normal sinus rhythm Possible Left atrial enlargement Low voltage QRS Borderline ECG
--- NOTE | 2018-07-08 14:42 | CP.PCM.CON ---
History of Present Illness - History of Present Illness History of Present Illness: HPI: 57-year-old female with history of ESRD brought to the hospital due to an episode of hypoglycemia, while undergoing hemodialysis. Patient states that he did not experience any hypoglycemic symptoms such as tachycardia, dizziness, or lightheadedness during the episode. Pulmonology consulted due to incidental finding of multiple pulmonary nodules, indicating possible metastatic malignancy to the lungs. At this time, patient feels well and has no complaints other than symptoms of nicotine withdrawal. Patient states that she smoked a couple cigarillos per day since she was 18 and has not made any effort to quit. He denies any difficulty breathing, chest pain, edema, abdominal pain, nausea, or vomiting. PMH: anemia, anxiety, depression, diabetes, hypertension, hypercholesterolemia, pancreatitis, edema, ESRD on hemodialysis PSH: repair of left ankle fracture Social: smoked a couple unfiltered cigarillos per day for 39 years ROS: 10 point ROS negative except as per HPI Exam: General: No acute distress HEENT: Poor dentition Heart: RRR, S1, S2, no murmurs, rubs or gallops Lungs: CTA b/l Abdomen: soft, nontender, nondistended Extremities: No pitting edema or calf tenderness Neuro: AAOx3 Psych: Normal affect, normal mood Assessment & Plan: 1. Pulmonary nodules: Incidentally found on CT Chest. Possibly due to metastatic malignancy. Heme/onc consult appreciated. Consider lung biopsy by IR Past Patient History - Infectious Disease Hx of Infectious Diseases: None - Tetanus Immunizations Tetanus Immunization: Unknown - Past Medical History & Family History Past Medical History?: Yes - Past Social History Smoking Status: Never Smoked - CARDIAC Hx Hypercholesterolemia: Yes Hx Hypertension: Yes Hx Pacemaker: No Hx Peripheral Edema: Yes (Left arm/Lhand/ble/ none at present time) - PULMONARY Hx Respiratory Disorders: No - NEUROLOGICAL Hx Neurological Disorder: No Hx Paralysis: No - HEENT Hx HEENT Problems: Yes Hx Glaucoma: Yes - RENAL Hx Chronic Kidney Disease: Yes - ENDOCRINE/METABOLIC Hx Endocrine Disorders: Yes Hx Diabetes Mellitus Type 2: Yes - HEMATOLOGICAL/ONCOLOGICAL Hx Anemia: Yes (blood transfusion) Hx Human Immunodeficiency Virus (HIV): No - INTEGUMENTARY Hx Dermatological Problems: No - MUSCULOSKELETAL/RHEUMATOLOGICAL Hx Falls: No Hx Fractures: Yes (left ankle fx and surgery) - GASTROINTESTINAL Hx Pancreatitis: Yes - GENITOURINARY/GYNECOLOGICAL Hx Genitourinary Disorders: Yes Hx Urinary Tract Infection: Yes - PSYCHIATRIC Hx Anxiety: Yes Hx Depression: Yes Hx Substance Use: No - SURGICAL HISTORY Hx Appendectomy: No (Denies.) - ANESTHESIA Hx Anesthesia: Yes Hx Anesthesia Reactions: No Hx Malignant Hyperthermia: No Meds Allergies/Adverse Reactions: Allergies Allergy/AdvReac Type Severity Reaction Status Date / Time No Known Allergies Allergy Verified 12/13/17 12:34 - Medications Medications: Current Medications Heparin Sodium (Porcine) (Heparin) 5,000 units SC Q12 [facility] Last Admin: 07/08/18 10:42 Dose: 5,000 units Ceftriaxone Sodium (Rocephin Iv 1 Gm Duplex) 50 mls @ 100 mls/hr IVPB Q24H [facility]; Protocol Last Admin: 07/08/18 01:03 Dose: 100 mls/hr Azithromycin (Zithromax 500mg In Ns Addvantage) 500 mg in 250 mls @ 167 mls/hr IVPB Q24H [facility]; Protocol Last Admin: 07/08/18 09:40 Dose: 167 mls/hr Influenza Virus Vaccine (Flucelvax Quad [id number] Syr) 60 mcg IM .ONCE ONE Stop: 07/09/18 10:01 Insulin Glargine (Lantus) 10 unit SC BID [facility] Last Admin: 07/08/18 09:39 Dose: 10 unit Insulin Human Regular (Novolin R) 0 unit SC ACHS [facility]; Protocol Last Admin: 07/08/18 11:25 Dose: 6 units Metoprolol Tartrate (Lopressor) 50 mg PO BID [facility] Last Admin: 07/08/18 09:39 Dose: 50 mg Minoxidil (Minoxidil) 5 mg PO BID [facility] Last Admin: 07/08/18 09:54 Dose: 5 mg Ondansetron HCl (Zofran Inj) 4 mg IVP Q4H PRN PRN Reason: Nausea/Vomiting Last Admin: 07/08/18 02:48 Dose: 4 mg Pantoprazole Sodium (Protonix Ec Tab) 40 mg PO DAILY [facility] Last Admin: 07/08/18 09:39 Dose: 40 mg Rosuvastatin Calcium (Crestor) 10 mg PO HS [facility] Sevelamer Carbonate (Renvela) 800 mg PO TID [facility] Last Admin: 07/08/18 13:54 Dose: 800 mg Sitagliptin Phosphate (Januvia) 25 mg PO DAILY [facility] Last Admin: 07/08/18 09:39 Dose: 25 mg Tramadol HCl (Ultram) 50 mg PO Q6H PRN PRN Reason: Pain, severe (8-10) Last Admin: 07/08/18 13:56 Dose: 50 mg Vitamin B Complex/Vit C/Folic Acid (Nephro-Tiffanie) 1 tab PO DAILY [facility] Last Admin: 07/08/18 09:39 Dose: 1 tab Results - Vital Signs Recent Vital Signs: Last Vital Signs Temp 98.3 F 07/08/18 07:15 Pulse 93 H 07/08/18 07:15 Resp 20 07/08/18 07:15 BP 118/55 L 07/08/18 07:15 Pulse Ox 95 07/08/18 07:15 - Labs Result Diagrams: 07/08/18 07:36 07/08/18 07:36 Labs: Laboratory Results - last 24 hr 07/07/18 07/07/18 07/07/18 14:48 20:17 21:27 WBC RBC Hgb Hct MCV MCH MCHC RDW Plt Count MPV Sodium Potassium Chloride Carbon Dioxide Anion Gap BUN Creatinine Est GFR ( Amer) Est GFR (Non-Af Amer) POC Glucose (mg/dL) 150 H 217 H Random Glucose Hemoglobin A1c Calcium Iron TIBC % Saturation Lactate Dehydrogenase Vitamin B12 Folate TSH 3rd Generation Hep Bs Antigen Negative 07/07/18 07/08/18 07/08/18 22:38 00:45 06:33 WBC RBC Hgb Hct MCV MCH MCHC RDW Plt Count MPV Sodium Potassium Chloride Carbon Dioxide Anion Gap BUN Creatinine Est GFR ( Amer) Est GFR (Non-Af Amer) POC Glucose (mg/dL) 267 H 427 H* > 500 H* Random Glucose Hemoglobin A1c Calcium Iron TIBC % Saturation Lactate Dehydrogenase Vitamin B12 Folate TSH 3rd Generation Hep Bs Antigen 07/08/18 07/08/18 07/08/18 07:36 07:36 07:36 WBC 6.0 RBC 3.31 L Hgb 9.6 L Hct 31.3 L MCV 94.6 D MCH 29.1 MCHC 30.8 L RDW 21.2 H Plt Count 141 MPV 9.3 Sodium 131 L Potassium 4.6 Chloride 92 L Carbon Dioxide 22 Anion Gap 21 H BUN 31 H Creatinine 5.8 H Est GFR ( Amer) 9 Est GFR (Non-Af Amer) 8 POC Glucose (mg/dL) Random Glucose 591 H* D Hemoglobin A1c Calcium 8.9 Iron TIBC % Saturation Lactate Dehydrogenase 437 Vitamin B12 596 Folate > 20.0 TSH 3rd Generation 0.87 Hep Bs Antigen 07/08/18 07/08/18 07/08/18 07:36 07:36 11:14 WBC RBC Hgb Hct MCV MCH MCHC RDW Plt Count MPV Sodium Potassium Chloride Carbon Dioxide Anion Gap BUN Creatinine Est GFR ( Amer) Est GFR (Non-Af Amer) POC Glucose (mg/dL) > 500 H* Random Glucose Hemoglobin A1c 7.7 H D Calcium Iron 43 TIBC 190 L % Saturation 23 Lactate Dehydrogenase Vitamin B12 Folate TSH 3rd Generation Hep Bs Antigen
--- NOTE | 2018-07-08 15:42 | CP.PCM.CON ---
History of Present Illness - History of Present Illness History of Present Illness: Nephrology Consultation Note: Assessment: Stable pulmonary nodules with lymphadenopathy ? malignancy fluid overload, hypoglycemia Diabetic chronic Kidney Disease (E11.22) Hypertensive Chronic Kidney Disease (I12.0) End stage renal disease (N18.6) dependence on hemodialysis (Z99.2) (TTS) via AVF Anemia (D64.9), Hyperphosphatemia (E83.39), Secondary Hyperparathyroidism (E21.1), HTN (I12.0) Plan: Will plan for HD TTS as ordered.Continue with Nephrovite 1 tab/day. PRBC as needed for anemia. On SARI with HD as last Hb 9.6 Continue with phos binders home dose BP control with meds as ordered. Glycemic control, Dialysis consistent diet Further work up/management as per primary team Dose meds/antibiotics (if needed) for ESRD status. Avoid fleets enema/magnesium based laxatives. diabetic education. pulmonary and heme/onc eval Thanks for allowing me to participate in care of your patient. Will follow patient with you. Please call if any Qs. Dr Fernando Banda Office: [phone] Chief Complaint; low sugar HPI: Pt is a 57 y/o F with hx of ESRD on hemodialysis (TTS) via left AVF, last dialysis friday, chronic anemia, hyperphosphatemia, secondary hyperparathyroidism, Diabetes Mellitus, hypertension, diabetic retinopathy with vitreous hemorrhage and impaired left eye vision presented with complaints of low sugar. She was found to be hypoglycemic and hypoxic, required in-patient hospitalization. Denies chest pain, palpitation, improved shortness of breath, has leg swelling ROS: Constitutional Symptoms: Denies fever. No chills. No Recent Weight Changes Cardiovascular: No chest pain. There is no shortness of breath now. No palpitations. Pulmonary: No shortness of breath or cough. Gastrointestinal: denies abdominal pain No nausea. No vomiting. Denies change in bowel habits. Denies Bleeding has leg swelling. All other negative. Physical Examination: General Appearance: Comfortable, in no acute respiratory distress, co-operative . Vitals reviewed and noted as below Head; Atraumatic, normocephalic ENT: no ulcers no thrush. Tongue is midline. Oropharynx: no rash or ulcers. EYES: Pupils are equal, round and reactive to light accommodation. Eye muscles and extraocular movement intact. Sclera is anicteric. able to read from rt eye Neck; supple no lymphadenopathy, no thyromegaly or bruit Lungs: Normal respiratory rate/effort. Breath sounds bilateral reduced at bases Heart: Normal rate. s1s2 normal. No rub or gallop. Extremities: 2+ edema. No varicose veins. chronic LUE swelling, hx of stenosis above the access s/p angioplasty and stenting Neurological: Patient is alert, awake and oriented to person, place and time. No focal deficit. Strength bilateral appropriate and equal Skin: Warm and dry. Normal turgor. No rash. Palpitation: Normal elasticity for age Abdomen: Abdomen is soft. Bowel sounds +. There is no abdominal tenderness, no guarding/rigidity or organomegaly Psych: limited insight and normal affect/mood MSK: no joint tenderness or swelling. Digits and nails normal, no deformity : kidney or bladder not palpable Access: LUE AVF Labs/imaging reviewed. Past medical history, past surgical history, family history, social history, allergy reviewed and noted as below Family Hx: no hx of CKD. Non contributory Past Patient History - Infectious Disease Hx of Infectious Diseases: None - Tetanus Immunizations Tetanus Immunization: Unknown - Past Medical History & Family History Past Medical History?: Yes - Past Social History Smoking Status: Never Smoked - CARDIAC Hx Hypercholesterolemia: Yes Hx Hypertension: Yes Hx Pacemaker: No Hx Peripheral Edema: Yes (Left arm/Lhand/ble/ none at present time) - PULMONARY Hx Respiratory Disorders: No - NEUROLOGICAL Hx Neurological Disorder: No Hx Paralysis: No - HEENT Hx HEENT Problems: Yes Hx Glaucoma: Yes - RENAL Hx Chronic Kidney Disease: Yes - ENDOCRINE/METABOLIC Hx Endocrine Disorders: Yes Hx Diabetes Mellitus Type 2: Yes - HEMATOLOGICAL/ONCOLOGICAL Hx Anemia: Yes (blood transfusion) Hx Human Immunodeficiency Virus (HIV): No - INTEGUMENTARY Hx Dermatological Problems: No - MUSCULOSKELETAL/RHEUMATOLOGICAL Hx Falls: No Hx Fractures: Yes (left ankle fx and surgery) - GASTROINTESTINAL Hx Pancreatitis: Yes - GENITOURINARY/GYNECOLOGICAL Hx Genitourinary Disorders: Yes Hx Urinary Tract Infection: Yes - PSYCHIATRIC Hx Anxiety: Yes Hx Depression: Yes Hx Substance Use: No - SURGICAL HISTORY Hx Appendectomy: No (Denies.) - ANESTHESIA Hx Anesthesia: Yes Hx Anesthesia Reactions: No Hx Malignant Hyperthermia: No Meds Allergies/Adverse Reactions: Allergies Allergy/AdvReac Type Severity Reaction Status Date / Time No Known Allergies Allergy Verified 12/13/17 12:34 - Medications Medications: Current Medications Heparin Sodium (Porcine) (Heparin) 5,000 units SC Q12 [facility] Last Admin: 07/08/18 10:42 Dose: 5,000 units Ceftriaxone Sodium (Rocephin Iv 1 Gm Duplex) 50 mls @ 100 mls/hr IVPB Q24H [facility]; Protocol Last Admin: 07/08/18 01:03 Dose: 100 mls/hr Azithromycin (Zithromax 500mg In Ns Addvantage) 500 mg in 250 mls @ 167 mls/hr IVPB Q24H [facility]; Protocol Last Admin: 07/08/18 09:40 Dose: 167 mls/hr Influenza Virus Vaccine (Flucelvax Quad 3503-2539 Syr) 60 mcg IM .ONCE ONE Stop: 07/09/18 10:01 Insulin Glargine (Lantus) 10 unit SC BID [facility] Last Admin: 07/08/18 09:39 Dose: 10 unit Insulin Human Regular (Novolin R) 0 unit SC ACHS [facility]; Protocol Last Admin: 07/08/18 11:25 Dose: 6 units Metoprolol Tartrate (Lopressor) 50 mg PO BID [facility] Last Admin: 07/08/18 09:39 Dose: 50 mg Minoxidil (Minoxidil) 5 mg PO BID [facility] Last Admin: 07/08/18 09:54 Dose: 5 mg Nicotine (Nicoderm Cq) 1 patch TD DAILY [facility] Ondansetron HCl (Zofran Inj) 4 mg IVP Q4H PRN PRN Reason: Nausea/Vomiting Last Admin: 07/08/18 02:48 Dose: 4 mg Pantoprazole Sodium (Protonix Ec Tab) 40 mg PO DAILY [facility] Last Admin: 07/08/18 09:39 Dose: 40 mg Rosuvastatin Calcium (Crestor) 10 mg PO HS [facility] Sevelamer Carbonate (Renvela) 800 mg PO TID [facility] Last Admin: 07/08/18 13:54 Dose: 800 mg Sitagliptin Phosphate (Januvia) 25 mg PO DAILY [facility] Last Admin: 07/08/18 09:39 Dose: 25 mg Tramadol HCl (Ultram) 50 mg PO Q6H PRN PRN Reason: Pain, severe (8-10) Last Admin: 07/08/18 13:56 Dose: 50 mg Vitamin B Complex/Vit C/Folic Acid (Nephro-Tiffanie) 1 tab PO DAILY [facility] Last Admin: 07/08/18 09:39 Dose: 1 tab Results - Vital Signs Recent Vital Signs: Last Vital Signs Temp 98.3 F 07/08/18 07:15 Pulse 93 H 07/08/18 07:15 Resp 20 07/08/18 07:15 BP 118/55 L 07/08/18 07:15 Pulse Ox 95 07/08/18 07:15 - Labs Result Diagrams: 07/08/18 07:36 07/08/18 07:36 Labs: Laboratory Results - last 24 hr 07/07/18 07/07/18 07/07/18 20:17 21:27 22:38 WBC RBC Hgb Hct MCV MCH MCHC RDW Plt Count MPV Sodium Potassium Chloride Carbon Dioxide Anion Gap BUN Creatinine Est GFR ( Amer) Est GFR (Non-Af Amer) POC Glucose (mg/dL) 217 H 267 H Random Glucose Hemoglobin A1c Calcium Iron TIBC % Saturation Lactate Dehydrogenase Vitamin B12 Folate TSH 3rd Generation Hep Bs Antigen Negative 07/08/18 07/08/18 07/08/18 00:45 06:33 07:36 WBC 6.0 RBC 3.31 L Hgb 9.6 L Hct 31.3 L MCV 94.6 D MCH 29.1 MCHC 30.8 L RDW 21.2 H Plt Count 141 MPV 9.3 Sodium Potassium Chloride Carbon Dioxide Anion Gap BUN Creatinine Est GFR ( Amer) Est GFR (Non-Af Amer) POC Glucose (mg/dL) 427 H* > 500 H* Random Glucose Hemoglobin A1c Calcium Iron TIBC % Saturation Lactate Dehydrogenase Vitamin B12 Folate TSH 3rd Generation Hep Bs Antigen 07/08/18 07/08/18 07/08/18 07:36 07:36 07:36 WBC RBC Hgb Hct MCV MCH MCHC RDW Plt Count MPV Sodium 131 L Potassium 4.6 Chloride 92 L Carbon Dioxide 22 Anion Gap 21 H BUN 31 H Creatinine 5.8 H Est GFR ( Amer) 9 Est GFR (Non-Af Amer) 8 POC Glucose (mg/dL) Random Glucose 591 H* D Hemoglobin A1c Calcium 8.9 Iron 43 TIBC 190 L % Saturation 23 Lactate Dehydrogenase 437 Vitamin B12 596 Folate > 20.0 TSH 3rd Generation 0.87 Hep Bs Antigen 01/16/19 01/16/19 07:36 11:14 WBC RBC Hgb Hct MCV MCH MCHC RDW Plt Count MPV Sodium Potassium Chloride Carbon Dioxide Anion Gap BUN Creatinine Est GFR ( Amer) Est GFR (Non-Af Amer) POC Glucose (mg/dL) > 500 H* Random Glucose Hemoglobin A1c 7.7 H D Calcium Iron TIBC % Saturation Lactate Dehydrogenase Vitamin B12 Folate TSH 3rd Generation Hep Bs Antigen
[2018-07-09] MEDS: cefTRIAXone IV 1 gm in Dextros 50 ML IVPB SCH (00:46)
--- NOTE | 2018-07-09 05:24 | CON ---
DATE: 07/08/2018 INFECTIOUS DISEASE CONSULTATION REQUESTED BY: July Dunne MD REASON FOR CONSULTATION: Hypoxemia,hypoglycemia, and pneumonia. HISTORY OF PRESENT ILLNESS: The patient is a 57-year-old female with past medical history of renal failure, on hemodialysis on Friday, and Friday who was sent from dialysis center because she was found to be hypoglycemic. The patient is also complaining of some swelling and pain on the left side of her abdomen. The patient was recently evaluated at [facility] last week, and she was told she was hypoxemic and leading to be on home oxygen. The patient presently found on admission to be hypoxemic and placed on oxygen. A CAT scan of the chest was performed which was negative for pulmonary embolism and incidentally found to have pulmonary nodules with left-sided adenopathy. Also, there is question of bilateral consolidations especially atelectasis versus left-sided pneumonia. Metastatic disease could not be ruled out. See full report of CT scan. The patient presently denies any cough or expectoration. She denies any fever, chills, nausea, vomiting or diarrhea. The patient also denies any weight loss. Infectious disease consultation was requested for possible pneumonia, questionable metastatic disease with pulmonary nodules. PAST MEDICAL HISTORY: As above, history of diabetes mellitus, anemia, anxiety, depression, fracture of the left ankle and surgery, hypertension, hypercholesterolemia, pancreatitis, peripheral edema, end-stage renal disease, on hemodialysis on Friday, and Saturdays. The patient has a left AV fistula which has a positive bruit. FAMILY HISTORY: Unremarkable, noncontributory. SOCIAL HISTORY: The patient states she has been smoking for last 39 years, six unfiltered cigarettes per day. Has never tried to stop it. Denies any substance abuse or alcohol use. REVIEW OF SYSTEMS: GENERAL: The patient presently denies any cough or expectoration. Denies any hemoptysis. Denies any chest pain or palpitations. GASTROINTESTINAL: Unremarkable. GENITOURINARY: Unremarkable. CENTRAL NERVOUS SYSTEM: Awake, alert. Denies any headache or sinus problems. Rest of the review of systems is unremarkable. ALLERGIES: NO KNOWN ALLERGIES. PHYSICAL EXAMINATION: GENERAL: The patient is awake, alert. VITAL SIGNS: Temperature 96.8, pulse 73, respirations 18, blood pressure 157/72, pulse ox was 94% on 2 L of oxygen. HEENT: Normocephalic and atraumatic. Pupils are equal and reactive to light and accommodation. Extraocular movements are full. Fundus not well visualized. Conjunctivae clear. NECK: Appears to be supple. No carotic bruit. No JVD noted. No thyromegaly. No lymphadenopathy appreciated. LUNGS: Bilateral expansion symmetrical. Two basilar rales, left sided noted. Diminished breath sounds on the right base. Few crackles mainly on the right and left side. HEART: S1 and S2 are regular. No murmur or gallop. ABDOMEN: Soft, nontender. No mass is palpable. EXTREMITIES: No edema. No cyanosis. No clubbing. CENTRAL NERVOUS SYSTEM: Awake, alert. Moves all extremities. No focal deficits. LABORATORY DATA: Labs noted. Presently, WBC is 6, H and H of 9.6 and 31.3, platelets 141. Creatinine 5.8, BUN of 31. Liver function tests are normal. Alkaline phosphatase is 183. LDH normal. Blood sugar presently more than 500. Hemoglobin A1c was . CT chest reviewed, findings noted. IMPRESSION: 1. Pulmonary nodules with lymphadenopathy. Rule out malignancy. 2. Pneumonia versus atelectasis, left lower lobe. 3. End-stage renal disease, on hemodialysis on Friday, and Friday. 4. Hypoglycemia. 5. Diabetes mellitus. 6. Hypertension. PLAN: Lutz cultures. We will get sed rate. Atypical titers. Start IV ceftriaxone 1 g once a day daily. Add Zithromax 500 mg IV piggyback once a day daily. Followup titers, sputum gram-stain and culture with possible hematology evaluation in progress and also pulmonary evaluation. We will follow along with you. Thank you very much for allowing me to participate in the care of your patient. We will follow along with you. Brenton Jaquez MD
[2018-07-09 07:47] LABS: BASO # 0.1 K/uL (0.0-0.2); EOS # 0.2 K/uL (0.0-0.7); EOS % 3.2 % (0.0-4.0); HEMOGLOBIN 9.7 g/dL (11.0-16.0); LYMPH # 0.9 K/uL (1.0-4.3); LYMPH % 14.8 % (20.0-40.0); MEAN CORPUSCULAR HEMOGLOBIN 29.9 pg (27.0-31.0); MEAN CORPUSCULAR HGB CONC 32.7 g/dL (33.0-37.0); MEAN PLATELET VOLUME 9.2 fL (7.2-11.7); MONO # 0.5 K/uL (0.0-0.8); MONO % 8.2 % (0.0-10.0); NEUT # 4.5 K/uL (1.8-7.0); NEUT % 72.8 % (50.0-75.0); RBC 3.26 Mil/uL (3.80-5.20); RED CELL DISTRIBUTION WIDTH 20.3 % (11.5-14.5); WHITE BLOOD COUNT 6.2 K/uL (4.8-10.8)
[2018-07-09 07:55] LABS: MEAN CELL VOLUME 91.7 fL (81.0-99.0)
[2018-07-09 08:15] LABS: HEPATITIS B SURFACE AG Negative (NEGATIVE)
[2018-07-09 08:18] LABS: ALB/GLOB RATIO 1.4 (1.0-2.1); ALBUMIN 4.1 g/dL (3.5-5.0); CALCIUM 8.9 mg/dl (8.6-10.4)
[2018-07-09] MEDS: (Novolin R) Insulin Human Regular 100 units/ml vial SC SCH ×7 (08:29→22:06)
[2018-07-09 09:06] LABS: HEPATITIS A IGM NEGATIVE (NEGATIVE); HEPATITIS B CORE AB NEGATIVE (NEGATIVE)
[2018-07-09 09:18] LABS: HEPATITIS C ANTIBODY NEGATIVE (NEGATIVE)
[2018-07-09] MEDS: Pantoprazole 40 mg EC Tab PO SCH (09:43)
[2018-07-09] MEDS: (Lantus) Insulin Glargine, Recombinant SC SCH ×2 (09:44→18:12)
[2018-07-09] MEDS: Azithromycin 500mg/250ML NS 500 MG/250 ML BAG IVPB SCH (09:55)
[2018-07-09] MEDS ORDERED: Influenza Vaccine 60 mcg/0.5 mL SYR (4YR UP) IM ONE (10:00)
[2018-07-09] MEDS: Multivitamin Vitamin B Complex (Nephro-Vite) Tab PO SCH (10:24)
--- NOTE | 2018-07-09 15:21 | CP.PCM.PN ---
Subjective - Date & Time of Evaluation Date of Evaluation: 07/09/18 Time of Evaluation: 15:20 - Subjective Subjective: Nephrology Consultation Note: Assessment: Stable pulmonary nodules with lymphadenopathy ? malignancy fluid overload, hypoglycemia Diabetic chronic Kidney Disease (E11.22) Hypertensive Chronic Kidney Disease (I12.0) End stage renal disease (N18.6) dependence on hemodialysis (Z99.2) (TTS) via AVF Anemia (D64.9), Hyperphosphatemia (E83.39), Secondary Hyperparathyroidism (E21.1), HTN (I12.0) Plan: Will plan for HD TTS as ordered.Continue with Nephrovite 1 tab/day. PRBC as needed for anemia. not On SARI with HD as last Hb 9.6 but with concerns of malignancy Continue with phos binders home dose BP control with meds as ordered. Glycemic control, Dialysis consistent diet Further work up/management as per primary team Dose meds/antibiotics (if needed) for ESRD status. Avoid fleets enema/magnesium based laxatives. diabetic education. pulmonary and heme/onc eval Thanks for allowing me to participate in care of your patient. Will follow patient with you. Please call if any Qs. Dr Fernando Banda Office: [phone] Chief Complaint; low sugar HPI: Pt is a 57 y/o F with hx of ESRD on hemodialysis (TTS) via left AVF, last dialysis friday, chronic anemia, hyperphosphatemia, secondary hyperparathyroi dism, Diabetes Mellitus, hypertension, diabetic retinopathy with vitreous hemorrhage and impaired left eye vision presented with complaints of low sugar. She was found to be hypoglycemic and hypoxic, required in-patient hospitalization. Denies chest pain, palpitation, improved shortness of breath, has leg swelling ROS: Constitutional Symptoms: Denies fever. No chills. No Recent Weight Changes Cardiovascular: No chest pain. There is no shortness of breath now. No palpitations. Pulmonary: No shortness of breath or cough. Gastrointestinal: denies abdominal pain No nausea. No vomiting. Denies change in bowel habits. Denies Bleeding has leg swelling. All other negative. Physical Examination: General Appearance: Comfortable, in no acute respiratory distress, co-operative . Vitals reviewed and noted as below Head; Atraumatic, normocephalic ENT: no ulcers no thrush. Tongue is midline. Oropharynx: no rash or ulcers. EYES: Pupils are equal, round and reactive to light accommodation. Eye muscles and extraocular movement intact. Sclera is anicteric. able to read from rt eye Neck; supple no lymphadenopathy, no thyromegaly or bruit Lungs: Normal respiratory rate/effort. Breath sounds bilateral reduced at bases Heart: Normal rate. s1s2 normal. No rub or gallop. Extremities: 2+ edema. No varicose veins. chronic LUE swelling, hx of stenosis above the access s/p angioplasty and stenting Neurological: Patient is alert, awake and oriented to person, place and time. No focal deficit. Strength bilateral appropriate and equal Skin: Warm and dry. Normal turgor. No rash. Palpitation: Normal elasticity for age Abdomen: Abdomen is soft. Bowel sounds +. There is no abdominal tenderness, no guarding/rigidity or organomegaly Psych: limited insight and normal affect/mood MSK: no joint tenderness or swelling. Digits and nails normal, no deformity : kidney or bladder not palpable Access: LUE AVF Labs/imaging reviewed. Past medical history, past surgical history, family history, social history, allergy reviewed and noted as below Family Hx: no hx of CKD. Non contributory Objective - Vital Signs/Intake and Output Vital Signs (last 24 hours): Temp Pulse Resp BP Pulse Ox 97.8 F 78 20 131/58 L 100 07/09/18 07:15 07/09/18 12:45 07/09/18 07:15 07/09/18 07:15 07/09/18 07:15 Intake and Output: 07/09/18 07/09/18 06:59 18:59 Intake Total 180 Output Total 0 Balance 180 - Medications Medications: Current Medications Heparin Sodium (Porcine) (Heparin) 5,000 units SC Q12 [facility] Last Admin: 07/09/18 09:43 Dose: 5,000 units Ceftriaxone Sodium (Rocephin Iv 1 Gm Duplex) 50 mls @ 100 mls/hr IVPB Q24H [facility]; Protocol Last Admin: 07/09/18 00:46 Dose: 100 mls/hr Azithromycin (Zithromax 500mg In Ns Addvantage) 500 mg in 250 mls @ 167 mls/hr IVPB Q24H [facility]; Protocol Last Admin: 07/09/18 09:55 Dose: 167 mls/hr Insulin Glargine (Lantus) 10 unit SC BID [facility] Last Admin: 07/09/18 09:44 Dose: 10 unit Insulin Human Regular (Novolin R) 0 unit SC ACHS [facility]; Protocol Last Admin: 07/09/18 12:13 Dose: 2 units Insulin Human Regular (Novolin R) 4 unit SC TIDCC [facility] Last Admin: 07/09/18 12:14 Dose: 4 unit Metoprolol Tartrate (Lopressor) 50 mg PO BID [facility] Last Admin: 07/09/18 09:58 Dose: Not Given Minoxidil (Minoxidil) 5 mg PO BID [facility] Last Admin: 07/09/18 09:58 Dose: Not Given Nicotine (Nicoderm Cq) 1 patch TD DAILY [facility] Last Admin: 07/09/18 10:24 Dose: 1 patch Ondansetron HCl (Zofran Inj) 4 mg IVP Q4H PRN PRN Reason: Nausea/Vomiting Last Admin: 07/09/18 09:51 Dose: 4 mg Pantoprazole Sodium (Protonix Ec Tab) 40 mg PO DAILY [facility] Last Admin: 07/09/18 09:43 Dose: 40 mg Rosuvastatin Calcium (Crestor) 10 mg PO HS [facility] Last Admin: 07/08/18 22:13 Dose: 10 mg Sevelamer Carbonate (Renvela) 800 mg PO TID [facility] Last Admin: 07/09/18 13:52 Dose: 800 mg Sitagliptin Phosphate (Januvia) 25 mg PO DAILY [facility] Last Admin: 07/09/18 09:43 Dose: 25 mg Tramadol HCl (Ultram) 50 mg PO Q6H PRN PRN Reason: Pain, severe (8-10) Last Admin: 07/08/18 13:56 Dose: 50 mg Vitamin B Complex/Vit C/Folic Acid (Nephro-Tiffanie) 1 tab PO DAILY [facility] Last Admin: 07/09/18 10:24 Dose: 1 tab - Labs Labs: 07/09/18 07:23 07/09/18 07:23 PT 11.5 SECONDS (9.7-12.2) 07/07/18 13:25 INR 1.1 07/07/18 13:25 APTT 35 SECONDS (21-34) H 07/07/18 13:25
--- NOTE | 2018-07-09 17:39 | PN ---
DATE: 07/08/2018 SUBJECTIVE: The patient was seen and examined at the bedside on 07/08/2018, was sleepy but arousable, moving all four extremities, no focal deficits. No headaches, no dizziness, no chest pains, no palpitations. PHYSICAL EXAMINATION: VITAL SIGNS: Temperature 98.3, pulse 93, respiratory rate 20, blood pressure 118/55, pulse oximetry 95%. HEENT: Head atraumatic, normocephalic. Eyes: PERRLA. Extraocular muscles intact. Conjunctivae clear. Nose patent. Mucosal membranes moist. NECK: Supple. No carotid bruit. No JVD or thyromegaly. CHEST: Bilaterally symmetrical. HEART: S1 and S2, positive rub. LUNGS: Clear to auscultation. ABDOMEN: Soft. Bowel sounds present. No organomegaly. EXTREMITIES: No edema. No cyanosis. NEUROLOGICAL: The patient is sleepy but arousable, following simple commands. LABORATORY DATA: White blood cell 6, hemoglobin 9.6, hematocrit 31.3, platelet count 41. Sodium 141, potassium 4.6, BUN 31, creatinine 5.6, glucose 519. ASSESSMENT AND PLAN: Ms. Shelley Gamez is a 57-year-old lady with anemia, hyponatremia, renal insufficiency on hemodialysis, diabetes mellitus uncontrolled, history of endstage renal disease on hemodialysis, episodes of hypoglycemia, history of anxiety/depression, hypertension, hypercholesterolemia, pancreatitis, edema, repair of left ankle fracture, has pulmonary nodules found on CT of chest incidentally; furniture inspector is on the case; maybe metastatic malignancy. Hematology/Oncology is on the case also. Meanwhile may continue present treatment. Infectious Disease is on the case. gastrointestinal prophylaxis. Repeat labs. Will follow up. July Dunne MD
--- NOTE | 2018-07-09 17:51 | CP.PCM.PN ---
Subjective - Date & Time of Evaluation Date of Evaluation: 07/09/18 Time of Evaluation: 10:00 - Subjective Subjective: Ms. Gamez was seen and examined at bedside this morning. She is resting comfortably in bed in no acute distress. She states that her breathing has improved since yesterday and that she feels better today. Currently denies any fever, chills, chest pain, n/v. No other complaints noted today. Exam: Gen: No acute distress. AAOx3 Card: RRRR, no murmurs, rubs or gallops. Lungs: Symmetric chest excursions. No tachypnea or respiratory distress noted. Clear to auscultation. No wheezing, rales or rhonchi heard. Abd: Soft, non-distended. No tenderness to palpation. A&P 1. Multiple lung nodules - CT chest (07/07): Medistinal and left axillary lymphedenapthy noted with few pulmonary nodules present - Concern for malignancy. Patient to proceed forward with lung biopsy by IR Objective - Vital Signs/Intake and Output Vital Signs (last 24 hours): Temp Pulse Resp BP Pulse Ox 97.8 F 78 20 131/58 L 100 07/09/18 07:15 07/09/18 12:45 07/09/18 07:15 07/09/18 07:15 07/09/18 07:15 Intake and Output: 07/09/18 07/09/18 06:59 18:59 Intake Total 180 Output Total 0 Balance 180 - Medications Medications: Current Medications Heparin Sodium (Porcine) (Heparin) 5,000 units SC Q12 [facility] Last Admin: 07/09/18 09:43 Dose: 5,000 units Ceftriaxone Sodium (Rocephin Iv 1 Gm Duplex) 50 mls @ 100 mls/hr IVPB Q24H [facility]; Protocol Last Admin: 07/09/18 00:46 Dose: 100 mls/hr Azithromycin (Zithromax 500mg In Ns Addvantage) 500 mg in 250 mls @ 167 mls/hr IVPB Q24H [facility]; Protocol Last Admin: 07/09/18 09:55 Dose: 167 mls/hr Insulin Glargine (Lantus) 10 unit SC BID [facility] Last Admin: 07/09/18 09:44 Dose: 10 unit Insulin Human Regular (Novolin R) 0 unit SC ACHS [facility]; Protocol Last Admin: 07/09/18 12:13 Dose: 2 units Insulin Human Regular (Novolin R) 4 unit SC TIDCC [facility] Last Admin: 07/09/18 12:14 Dose: 4 unit Metoprolol Tartrate (Lopressor) 50 mg PO BID [facility] Last Admin: 07/09/18 09:58 Dose: Not Given Minoxidil (Minoxidil) 5 mg PO BID [facility] Last Admin: 07/09/18 09:58 Dose: Not Given Nicotine (Nicoderm Cq) 1 patch TD DAILY [facility] Last Admin: 07/09/18 10:24 Dose: 1 patch Ondansetron HCl (Zofran Inj) 4 mg IVP Q4H PRN PRN Reason: Nausea/Vomiting Last Admin: 07/09/18 09:51 Dose: 4 mg Pantoprazole Sodium (Protonix Ec Tab) 40 mg PO DAILY [facility] Last Admin: 07/09/18 09:43 Dose: 40 mg Rosuvastatin Calcium (Crestor) 10 mg PO HS [facility] Last Admin: 07/08/18 22:13 Dose: 10 mg Sevelamer Carbonate (Renvela) 800 mg PO TID [facility] Last Admin: 07/09/18 13:52 Dose: 800 mg Sitagliptin Phosphate (Januvia) 25 mg PO DAILY [facility] Last Admin: 07/09/18 09:43 Dose: 25 mg Tramadol HCl (Ultram) 50 mg PO Q6H PRN PRN Reason: Pain, severe (8-10) Last Admin: 07/08/18 13:56 Dose: 50 mg Vitamin B Complex/Vit C/Folic Acid (Nephro-Tiffanie) 1 tab PO DAILY [facility] Last Admin: 07/09/18 10:24 Dose: 1 tab - Labs Labs: 07/09/18 07:23 07/09/18 07:23 PT 11.5 SECONDS (9.7-12.2) 07/07/18 13:25 INR 1.1 07/07/18 13:25 APTT 35 SECONDS (21-34) H 07/07/18 13:25
--- NOTE | 2018-07-09 22:44 | CP.PCM.PN ---
Subjective - Date & Time of Evaluation Date of Evaluation: 07/09/18 Time of Evaluation: 22:44 - Subjective Subjective: AFEBRILE VSS IN NO DISTRESS . STATES BREATHING BETTER THAN YESTERDAY. ON IV ABX, O2 SUPPLEMENT VIA NASAL CANNULA Objective - Vital Signs/Intake and Output Vital Signs (last 24 hours): Temp Pulse Resp BP Pulse Ox 98 F 82 16 164/87 H 98 07/09/18 21:20 07/09/18 21:20 07/09/18 21:20 07/09/18 22:00 07/09/18 21:20 - Medications Medications: Current Medications Heparin Sodium (Porcine) (Heparin) 5,000 units SC Q12 [facility] Last Admin: 07/09/18 22:03 Dose: 5,000 units Ceftriaxone Sodium (Rocephin Iv 1 Gm Duplex) 50 mls @ 100 mls/hr IVPB Q24H [facility]; Protocol Last Admin: 07/09/18 00:46 Dose: 100 mls/hr Azithromycin (Zithromax 500mg In Ns Addvantage) 500 mg in 250 mls @ 167 mls/hr IVPB Q24H [facility]; Protocol Last Admin: 07/09/18 09:55 Dose: 167 mls/hr Insulin Glargine (Lantus) 10 unit SC BID [facility] Last Admin: 07/09/18 18:12 Dose: Not Given Insulin Human Regular (Novolin R) 0 unit SC ACHS [facility]; Protocol Last Admin: 07/09/18 22:06 Dose: Not Given Insulin Human Regular (Novolin R) 4 unit SC TIDCC [facility] Last Admin: 07/09/18 18:12 Dose: Not Given Metoprolol Tartrate (Lopressor) 50 mg PO BID [facility] Last Admin: 07/09/18 22:02 Dose: 50 mg Minoxidil (Minoxidil) 5 mg PO BID [facility] Last Admin: 07/09/18 18:13 Dose: Not Given Nicotine (Nicoderm Cq) 1 patch TD DAILY [facility] Last Admin: 07/09/18 10:24 Dose: 1 patch Ondansetron HCl (Zofran Inj) 4 mg IVP Q4H PRN PRN Reason: Nausea/Vomiting Last Admin: 07/09/18 18:00 Dose: 4 mg Pantoprazole Sodium (Protonix Ec Tab) 40 mg PO DAILY [facility] Last Admin: 07/09/18 09:43 Dose: 40 mg Rosuvastatin Calcium (Crestor) 10 mg PO HS [facility] Last Admin: 07/09/18 22:01 Dose: 10 mg Sevelamer Carbonate (Renvela) 800 mg PO TID [facility] Last Admin: 07/09/18 18:13 Dose: Not Given Sitagliptin Phosphate (Januvia) 25 mg PO DAILY [facility] Last Admin: 07/09/18 09:43 Dose: 25 mg Tramadol HCl (Ultram) 50 mg PO Q6H PRN PRN Reason: Pain, severe (8-10) Last Admin: 07/09/18 22:01 Dose: 50 mg Vitamin B Complex/Vit C/Folic Acid (Nephro-Tiffanie) 1 tab PO DAILY [facility] Last Admin: 07/09/18 10:24 Dose: 1 tab - Labs Labs: 07/09/18 07:23 07/09/18 07:23 PT 11.5 SECONDS (9.7-12.2) 07/07/18 13:25 INR 1.1 07/07/18 13:25 APTT 35 SECONDS (21-34) H 07/07/18 13:25 - Constitutional Appears: No Acute Distress - Head Exam Head Exam: NORMAL INSPECTION - Eye Exam Eye Exam: EOMI, PERRL - ENT Exam ENT Exam: Mucous Membranes Moist, Normal Oropharynx - Neck Exam Neck Exam: Lymphadenopathy, Normal Inspection. absent: Thyromegaly - Respiratory Exam Respiratory Exam: Rales (Lt SIDED BASE.) - Cardiovascular Exam Cardiovascular Exam: Tachycardia, REGULAR RHYTHM, +S1, +S2 - GI/Abdominal Exam GI & Abdominal Exam: Soft, Normal Bowel Sounds - Extremities Exam Extremities Exam: Normal Capillary Refill. absent: Calf Tenderness, Pedal Edema - Neurological Exam Neurological Exam: Awake, CN II-XII Intact, Oriented x3, Reflexes Normal - Psychiatric Exam Psychiatric exam: Normal Mood - Skin Skin Exam: Normal Color, Warm Assessment and Plan - Assessment and Plan (Free Text) Assessment: IMPRESSION; PULMONARY NODULES WITH LYMPHADENOPATHY ? R/O MALIGNANCY LUNG VS METASTATIC DISEASE HYPOXEMIA R/O PNEUMONIA LLL -VE PE BY CT ANGIO. ESRD ON HD TTS. HYPOGLYCEMIA DIABETES MELLITUS. HYPERTENSION. PLAN; CONTINUE iv ROCEPHIN 1 G ONCE A DAY 07/08/17 ADD IV zITHROMAX 500 MG ONCE A DAY. 07/08/18. PT FOR BX LN /LUNG -AXILLARY BY IR TO SCHEDULE HEMATOLOGY ONCOLOGY W/U IN PROGRESS.
[2018-07-10] MEDS: cefTRIAXone IV 1 gm in Dextros 50 ML IVPB SCH (01:26)
[2018-07-10] MEDS: (Novolin R) Insulin Human Regular 100 units/ml vial SC SCH ×7 (09:43→21:34)
[2018-07-10] MEDS: Multivitamin Vitamin B Complex (Nephro-Vite) Tab PO SCH (09:48)
[2018-07-10] MEDS: Pantoprazole 40 mg EC Tab PO SCH (09:49)
[2018-07-10] MEDS: Azithromycin 500mg/250ML NS 500 MG/250 ML BAG IVPB SCH (10:10)
[2018-07-10] MEDS: (Lantus) Insulin Glargine, Recombinant SC SCH ×2 (10:12→17:29)
[2018-07-10] MEDS ORDERED: Lidocaine Hydrochloride 0 ML INJ ONE (13:11)
--- NOTE | 2018-07-10 13:19 | CP.PCM.PN ---
Subjective - Date & Time of Evaluation Date of Evaluation: 07/10/18 Time of Evaluation: 09:20 - Subjective Subjective: Subjective: Patient seen and examined at bedside. She has no complaints and overall feels well. Patient asking when she will be able to go home. Informed her that lung biopsy needs to be performed first. She is able to tolerate PO and states that breathing treatments have been helping. At this time, she denies any chest pain, problems breathing, nausea, vomiting, fatigue, or loss of appetite. Objective: General: No acute distress HEENT: Enlarged left pre-auricular lymph node that is nontender Heart: RRR, S1, S2 Lungs: CTA b/l Abdomen: soft, nontender, nondistended Assessment & Plan: 1. Multiple lung nodules - Concern for malignancy. Lung biopsy scheduled as per IR. Ideally patient should have biopsy done during this hospital admission but may be done as outpatient procedure if she prefers. Objective - Vital Signs/Intake and Output Vital Signs (last 24 hours): Temp Pulse Resp BP Pulse Ox 98.2 F 78 20 152/65 H 93 L 07/10/18 07:00 07/10/18 08:02 07/10/18 07:00 07/10/18 07:00 07/10/18 07:00 Intake and Output: 07/10/18 07/10/18 06:59 18:59 Intake Total 160 Balance 160 - Medications Medications: Current Medications Celecoxib (Celebrex) 200 mg PO BID [facility] Last Admin: 07/10/18 09:50 Dose: 200 mg Heparin Sodium (Porcine) (Heparin) 5,000 units SC Q12 [facility] Last Admin: 07/10/18 09:50 Dose: 5,000 units Ceftriaxone Sodium (Rocephin Iv 1 Gm Duplex) 50 mls @ 100 mls/hr IVPB Q24H [facility]; Protocol Last Admin: 07/10/18 01:26 Dose: 100 mls/hr Azithromycin (Zithromax 500mg In Ns Addvantage) 500 mg in 250 mls @ 167 mls/hr IVPB Q24H [facility]; Protocol Last Admin: 07/10/18 10:10 Dose: 167 mls/hr Insulin Glargine (Lantus) 10 unit SC BID [facility] Last Admin: 07/10/18 10:12 Dose: 10 unit Insulin Human Regular (Novolin R) 0 unit SC ACHS [facility]; Protocol Last Admin: 07/10/18 12:56 Dose: Not Given Insulin Human Regular (Novolin R) 4 unit SC TIDCC [facility] Last Admin: 07/10/18 10:13 Dose: 4 unit Metoprolol Tartrate (Lopressor) 50 mg PO BID [facility] Last Admin: 07/10/18 09:49 Dose: 50 mg Minoxidil (Minoxidil) 5 mg PO BID [facility] Last Admin: 07/10/18 09:48 Dose: 5 mg Nicotine (Nicoderm Cq) 1 patch TD DAILY [facility] Last Admin: 07/10/18 10:11 Dose: 1 patch Ondansetron HCl (Zofran Inj) 4 mg IVP Q4H PRN PRN Reason: Nausea/Vomiting Last Admin: 07/10/18 10:52 Dose: 4 mg Pantoprazole Sodium (Protonix Ec Tab) 40 mg PO DAILY [facility] Last Admin: 07/10/18 09:49 Dose: 40 mg Rosuvastatin Calcium (Crestor) 10 mg PO HS [facility] Last Admin: 07/09/18 22:01 Dose: 10 mg Sevelamer Carbonate (Renvela) 800 mg PO TID [facility] Last Admin: 07/10/18 09:48 Dose: 800 mg Sitagliptin Phosphate (Januvia) 25 mg PO DAILY [facility] Last Admin: 07/10/18 09:49 Dose: 25 mg Tramadol HCl (Ultram) 50 mg PO Q6H PRN PRN Reason: Pain, severe (8-10) Last Admin: 07/10/18 05:04 Dose: 50 mg Vitamin B Complex/Vit C/Folic Acid (Nephro-Tiffanie) 1 tab PO DAILY [facility] Last Admin: 07/10/18 09:48 Dose: 1 tab - Labs Labs: 07/09/18 07:23 07/09/18 07:23 PT 11.5 SECONDS (9.7-12.2) 07/07/18 13:25 INR 1.1 07/07/18 13:25 APTT 35 SECONDS (21-34) H 07/07/18 13:25
--- NOTE | 2018-07-10 13:22 | CP.PCM.PN ---
Subjective - Date & Time of Evaluation Date of Evaluation: 07/10/18 Time of Evaluation: 13:22 - Subjective Subjective: Nephrology Consultation Note: Assessment: Stable pulmonary nodules with lymphadenopathy ? malignancy fluid overload, hypoglycemia Diabetic chronic Kidney Disease (E11.22) Hypertensive Chronic Kidney Disease (I12.0) End stage renal disease (N18.6) dependence on hemodialysis (Z99.2) (TTS) via AVF Anemia (D64.9), Hyperphosphatemia (E83.39), Secondary Hyperparathyroidism (E21.1), HTN (I12.0) Plan: Will plan for HD TTS as ordered.Continue with Nephrovite 1 tab/day. PRBC as needed for anemia. not On SARI with HD as last Hb 9.6 but with concerns of malignancy Continue with phos binders home dose BP control with meds as ordered. Glycemic control, Dialysis consistent diet Further work up/management as per primary team Dose meds/antibiotics (if needed) for ESRD status. Avoid fleets enema/magnesium based laxatives. diabetic education. pulmonary and heme/onc eval planned for IR guided biopsy Thanks for allowing me to participate in care of your patient. Will follow patient with you. Please call if any Qs. Dr Fernando Banda Office: [phone] Chief Complaint; low sugar HPI: Pt is a 57 y/o F with hx of ESRD on hemodialysis (TTS) via left AVF, last dialysis friday, chronic anemia, hyperphosphatemia, secondary hyperparathyroidism, Diabetes Mellitus, hypertension, diabetic retinopathy with vitreous hemorrhage and impaired left eye vision presented with complaints of low sugar. She was found to be hypoglycemic and hypoxic, required in-patient hospitalization. Denies chest pain, palpitation, improved shortness of breath, has leg swelling ROS: Constitutional Symptoms: Denies fever. No chills. No Recent Weight Changes Cardiovascular: No chest pain. There is no shortness of breath now. No palpitations. Pulmonary: No shortness of breath or cough. Gastrointestinal: denies abdominal pain No nausea. No vomiting. Denies change in bowel habits. Denies Bleeding has leg swelling. All other negative. Physical Examination: General Appearance: Comfortable, in no acute respiratory distress, co-operative . Vitals reviewed and noted as below Head; Atraumatic, normocephalic ENT: no ulcers no thrush. Tongue is midline. Oropharynx: no rash or ulcers. EYES: Pupils are equal, round and reactive to light accommodation. Eye muscles and extraocular movement intact. Sclera is anicteric. able to read from rt eye Neck; supple no lymphadenopathy, no thyromegaly or bruit Lungs: Normal respiratory rate/effort. Breath sounds bilateral reduced at bases Heart: Normal rate. s1s2 normal. No rub or gallop. Extremities: 2+ edema. No varicose veins. chronic LUE swelling, hx of stenosis above the access s/p angioplasty and stenting Neurological: Patient is alert, awake and oriented to person, place and time. No focal deficit. Strength bilateral appropriate and equal Skin: Warm and dry. Normal turgor. No rash. Palpitation: Normal elasticity for age Abdomen: Abdomen is soft. Bowel sounds +. There is no abdominal tenderness, no guarding/rigidity or organomegaly Psych: limited insight and normal affect/mood MSK: no joint tenderness or swelling. Digits and nails normal, no deformity : kidney or bladder not palpable Access: LUE AVF Labs/imaging reviewed. Past medical history, past surgical history, family history, social history, allergy reviewed and noted as below Family Hx: no hx of CKD. Non contributory Objective - Vital Signs/Intake and Output Vital Signs (last 24 hours): Temp Pulse Resp BP Pulse Ox 98.2 F 78 20 152/65 H 93 L 07/10/18 07:00 07/10/18 08:02 07/10/18 07:00 07/10/18 07:00 07/10/18 07:00 Intake and Output: 07/10/18 07/10/18 06:59 18:59 Intake Total 160 Balance 160 - Medications Medications: Current Medications Celecoxib (Celebrex) 200 mg PO BID [facility] Last Admin: 07/10/18 09:50 Dose: 200 mg Heparin Sodium (Porcine) (Heparin) 5,000 units SC Q12 [facility] Last Admin: 07/10/18 09:50 Dose: 5,000 units Ceftriaxone Sodium (Rocephin Iv 1 Gm Duplex) 50 mls @ 100 mls/hr IVPB Q24H [facility]; Protocol Last Admin: 07/10/18 01:26 Dose: 100 mls/hr Azithromycin (Zithromax 500mg In Ns Addvantage) 500 mg in 250 mls @ 167 mls/hr IVPB Q24H [facility]; Protocol Last Admin: 07/10/18 10:10 Dose: 167 mls/hr Insulin Glargine (Lantus) 10 unit SC BID [facility] Last Admin: 07/10/18 10:12 Dose: 10 unit Insulin Human Regular (Novolin R) 0 unit SC ACHS [facility]; Protocol Last Admin: 07/10/18 12:56 Dose: Not Given Insulin Human Regular (Novolin R) 4 unit SC TIDCC [facility] Last Admin: 07/10/18 10:13 Dose: 4 unit Metoprolol Tartrate (Lopressor) 50 mg PO BID [facility] Last Admin: 07/10/18 09:49 Dose: 50 mg Minoxidil (Minoxidil) 5 mg PO BID [facility] Last Admin: 07/10/18 09:48 Dose: 5 mg Nicotine (Nicoderm Cq) 1 patch TD DAILY [facility] Last Admin: 07/10/18 10:11 Dose: 1 patch Ondansetron HCl (Zofran Inj) 4 mg IVP Q4H PRN PRN Reason: Nausea/Vomiting Last Admin: 07/10/18 10:52 Dose: 4 mg Pantoprazole Sodium (Protonix Ec Tab) 40 mg PO DAILY [facility] Last Admin: 07/10/18 09:49 Dose: 40 mg Rosuvastatin Calcium (Crestor) 10 mg PO HS [facility] Last Admin: 07/09/18 22:01 Dose: 10 mg Sevelamer Carbonate (Renvela) 800 mg PO TID [facility] Last Admin: 07/10/18 09:48 Dose: 800 mg Sitagliptin Phosphate (Januvia) 25 mg PO DAILY [facility] Last Admin: 07/10/18 09:49 Dose: 25 mg Tramadol HCl (Ultram) 50 mg PO Q6H PRN PRN Reason: Pain, severe (8-10) Last Admin: 07/10/18 05:04 Dose: 50 mg Vitamin B Complex/Vit C/Folic Acid (Nephro-Tiffanie) 1 tab PO DAILY [facility] Last Admin: 07/10/18 09:48 Dose: 1 tab - Labs Labs: 07/09/18 07:23 07/09/18 07:23 PT 11.5 SECONDS (9.7-12.2) 07/07/18 13:25 INR 1.1 07/07/18 13:25 APTT 35 SECONDS (21-34) H 07/07/18 13:25
--- NOTE | 2018-07-10 14:35 | US ---
Date of service: 07/10/2018 PROCEDURE: HISTORY: AXILLARY LYMPH NODE FNA DONE BY DR BARRON COMPARISON: TECHNIQUE: FINDINGS: IMPRESSION: Procedure: Ultrasound guided lymph node aspiration biopsy. Clinical Indication: Tumor Physicians: Piyush Technique and Findings: The risks, benefits, and alternatives to the procedure were explained to the patient, and informed written consent for the procedure was obtained. Prior to the start of the procedure, a timeout was performed in which the patient's identity, site of procedure, and type of procedure was clarified. The patient was placed in a supine position and a limited ultrasound, demonstrating target lesion. The overlying skin of the axilla left was prepped and draped in sterile fashion. Local anesthesia was obtained with 1% lidocaine. An 25 gauge needle was used for aspiralnal biopsies, with 3 passes in total made into the target lesion. There were no periprocedural complications. Dr. Pickett was present for the entire procedure. Impression: Technically successful lymph lesion biopsy. No immediate complications. I have reviewed the images and concur with the above findings.
--- NOTE | 2018-07-10 18:46 | CP.PCM.CON ---
History of Present Illness - History of Present Illness History of Present Illness: 57 y/o female with a PMHx of diabetes and renal failure (on HD T-), sent in from dialysis today after she was found to be hypoglycemic. Patient is also complaining of swelling and pain to left side of her abdomen. Of note she was evaluated at [facility] [place] for this last week, states she was told she was hypoxic and needed to be on home O2. Otherwise patient denies any fever, chills, cough, SOB, chest pain, weakness, or dizziness. Patient said she took her insulin in the morning without eating anything. Heme-Onc consult called for ? new lung nodules and axillary and retroperitoneal lymph nodes. The patient has been losing weight since she started dialysis, denies night sweats or fevers. She underwent FNA of axillary LN Past Patient History - Infectious Disease Hx of Infectious Diseases: None - Tetanus Immunizations Tetanus Immunization: Unknown - Past Medical History & Family History Past Medical History?: Yes - Past Social History Smoking Status: Never Smoked - CARDIAC Hx Hypercholesterolemia: Yes Hx Hypertension: Yes Hx Pacemaker: No Hx Peripheral Edema: Yes (Left arm/Lhand/ble/ none at present time) - PULMONARY Hx Respiratory Disorders: No - NEUROLOGICAL Hx Neurological Disorder: No Hx Paralysis: No - HEENT Hx HEENT Problems: Yes Hx Glaucoma: Yes - RENAL Hx Chronic Kidney Disease: Yes - ENDOCRINE/METABOLIC Hx Endocrine Disorders: Yes Hx Diabetes Mellitus Type 2: Yes - HEMATOLOGICAL/ONCOLOGICAL Hx Anemia: Yes (blood transfusion) Hx Human Immunodeficiency Virus (HIV): No - INTEGUMENTARY Hx Dermatological Problems: No - MUSCULOSKELETAL/RHEUMATOLOGICAL Hx Falls: No Hx Fractures: Yes (left ankle fx and surgery) - GASTROINTESTINAL Hx Pancreatitis: Yes - GENITOURINARY/GYNECOLOGICAL Hx Genitourinary Disorders: Yes Hx Urinary Tract Infection: Yes - PSYCHIATRIC Hx Anxiety: Yes Hx Depression: Yes Hx Substance Use: No - SURGICAL HISTORY Hx Appendectomy: No (Denies.) - ANESTHESIA Hx Anesthesia: Yes Hx Anesthesia Reactions: No Hx Malignant Hyperthermia: No Meds Allergies/Adverse Reactions: Allergies Allergy/AdvReac Type Severity Reaction Status Date / Time No Known Allergies Allergy Verified 12/13/17 12:34 - Medications Medications: Current Medications Celecoxib (Celebrex) 200 mg PO BID [facility] Last Admin: 07/10/18 17:27 Dose: 200 mg Heparin Sodium (Porcine) (Heparin) 5,000 units SC Q12 [facility] Last Admin: 07/10/18 09:50 Dose: 5,000 units Ceftriaxone Sodium (Rocephin Iv 1 Gm Duplex) 50 mls @ 100 mls/hr IVPB Q24H [facility]; Protocol Last Admin: 07/10/18 01:26 Dose: 100 mls/hr Azithromycin (Zithromax 500mg In Ns Addvantage) 500 mg in 250 mls @ 167 mls/hr IVPB Q24H [facility]; Protocol Last Admin: 07/10/18 10:10 Dose: 167 mls/hr Insulin Glargine (Lantus) 10 unit SC BID [facility] Last Admin: 07/10/18 17:29 Dose: Not Given Insulin Human Regular (Novolin R) 0 unit SC ACHS [facility]; Protocol Last Admin: 07/10/18 17:28 Dose: Not Given Insulin Human Regular (Novolin R) 4 unit SC TIDCC [facility] Last Admin: 07/10/18 17:28 Dose: Not Given Metoprolol Tartrate (Lopressor) 50 mg PO BID [facility] Last Admin: 07/10/18 17:27 Dose: 50 mg Minoxidil (Minoxidil) 5 mg PO BID [facility] Last Admin: 07/10/18 17:27 Dose: 5 mg Nicotine (Nicoderm Cq) 1 patch TD DAILY [facility] Last Admin: 07/10/18 10:11 Dose: 1 patch Ondansetron HCl (Zofran Inj) 4 mg IVP Q4H PRN PRN Reason: Nausea/Vomiting Last Admin: 07/10/18 10:52 Dose: 4 mg Pantoprazole Sodium (Protonix Ec Tab) 40 mg PO DAILY [facility] Last Admin: 07/10/18 09:49 Dose: 40 mg Rosuvastatin Calcium (Crestor) 10 mg PO HS [facility] Last Admin: 07/09/18 22:01 Dose: 10 mg Sevelamer Carbonate (Renvela) 800 mg PO TID [facility] Last Admin: 07/10/18 17:27 Dose: 800 mg Sitagliptin Phosphate (Januvia) 25 mg PO DAILY [facility] Last Admin: 07/10/18 09:49 Dose: 25 mg Tramadol HCl (Ultram) 50 mg PO Q6H PRN PRN Reason: Pain, severe (8-10) Last Admin: 07/10/18 05:04 Dose: 50 mg Vitamin B Complex/Vit C/Folic Acid (Nephro-Tiffanie) 1 tab PO DAILY [facility] Last Admin: 07/10/18 09:48 Dose: 1 tab Results - Vital Signs Recent Vital Signs: Last Vital Signs Temp 98.1 F 07/10/18 16:30 Pulse 73 07/10/18 16:30 Resp 20 07/10/18 16:30 BP 150/72 07/10/18 16:30 Pulse Ox 97 07/10/18 16:30 - Labs Result Diagrams: 07/09/18 07:23 07/09/18 07:23 Labs: Laboratory Results - last 24 hr 07/08/18 07/09/18 07/10/18 08:56 21:17 02:16 POC Glucose (mg/dL) 93 122 H Ur L.pneumophila Ag Negative 07/10/18 07/10/18 07/10/18 06:26 11:49 16:23 POC Glucose (mg/dL) 99 148 H 127 H Ur L.pneumophila Ag Assessment & Plan - Assessment and Plan (Free Text) Assessment: 57 yo woman with findings of new pulmonary nodules and diffuse shotty lymphadenopathy. Have discussed with the patient regarding need for PET scan as outpatient and possibly excisional LN biopsy if these results are negative . LDH, sed rate, CEA with next lab work
[2018-07-10] MEDS ORDERED: guaiFENesin 100 mg/5 ml Syrup UD PO ONE (18:48)
--- NOTE | 2018-07-10 20:17 | CP.PCM.PN ---
Subjective - Date & Time of Evaluation Date of Evaluation: 07/10/18 Time of Evaluation: 20:17 - Subjective Subjective: AFEBRILE CLINICALLY SAME S/P LT AXILLARY LN BX 07/10/18 SEEN BY ONCOLOGY Objective - Vital Signs/Intake and Output Vital Signs (last 24 hours): Temp Pulse Resp BP Pulse Ox 98.1 F 73 20 150/72 97 07/10/18 16:30 07/10/18 16:30 07/10/18 16:30 07/10/18 16:30 07/10/18 16:30 - Medications Medications: Current Medications Celecoxib (Celebrex) 200 mg PO BID [facility] Last Admin: 07/10/18 17:27 Dose: 200 mg Heparin Sodium (Porcine) (Heparin) 5,000 units SC Q12 [facility] Last Admin: 07/10/18 09:50 Dose: 5,000 units Ceftriaxone Sodium (Rocephin Iv 1 Gm Duplex) 50 mls @ 100 mls/hr IVPB Q24H [facility]; Protocol Last Admin: 07/10/18 01:26 Dose: 100 mls/hr Azithromycin (Zithromax 500mg In Ns Addvantage) 500 mg in 250 mls @ 167 mls/hr IVPB Q24H [facility]; Protocol Last Admin: 07/10/18 10:10 Dose: 167 mls/hr Insulin Glargine (Lantus) 10 unit SC BID [facility] Last Admin: 07/10/18 17:29 Dose: Not Given Insulin Human Regular (Novolin R) 0 unit SC ACHS [facility]; Protocol Last Admin: 07/10/18 17:28 Dose: Not Given Insulin Human Regular (Novolin R) 4 unit SC TIDCC [facility] Last Admin: 07/10/18 17:28 Dose: Not Given Metoprolol Tartrate (Lopressor) 50 mg PO BID [facility] Last Admin: 07/10/18 17:27 Dose: 50 mg Minoxidil (Minoxidil) 5 mg PO BID [facility] Last Admin: 07/10/18 17:27 Dose: 5 mg Nicotine (Nicoderm Cq) 1 patch TD DAILY [facility] Last Admin: 07/10/18 10:11 Dose: 1 patch Ondansetron HCl (Zofran Inj) 4 mg IVP Q4H PRN PRN Reason: Nausea/Vomiting Last Admin: 07/10/18 10:52 Dose: 4 mg Pantoprazole Sodium (Protonix Ec Tab) 40 mg PO DAILY [facility] Last Admin: 07/10/18 09:49 Dose: 40 mg Rosuvastatin Calcium (Crestor) 10 mg PO HS [facility] Last Admin: 07/09/18 22:01 Dose: 10 mg Sevelamer Carbonate (Renvela) 800 mg PO TID [facility] Last Admin: 07/10/18 17:27 Dose: 800 mg Sitagliptin Phosphate (Januvia) 25 mg PO DAILY [facility] Last Admin: 07/10/18 09:49 Dose: 25 mg Tramadol HCl (Ultram) 50 mg PO Q6H PRN PRN Reason: Pain, severe (8-10) Last Admin: 07/10/18 18:51 Dose: 50 mg Vitamin B Complex/Vit C/Folic Acid (Nephro-Tiffanie) 1 tab PO DAILY [facility] Last Admin: 07/10/18 09:48 Dose: 1 tab - Labs Labs: 07/09/18 07:23 07/09/18 07:23 PT 11.5 SECONDS (9.7-12.2) 07/07/18 13:25 INR 1.1 07/07/18 13:25 APTT 35 SECONDS (21-34) H 07/07/18 13:25 - Constitutional Appears: No Acute Distress - Head Exam Head Exam: NORMAL INSPECTION - Eye Exam Eye Exam: EOMI, PERRL - ENT Exam ENT Exam: Normal Oropharynx - Neck Exam Neck Exam: Lymphadenopathy, Normal Inspection - Respiratory Exam Respiratory Exam: Rales (BASILAR RALES) - Cardiovascular Exam Cardiovascular Exam: REGULAR RHYTHM, +S1, +S2 - GI/Abdominal Exam GI & Abdominal Exam: Soft, Normal Bowel Sounds - Extremities Exam Extremities Exam: Normal Capillary Refill. absent: Calf Tenderness, Pedal Edema - Neurological Exam Neurological Exam: Awake, CN II-XII Intact, Oriented x3, Reflexes Normal - Skin Skin Exam: Normal Color, Warm Assessment and Plan - Assessment and Plan (Free Text) Assessment: IMPRESSION; PULMONARY NODULES WITH LYMPHADENOPATHY ? R/O MALIGNANCY LUNG VS METASTATIC DISEASE HYPOXEMIA R/O PNEUMONIA LLL -VE PE BY CT ANGIO. ESRD ON HD TTS. HYPOGLYCEMIA DIABETES MELLITUS. HYPERTENSION. PLAN; CONTINUE iv ROCEPHIN 1 G ONCE A DAY 07/08/17 ADD IV zITHROMAX 500 MG ONCE A DAY. 07/08/18. F/U BX LN -AXILLARY. HEMATOLOGY ONCOLOGY W/U IN PROGRESS.
[2018-07-11] MEDS: cefTRIAXone IV 1 gm in Dextros 50 ML IVPB SCH (00:46)
[2018-07-11] MEDS: guaiFENesin 100 mg/5 ml Syrup UD PO PRN ×2 (01:12→19:04)
--- NOTE | 2018-07-11 02:51 | PN ---
DATE: 07/10/2018 SUBJECTIVE: The patient is a 57-year-old female. The patient was seen and examined at bedside on 07/10/2018. Looking comfortable. Status post biopsy from the left axillary lymph nodes. No fever. No chills. No hematuria or hematochezia. 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 PHYSICAL EXAMINATION: VITAL SIGNS: Temperature 98.1, pulse 73, respiratory rate 20, blood pressure 150/70, and pulse oximetry 97%. HEENT: Head: Normocephalic and atraumatic. Eyes: PERRLA. Extraocular muscles intact. Conjunctivae clear. Nose is patent. Mucous membranes are moist. NECK: Supple. No carotid bruits, JVD, or thyromegaly. CHEST: Bilaterally symmetrical. HEART: S1 and S2 positive. LUNGS: Clear to auscultation. ABDOMEN: Soft. Bowel sounds present. No organomegaly. EXTREMITIES: No edema. No cyanosis. NEUROLOGIC: The patient is awake and alert. Moving all four extremities. No focal deficits. LABORATORY DATA: White blood cell count 6.2, hemoglobin 9.7, hematocrit 29.8, and platelets 168. Sodium 136, potassium 4.2, BUN 42, creatinine noted , and glucose 118. ASSESSMENT AND PLAN: Ms. Shelley Gamez is a 57-year-old lady with anemia, hyperchloremia, renal insufficiency, hyperglycemia, had new pulmonary nodules and diffuse shotty lymphadenopathy. Discussion done with the patient. As per Oncology, the patient needs PET scan as outpatient. Had possible sentinel lymph node biopsy. Feasibly, the results are negative and Oncology ordered LDH, sedimentation rate, CEA . The patient has renal insufficiency, getting dialysis three times a week. Seen by Infectious Disease, Dr. Brenton Jaquez, but I do not know her plan. Gastrointestinal and deep venous thrombosis prophylaxis. Repeat laboratories. We will follow up. July Dunne MD JACQUES
[2018-07-11] MEDS: (Novolin R) Insulin Human Regular 100 units/ml vial SC SCH ×7 (07:49→21:22)
[2018-07-11] MEDS: Multivitamin Vitamin B Complex (Nephro-Vite) Tab PO SCH (10:28)
[2018-07-11] MEDS: Pantoprazole 40 mg EC Tab PO SCH (10:28)
[2018-07-11] MEDS: (Lantus) Insulin Glargine, Recombinant SC SCH ×2 (10:28→17:39)
[2018-07-11] MEDS: Azithromycin 500mg/250ML NS 500 MG/250 ML BAG IVPB SCH (10:29)
--- NOTE | 2018-07-11 11:18 | CP.PCM.PN ---
Subjective - Date & Time of Evaluation Date of Evaluation: 07/11/18 Time of Evaluation: 10:40 - Subjective Subjective: Patient seen and examined during hemodialysis Denies cough, denies shortness of breath Status post biopsy of axillary lymph node Afebrile Objective - Vital Signs/Intake and Output Vital Signs (last 24 hours): Temp Pulse Resp BP Pulse Ox 99.6 F 85 16 151/67 H 96 07/11/18 09:25 07/11/18 09:25 07/11/18 09:25 07/11/18 10:55 07/11/18 09:25 Intake and Output: 07/11/18 07/11/18 06:59 18:59 Intake Total 100 Balance 100 - Medications Medications: Current Medications Celecoxib (Celebrex) 200 mg PO BID [facility] Last Admin: 07/11/18 10:28 Dose: Not Given Guaifenesin (Robitussin) 100 mg PO Q4H PRN PRN Reason: Cough Last Admin: 07/11/18 01:12 Dose: 100 mg Heparin Sodium (Porcine) (Heparin) 5,000 units SC Q12 [facility] Last Admin: 07/11/18 10:28 Dose: Not Given Ceftriaxone Sodium (Rocephin Iv 1 Gm Duplex) 50 mls @ 100 mls/hr IVPB Q24H [facility]; Protocol Last Admin: 07/11/18 00:46 Dose: 100 mls/hr Azithromycin (Zithromax 500mg In Ns Addvantage) 500 mg in 250 mls @ 167 mls/hr IVPB Q24H [facility]; Protocol Last Admin: 07/11/18 10:29 Dose: Not Given Insulin Glargine (Lantus) 10 unit SC BID [facility] Last Admin: 07/11/18 10:28 Dose: Not Given Insulin Human Regular (Novolin R) 0 unit SC ACHS [facility]; Protocol Last Admin: 07/11/18 07:49 Dose: 3 units Insulin Human Regular (Novolin R) 4 unit SC TIDCC [facility] Last Admin: 07/11/18 08:10 Dose: Not Given Metoprolol Tartrate (Lopressor) 50 mg PO BID [facility] Last Admin: 07/11/18 10:28 Dose: Not Given Minoxidil (Minoxidil) 5 mg PO BID [facility] Last Admin: 07/11/18 10:28 Dose: Not Given Nicotine (Nicoderm Cq) 1 patch TD DAILY [facility] Last Admin: 07/11/18 10:28 Dose: Not Given Ondansetron HCl (Zofran Inj) 4 mg IVP Q4H PRN PRN Reason: Nausea/Vomiting Last Admin: 07/10/18 10:52 Dose: 4 mg Pantoprazole Sodium (Protonix Ec Tab) 40 mg PO DAILY [facility] Last Admin: 07/11/18 10:28 Dose: Not Given Rosuvastatin Calcium (Crestor) 10 mg PO HS [facility] Last Admin: 07/10/18 21:32 Dose: 10 mg Sevelamer Carbonate (Renvela) 800 mg PO TID [facility] Last Admin: 07/11/18 10:29 Dose: Not Given Sitagliptin Phosphate (Januvia) 25 mg PO DAILY [facility] Last Admin: 07/11/18 10:28 Dose: Not Given Tramadol HCl (Ultram) 50 mg PO Q6H PRN PRN Reason: Pain, severe (8-10) Last Admin: 07/10/18 18:51 Dose: 50 mg Vitamin B Complex/Vit C/Folic Acid (Nephro-Tiffanie) 1 tab PO DAILY [facility] Last Admin: 07/11/18 10:28 Dose: Not Given - Labs Labs: 07/09/18 07:23 07/09/18 07:23 PT 11.5 SECONDS (9.7-12.2) 07/07/18 13:25 INR 1.1 07/07/18 13:25 APTT 35 SECONDS (21-34) H 07/07/18 13:25 - Head Exam Head Exam: ATRAUMATIC, NORMOCEPHALIC - ENT Exam ENT Exam: Mucous Membranes Moist - Neck Exam Neck Exam: Normal Inspection - Respiratory Exam Respiratory Exam: Decreased Breath Sounds - Cardiovascular Exam Cardiovascular Exam: REGULAR RHYTHM - GI/Abdominal Exam GI & Abdominal Exam: Soft, Normal Bowel Sounds Assessment and Plan (1) Pulmonary nodules Assessment & Plan: Biopsy of the lung nodules as outpatient PET scan of the chest as outpatient Continue hemodialysis Status: Acute (2) ESRD needing dialysis Status: Acute
--- NOTE | 2018-07-11 13:08 | CP.PCM.PN ---
Subjective - Date & Time of Evaluation Date of Evaluation: 07/11/18 Time of Evaluation: 13:07 - Subjective Subjective: Nephrology Consultation Note: Assessment: Stable pulmonary nodules with lymphadenopathy ? malignancy fluid overload, hypoglycemia Diabetic chronic Kidney Disease (E11.22) Hypertensive Chronic Kidney Disease (I12.0) End stage renal disease (N18.6) dependence on hemodialysis (Z99.2) (TTS) via AVF Anemia (D64.9), Hyperphosphatemia (E83.39), Secondary Hyperparathyroidism (E21.1), HTN (I12.0) Plan: seen on HD tolerating Continue with Nephrovite 1 tab/day. PRBC as needed for anemia. not On SARI with HD as last Hb 9.6 but with concerns of malignancy awaiting work up Continue with phos binders home dose BP control with meds as ordered. Glycemic control, Dialysis consistent diet Further work up/management as per primary team S:seen on hd Physical Examination: General Appearance: Comfortable, in no acute respiratory distress, co-operative . Vitals reviewed and noted as below Head; Atraumatic, normocephalic ENT: no ulcers no thrush. Tongue is midline. Oropharynx: no rash or ulcers. EYES: Pupils are equal, round and reactive to light accommodation. Eye muscles and extraocular movement intact. Sclera is anicteric. able to read from rt eye Neck; supple no lymphadenopathy, no thyromegaly or bruit Lungs: Normal respiratory rate/effort. Breath sounds bilateral reduced at bases Heart: Normal rate. s1s2 normal. No rub or gallop. Extremities: 2+ edema. No varicose veins. chronic LUE swelling, hx of stenosis above the access s/p angioplasty and stenting Neurological: Patient is alert, awake and oriented to person, place and time. No focal deficit. Strength bilateral appropriate and equal Skin: Warm and dry. Normal turgor. No rash. Palpitation: Normal elasticity for age Abdomen: Abdomen is soft. Bowel sounds +. There is no abdominal tenderness, no guarding/rigidity or organomegaly Psych: limited insight and normal affect/mood MSK: no joint tenderness or swelling. Digits and nails normal, no deformity : kidney or bladder not palpable Access: LUE AVF Labs/imaging reviewed. Past medical history, past surgical history, family history, social history, allergy reviewed and noted as below Family Hx: no hx of CKD. Non contributory Objective - Vital Signs/Intake and Output Vital Signs (last 24 hours): Temp Pulse Resp BP Pulse Ox 99.6 F 85 16 165/67 H 96 07/11/18 09:25 07/11/18 09:25 07/11/18 09:25 07/11/18 12:25 07/11/18 09:25 Intake and Output: 07/11/18 07/11/18 06:59 18:59 Intake Total 100 Balance 100 - Medications Medications: Current Medications Celecoxib (Celebrex) 200 mg PO BID [facility] Last Admin: 07/11/18 10:28 Dose: Not Given Guaifenesin (Robitussin) 100 mg PO Q4H PRN PRN Reason: Cough Last Admin: 07/11/18 01:12 Dose: 100 mg Heparin Sodium (Porcine) (Heparin) 5,000 units SC Q12 [facility] Last Admin: 07/11/18 10:28 Dose: Not Given Ceftriaxone Sodium (Rocephin Iv 1 Gm Duplex) 50 mls @ 100 mls/hr IVPB Q24H [facility]; Protocol Last Admin: 07/11/18 00:46 Dose: 100 mls/hr Azithromycin (Zithromax 500mg In Ns Addvantage) 500 mg in 250 mls @ 167 mls/hr IVPB Q24H [facility]; Protocol Last Admin: 07/11/18 10:29 Dose: Not Given Insulin Glargine (Lantus) 10 unit SC BID [facility] Last Admin: 07/11/18 10:28 Dose: Not Given Insulin Human Regular (Novolin R) 0 unit SC ACHS [facility]; Protocol Last Admin: 07/11/18 07:49 Dose: 3 units Insulin Human Regular (Novolin R) 4 unit SC TIDCC [facility] Last Admin: 07/11/18 08:10 Dose: Not Given Metoprolol Tartrate (Lopressor) 50 mg PO BID [facility] Last Admin: 07/11/18 10:28 Dose: Not Given Minoxidil (Minoxidil) 5 mg PO BID [facility] Last Admin: 07/11/18 10:28 Dose: Not Given Nicotine (Nicoderm Cq) 1 patch TD DAILY [facility] Last Admin: 07/11/18 10:28 Dose: Not Given Ondansetron HCl (Zofran Inj) 4 mg IVP Q4H PRN PRN Reason: Nausea/Vomiting Last Admin: 07/10/18 10:52 Dose: 4 mg Pantoprazole Sodium (Protonix Ec Tab) 40 mg PO DAILY [facility] Last Admin: 07/11/18 10:28 Dose: Not Given Rosuvastatin Calcium (Crestor) 10 mg PO HS [facility] Last Admin: 07/10/18 21:32 Dose: 10 mg Sevelamer Carbonate (Renvela) 800 mg PO TID [facility] Last Admin: 07/11/18 10:29 Dose: Not Given Sitagliptin Phosphate (Januvia) 25 mg PO DAILY [facility] Last Admin: 07/11/18 10:28 Dose: Not Given Tramadol HCl (Ultram) 50 mg PO Q6H PRN PRN Reason: Pain, severe (8-10) Last Admin: 07/10/18 18:51 Dose: 50 mg Vitamin B Complex/Vit C/Folic Acid (Nephro-Tiffanie) 1 tab PO DAILY [facility] Last Admin: 07/11/18 10:28 Dose: Not Given - Labs Labs: 07/09/18 07:23 07/09/18 07:23 PT 11.5 SECONDS (9.7-12.2) 07/07/18 13:25 INR 1.1 07/07/18 13:25 APTT 35 SECONDS (21-34) H 07/07/18 13:25
[2018-07-11 13:21] VITALS: RESP 20
[2018-07-11] MEDS ORDERED: Influenza Vaccine 60 mcg/0.5 mL SYR (4YR UP) IM ONE (14:05)
--- NOTE | 2018-07-11 15:03 | CP.PCM.PN ---
Subjective - Date & Time of Evaluation Date of Evaluation: 07/11/18 Time of Evaluation: 15:03 - Subjective Subjective: AFEBRILE CLINICALLY SAME S/P LT [address] BX 07/10/18 SEEN BY ONCOLOGY. no new complaints Objective - Vital Signs/Intake and Output Vital Signs (last 24 hours): Temp Pulse Resp BP Pulse Ox 98.8 F 93 H 20 179/65 H 95 07/11/18 12:55 07/11/18 12:55 07/11/18 12:55 07/11/18 12:55 07/11/18 12:55 Intake and Output: 07/11/18 07/11/18 06:59 18:59 Intake Total 100 Balance 100 - Medications Medications: Current Medications Celecoxib (Celebrex) 200 mg PO BID [facility] Last Admin: 07/11/18 10:28 Dose: Not Given Guaifenesin (Robitussin) 100 mg PO Q4H PRN PRN Reason: Cough Last Admin: 07/11/18 01:12 Dose: 100 mg Heparin Sodium (Porcine) (Heparin) 5,000 units SC Q12 [facility] Last Admin: 07/11/18 10:28 Dose: Not Given Ceftriaxone Sodium (Rocephin Iv 1 Gm Duplex) 50 mls @ 100 mls/hr IVPB Q24H [facility]; Protocol Last Admin: 07/11/18 00:46 Dose: 100 mls/hr Azithromycin (Zithromax 500mg In Ns Addvantage) 500 mg in 250 mls @ 167 mls/hr IVPB Q24H [facility]; Protocol Last Admin: 07/11/18 10:29 Dose: Not Given Insulin Glargine (Lantus) 10 unit SC BID [facility] Last Admin: 07/11/18 10:28 Dose: Not Given Insulin Human Regular (Novolin R) 0 unit SC ACHS [facility]; Protocol Last Admin: 07/11/18 13:37 Dose: Not Given Insulin Human Regular (Novolin R) 4 unit SC TIDCC [facility] Last Admin: 07/11/18 11:30 Dose: Not Given Metoprolol Tartrate (Lopressor) 50 mg PO BID [facility] Last Admin: 07/11/18 10:28 Dose: Not Given Minoxidil (Minoxidil) 5 mg PO BID [facility] Last Admin: 07/11/18 10:28 Dose: Not Given Nicotine (Nicoderm Cq) 1 patch TD DAILY [facility] Last Admin: 07/11/18 10:28 Dose: Not Given Ondansetron HCl (Zofran Inj) 4 mg IVP Q4H PRN PRN Reason: Nausea/Vomiting Last Admin: 07/10/18 10:52 Dose: 4 mg Pantoprazole Sodium (Protonix Ec Tab) 40 mg PO DAILY [facility] Last Admin: 07/11/18 10:28 Dose: Not Given Rosuvastatin Calcium (Crestor) 10 mg PO HS [facility] Last Admin: 07/10/18 21:32 Dose: 10 mg Sevelamer Carbonate (Renvela) 800 mg PO TID [facility] Last Admin: 07/11/18 13:38 Dose: Not Given Sitagliptin Phosphate (Januvia) 25 mg PO DAILY [facility] Last Admin: 07/11/18 10:28 Dose: Not Given Tramadol HCl (Ultram) 50 mg PO Q6H PRN PRN Reason: Pain, severe (8-10) Last Admin: 07/10/18 18:51 Dose: 50 mg Vitamin B Complex/Vit C/Folic Acid (Nephro-Tiffanie) 1 tab PO DAILY [facility] Last Admin: 07/11/18 10:28 Dose: Not Given - Labs Labs: 07/09/18 07:23 07/09/18 07:23 PT 11.5 SECONDS (9.7-12.2) 07/07/18 13:25 INR 1.1 07/07/18 13:25 APTT 35 SECONDS (21-34) H 07/07/18 13:25 - Constitutional Appears: No Acute Distress - Head Exam Head Exam: NORMAL INSPECTION - Eye Exam Eye Exam: EOMI, PERRL - ENT Exam ENT Exam: Normal Oropharynx - Neck Exam Neck Exam: Normal Inspection - Respiratory Exam Respiratory Exam: Rales (basilar B/L ) - Cardiovascular Exam Cardiovascular Exam: REGULAR RHYTHM, +S1, +S2 - GI/Abdominal Exam GI & Abdominal Exam: Soft, Normal Bowel Sounds - Extremities Exam Extremities Exam: Normal Capillary Refill. absent: Calf Tenderness, Pedal Edema - Neurological Exam Neurological Exam: Awake, CN II-XII Intact, Oriented x3, Reflexes Normal - Psychiatric Exam Psychiatric exam: Normal Mood - Skin Skin Exam: Normal Color, Warm Assessment and Plan - Assessment and Plan (Free Text) Assessment: IMPRESSION; S/P LT. AXILLARY LN BX. PULMONARY NODULES WITH LYMPHADENOPATHY ? R/O MALIGNANCY LUNG VS METASTATIC DISEASE HYPOXEMIA R/O PNEUMONIA LLL -VE PE BY CT ANGIO. ESRD ON HD TTS. HYPOGLYCEMIA DIABETES MELLITUS. HYPERTENSION. PLAN; CONTINUE iv ROCEPHIN 1 G ONCE A DAY 07/08/17 ADD IV zITHROMAX 500 MG ONCE A DAY. 07/08/18. F/U BX LN -AXILLARY. HEMATOLOGY ONCOLOGY W/U IN PROGRESS. REPORTED BY OUTER DIAMETER TECHNICIAN MS LOYD PT CLEARED FOR DC BY PULMONARY AND F/U OPD FOR PET SCAN. MAY DC IV ROCEPHIN ON DC CONTINUE PO ZITHROMAX 250MG PO OD X 5DAYS POST DC .
--- NOTE | 2018-07-11 16:58 | CP.PCM.PN ---
Objective - Vital Signs/Intake and Output Vital Signs (last 24 hours): Temp Pulse Resp BP Pulse Ox 98.8 F 93 H 20 179/65 H 95 07/11/18 12:55 07/11/18 12:55 07/11/18 12:55 07/11/18 12:55 07/11/18 12:55 Intake and Output: 07/11/18 07/11/18 06:59 18:59 Intake Total 100 Balance 100 - Medications Medications: Current Medications Celecoxib (Celebrex) 200 mg PO BID [facility] Last Admin: 07/11/18 10:28 Dose: Not Given Guaifenesin (Robitussin) 100 mg PO Q4H PRN PRN Reason: Cough Last Admin: 07/11/18 01:12 Dose: 100 mg Heparin Sodium (Porcine) (Heparin) 5,000 units SC Q12 [facility] Last Admin: 07/11/18 10:28 Dose: Not Given Ceftriaxone Sodium (Rocephin Iv 1 Gm Duplex) 50 mls @ 100 mls/hr IVPB Q24H [facility]; Protocol Last Admin: 07/11/18 00:46 Dose: 100 mls/hr Azithromycin (Zithromax 500mg In Ns Addvantage) 500 mg in 250 mls @ 167 mls/hr IVPB Q24H [facility]; Protocol Last Admin: 07/11/18 10:29 Dose: Not Given Insulin Glargine (Lantus) 10 unit SC BID [facility] Last Admin: 07/11/18 10:28 Dose: Not Given Insulin Human Regular (Novolin R) 0 unit SC ACHS [facility]; Protocol Last Admin: 07/11/18 13:37 Dose: Not Given Insulin Human Regular (Novolin R) 4 unit SC TIDCC [facility] Last Admin: 07/11/18 11:30 Dose: Not Given Metoprolol Tartrate (Lopressor) 50 mg PO BID [facility] Last Admin: 07/11/18 10:28 Dose: Not Given Minoxidil (Minoxidil) 5 mg PO BID [facility] Last Admin: 07/11/18 10:28 Dose: Not Given Nicotine (Nicoderm Cq) 1 patch TD DAILY [facility] Last Admin: 07/11/18 10:28 Dose: Not Given Ondansetron HCl (Zofran Inj) 4 mg IVP Q4H PRN PRN Reason: Nausea/Vomiting Last Admin: 07/10/18 10:52 Dose: 4 mg Pantoprazole Sodium (Protonix Ec Tab) 40 mg PO DAILY [facility] Last Admin: 07/11/18 10:28 Dose: Not Given Rosuvastatin Calcium (Crestor) 10 mg PO HS [facility] Last Admin: 07/10/18 21:32 Dose: 10 mg Sevelamer Carbonate (Renvela) 800 mg PO TID [facility] Last Admin: 07/11/18 13:38 Dose: Not Given Sitagliptin Phosphate (Januvia) 25 mg PO DAILY [facility] Last Admin: 07/11/18 10:28 Dose: Not Given Tramadol HCl (Ultram) 50 mg PO Q6H PRN PRN Reason: Pain, severe (8-10) Last Admin: 07/10/18 18:51 Dose: 50 mg Vitamin B Complex/Vit C/Folic Acid (Nephro-Tiffanie) 1 tab PO DAILY [facility] Last Admin: 07/11/18 10:28 Dose: Not Given - Labs Labs: 07/09/18 07:23 07/09/18 07:23 PT 11.5 SECONDS (9.7-12.2) 07/07/18 13:25 INR 1.1 07/07/18 13:25 APTT 35 SECONDS (21-34) H 07/07/18 13:25 Assessment and Plan - Assessment and Plan (Free Text) Assessment: admitted with generalized weakness, pneumonia, pulmonary nodules, seen and examined after HD today. Awake, alert, denies acute pain or distress.
--- NOTE | 2018-07-11 18:30 | CP.PCM.CON ---
History of Present Illness - History of Present Illness History of Present Illness: uncontrolled IDDM with hypoglycemia Past Patient History - Infectious Disease Hx of Infectious Diseases: None - Tetanus Immunizations Tetanus Immunization: Unknown - Past Medical History & Family History Past Medical History?: Yes - Past Social History Smoking Status: Never Smoked - CARDIAC Hx Hypercholesterolemia: Yes Hx Hypertension: Yes Hx Pacemaker: No Hx Peripheral Edema: Yes (Left arm/Lhand/ble/ none at present time) - PULMONARY Hx Respiratory Disorders: No - NEUROLOGICAL Hx Neurological Disorder: No Hx Paralysis: No - HEENT Hx HEENT Problems: Yes Hx Glaucoma: Yes - RENAL Hx Chronic Kidney Disease: Yes - ENDOCRINE/METABOLIC Hx Endocrine Disorders: Yes Hx Diabetes Mellitus Type 2: Yes - HEMATOLOGICAL/ONCOLOGICAL Hx Anemia: Yes (blood transfusion) Hx Human Immunodeficiency Virus (HIV): No - INTEGUMENTARY Hx Dermatological Problems: No - MUSCULOSKELETAL/RHEUMATOLOGICAL Hx Falls: No Hx Fractures: Yes (left ankle fx and surgery) - GASTROINTESTINAL Hx Pancreatitis: Yes - GENITOURINARY/GYNECOLOGICAL Hx Genitourinary Disorders: Yes Hx Urinary Tract Infection: Yes - PSYCHIATRIC Hx Anxiety: Yes Hx Depression: Yes Hx Substance Use: No - SURGICAL HISTORY Hx Appendectomy: No (Denies.) - ANESTHESIA Hx Anesthesia: Yes Hx Anesthesia Reactions: No Hx Malignant Hyperthermia: No Meds Home Medications: Home Medication List Medication Instructions Recorded Confirmed Type Azithromycin [Z-Anotnio] 250 mg PO DAILY 5 Days #6 tab 07/11/18 Rx Allergies/Adverse Reactions: Allergies Allergy/AdvReac Type Severity Reaction Status Date / Time No Known Allergies Allergy Verified 12/13/17 12:34 - Medications Medications: Current Medications Celecoxib (Celebrex) 200 mg PO BID [facility] Last Admin: 07/11/18 17:37 Dose: 200 mg Guaifenesin (Robitussin) 100 mg PO Q4H PRN PRN Reason: Cough Last Admin: 07/11/18 01:12 Dose: 100 mg Heparin Sodium (Porcine) (Heparin) 5,000 units SC Q12 [facility] Last Admin: 07/11/18 10:28 Dose: Not Given Ceftriaxone Sodium (Rocephin Iv 1 Gm Duplex) 50 mls @ 100 mls/hr IVPB Q24H [facility]; Protocol Last Admin: 07/11/18 00:46 Dose: 100 mls/hr Azithromycin (Zithromax 500mg In Ns Addvantage) 500 mg in 250 mls @ 167 mls/hr IVPB Q24H [facility]; Protocol Last Admin: 07/11/18 10:29 Dose: Not Given Insulin Glargine (Lantus) 10 unit SC BID [facility] Last Admin: 07/11/18 17:39 Dose: 10 unit Insulin Human Regular (Novolin R) 0 unit SC ACHS [facility]; Protocol Last Admin: 07/11/18 17:38 Dose: 3 units Insulin Human Regular (Novolin R) 4 unit SC TIDCC [facility] Last Admin: 07/11/18 17:38 Dose: 4 unit Metoprolol Tartrate (Lopressor) 50 mg PO BID [facility] Last Admin: 07/11/18 17:37 Dose: 50 mg Minoxidil (Minoxidil) 5 mg PO BID [facility] Last Admin: 07/11/18 17:37 Dose: 5 mg Nicotine (Nicoderm Cq) 1 patch TD DAILY [facility] Last Admin: 07/11/18 10:28 Dose: Not Given Ondansetron HCl (Zofran Inj) 4 mg IVP Q4H PRN PRN Reason: Nausea/Vomiting Last Admin: 07/10/18 10:52 Dose: 4 mg Pantoprazole Sodium (Protonix Ec Tab) 40 mg PO DAILY [facility] Last Admin: 07/11/18 10:28 Dose: Not Given Rosuvastatin Calcium (Crestor) 10 mg PO HS [facility] Last Admin: 07/10/18 21:32 Dose: 10 mg Sevelamer Carbonate (Renvela) 800 mg PO TID [facility] Last Admin: 07/11/18 17:37 Dose: 800 mg Sitagliptin Phosphate (Januvia) 25 mg PO DAILY [facility] Last Admin: 07/11/18 10:28 Dose: Not Given Tramadol HCl (Ultram) 50 mg PO Q6H PRN PRN Reason: Pain, severe (8-10) Last Admin: 07/10/18 18:51 Dose: 50 mg Vitamin B Complex/Vit C/Folic Acid (Nephro-Tiffanie) 1 tab PO DAILY [facility] Last Admin: 07/11/18 10:28 Dose: Not Given Results - Vital Signs Recent Vital Signs: Last Vital Signs Temp 99.6 F 07/11/18 15:00 Pulse 91 H 07/11/18 15:00 Resp 20 07/11/18 15:00 BP 161/61 H 07/11/18 15:00 Pulse Ox 96 07/11/18 15:00 - Labs Result Diagrams: 07/09/18 07:23 07/09/18 07:23 Labs: Laboratory Results - last 24 hr 07/10/18 07/11/18 07/11/18 20:56 06:30 06:57 ESR 37 H POC Glucose (mg/dL) 232 H 273 H Lactate Dehydrogenase Carcinoembryonic Ag 07/11/18 07/11/18 07/11/18 06:57 11:31 15:58 ESR POC Glucose (mg/dL) 197 H 256 H Lactate Dehydrogenase 488 Carcinoembryonic Ag 3.3 H Assessment & Plan (1) Diabetes mellitus, insulin dependent (IDDM), uncontrolled Assessment and Plan: Endocrine consult reason for consult: uncontrolled diabetes hypoglycemia Source: patient and chart review Ms. Gamez is 57 y/o admitted for hypoglycemia glucose 40-50 respond to juice & D50 repeat 109 ,nowglucose 400-500& CHF as per pt. has DM for 30 years (-) neuropathy , (+) retinopathy s/p injection right eye , ESRDon HD (-) CAD (-) PVD (pt. seen 07/09 note documeted today for technical issue with [employer] resolved today) , start insulin regimen recommended lantus 10units @ 9pm ,regular insulin low dose coverage & regular insulin 4 units tid with meals,improved with oneepisode of 85 , regular insulin was decreased to 3 units tid with meals outpatient diabetes management regimen : humalog 10 units tid & basaglar 10 units bid blood glucose log :today 140-200 NO hypoglycemia Allergy NKDA Past medical history:HTN , hyperlipidemia Past surgical history: left arm A-V graft & cataract Psychiatry history: denies Social history: (+)smoking , denies ETOH use , illicit drug use Family history: mother with DM ROS: Constitutional: denies fever, tiredness/weakness. HEENT: denies earache, change in voice .Respiratory: denies cough, sob . CVS :no chest pain, no palpitations . Abdomen: no abdominal pain, no nausea /vomiting, no change bowel movement. [employer]ES [employer]IVE [employer] : denies light-headedness, dizziness. Extremities: no edema, no tremors. Skin: no itching, no rash Physical exam Well-developed AAO x3 , ,NAD VSS HEENT: norm cephalic, atraumatic, no lid lag , no exophthalmos NECK: supple, no palpable lymphadenopathy THYROID: no palpable thyromegaly, not tender CHEST: fair air entry, bilateral, CVS: S1,S2 ABDOMEN: bowel sound present, benign, obese, no wide purple striae , no bruises EXTREMITIES: no edema, clubbing or cyanosis, no palpable hand tremors Skin: acanthosis nigricans -lab: tsh0.87 , a1c 7.7 Assessment: hypoglycemia , resolved uncontrolled IDDM ESRD on HD CHF /pneumonia on antibiotics plan : continue lantus 10 units @ 9pm daily continue Novoloin R low dose coverage tid & hs continue novoloin R 4 units tid with meals if eat > 60% advised to stop smoking especially with DM , pt understands will try Thank you for allowing me to participate in the care of the patient, we will follow with you. Sara Buenrostro # [phone] office Fridays & Saturdays address: [address] [place] [address] ,phone # [phone] ,FAX [phone] Status: Acute (2) Hypoglycemia associated with diabetes Status: Acute (3) ESRD needing dialysis Status: Acute (4) CHF (congestive heart failure) Status: Acute
[2018-07-11 18:37] LABS: ABG ALLEN TEST YES; ARTERIAL BLOOD GAS HCO3 29.3 mmol/L (21-28); ARTERIAL BLOOD GAS HEMOGLOBIN 9.5 g/dL (11.7-17.4); ARTERIAL BLOOD GAS O2 SAT 97.2 % (95-98); ARTERIAL BLOOD GAS PCO2 49 mm/Hg (35-45); ARTERIAL BLOOD GAS PH 7.41 (7.35-7.45); ARTERIAL BLOOD GAS PO2 70 mm/Hg (80-100); ARTERIAL BLOOD GAS TCO2 32.6 mmol/L (22-28)
[2018-07-12] MEDS: cefTRIAXone IV 1 gm in Dextros 50 ML IVPB SCH (01:49)
[2018-07-12] MEDS: (Novolin R) Insulin Human Regular 100 units/ml vial SC SCH ×7 (08:04→21:29)
[2018-07-12 08:50] LABS: BASO % 1.4 % (0.0-2.0); EOS % 1.2 % (0.0-4.0); HEMOGLOBIN 9.9 g/dL (11.0-16.0); LYMPH # 0.3 K/uL (1.0-4.3); LYMPH % 11.1 % (20.0-40.0); MEAN CORPUSCULAR HEMOGLOBIN 29.5 pg (27.0-31.0); MEAN CORPUSCULAR HGB CONC 32.4 g/dL (33.0-37.0); MEAN PLATELET VOLUME 9.4 fL (7.2-11.7); MONO # 0.4 K/uL (0.0-0.8); MONO % 14.5 % (0.0-10.0); NEUT # 2.2 K/uL (1.8-7.0); NEUT % 71.8 % (50.0-75.0); NRBC % 0.1 % (0.0-2.0); RBC 3.35 Mil/uL (3.80-5.20); RED CELL DISTRIBUTION WIDTH 20.3 % (11.5-14.5)
[2018-07-12 09:23] LABS: ALB/GLOB RATIO 1.3 (1.0-2.1); ALBUMIN 4.1 g/dL (3.5-5.0); CALCIUM 8.5 mg/dl (8.6-10.4)
[2018-07-12] MEDS: Multivitamin Vitamin B Complex (Nephro-Vite) Tab PO SCH (09:53)
[2018-07-12] MEDS: Pantoprazole 40 mg EC Tab PO SCH (09:53)
[2018-07-12] MEDS: (Lantus) Insulin Glargine, Recombinant SC SCH ×2 (09:53→17:56)
[2018-07-12] MEDS: Azithromycin 500mg/250ML NS 500 MG/250 ML BAG IVPB SCH (09:56)
--- NOTE | 2018-07-12 12:08 | CP.PCM.PN ---
Subjective - Date & Time of Evaluation Date of Evaluation: 07/12/18 Time of Evaluation: 12:06 - Subjective Subjective: Pulmonary, Covering Dr Delarosa The Patient was seen and examined at the bedside, Medical records reviewed, and management issues were discussed and formulated with the house staff. Events reviewed Status post biopsy of axillary lymph node She is doing better today Respiratory status has been stable Afebrile Saturation is 95-98% on room air Denies cough, denies shortness of breath Objective - Vital Signs/Intake and Output Vital Signs (last 24 hours): Temp Pulse Resp BP Pulse Ox 98.5 F 83 20 149/60 98 07/12/18 07:00 07/12/18 08:00 07/12/18 07:00 07/12/18 07:00 07/12/18 07:00 Intake and Output: 07/12/18 07/12/18 06:59 18:59 Intake Total 80 Balance 80 - Medications Medications: Current Medications Acetaminophen (Tylenol 325mg Tab) 650 mg PO Q6 PRN PRN Reason: pain or fever > 100.4 Last Admin: 07/12/18 05:27 Dose: 650 mg Celecoxib (Celebrex) 200 mg PO BID [facility] Last Admin: 07/12/18 09:53 Dose: 200 mg Guaifenesin (Robitussin) 100 mg PO Q4H PRN PRN Reason: Cough Last Admin: 07/11/18 19:04 Dose: 100 mg Heparin Sodium (Porcine) (Heparin) 5,000 units SC Q12 [facility] Last Admin: 07/12/18 09:53 Dose: 5,000 units Ceftriaxone Sodium (Rocephin Iv 1 Gm Duplex) 50 mls @ 100 mls/hr IVPB Q24H [facility]; Protocol Last Admin: 07/12/18 01:49 Dose: 100 mls/hr Azithromycin (Zithromax 500mg In Ns Addvantage) 500 mg in 250 mls @ 167 mls/hr IVPB Q24H [facility]; Protocol Last Admin: 07/12/18 09:56 Dose: 167 mls/hr Insulin Glargine (Lantus) 10 unit SC BID [facility] Last Admin: 07/12/18 09:53 Dose: 10 unit Insulin Human Regular (Novolin R) 0 unit SC ACHS [facility]; Protocol Last Admin: 07/12/18 08:04 Dose: 3 units Insulin Human Regular (Novolin R) 4 unit SC TIDCC [facility] Last Admin: 07/12/18 08:05 Dose: 4 unit Metoprolol Tartrate (Lopressor) 50 mg PO BID [facility] Last Admin: 07/12/18 09:53 Dose: 50 mg Minoxidil (Minoxidil) 5 mg PO BID [facility] Last Admin: 07/12/18 09:53 Dose: 5 mg Nicotine (Nicoderm Cq) 1 patch TD DAILY [facility] Last Admin: 07/12/18 09:54 Dose: 1 patch Ondansetron HCl (Zofran Inj) 4 mg IVP Q4H PRN PRN Reason: Nausea/Vomiting Last Admin: 07/10/18 10:52 Dose: 4 mg Pantoprazole Sodium (Protonix Ec Tab) 40 mg PO DAILY [facility] Last Admin: 07/12/18 09:53 Dose: 40 mg Rosuvastatin Calcium (Crestor) 10 mg PO HS [facility] Last Admin: 07/11/18 21:16 Dose: 10 mg Sevelamer Carbonate (Renvela) 800 mg PO TID [facility] Last Admin: 07/12/18 09:54 Dose: Not Given Sitagliptin Phosphate (Januvia) 25 mg PO DAILY [facility] Last Admin: 07/12/18 09:53 Dose: 25 mg Tramadol HCl (Ultram) 50 mg PO Q6H PRN PRN Reason: Pain, severe (8-10) Last Admin: 07/12/18 02:43 Dose: 50 mg Vitamin B Complex/Vit C/Folic Acid (Nephro-Tiffanie) 1 tab PO DAILY [facility] Last Admin: 07/12/18 09:53 Dose: 1 tab - Labs Labs: 07/12/18 08:42 07/12/18 08:42 PT 11.5 SECONDS (9.7-12.2) 07/07/18 13:25 INR 1.1 07/07/18 13:25 APTT 35 SECONDS (21-34) H 07/07/18 13:25
--- NOTE | 2018-07-12 12:53 | CP.PCM.PN ---
Subjective - Date & Time of Evaluation Date of Evaluation: 07/12/18 Time of Evaluation: 12:53 - Subjective Subjective: Nephrology Consultation Note: Assessment: Stable pulmonary nodules with lymphadenopathy ? malignancy fluid overload, hypoglycemia Diabetic chronic Kidney Disease (E11.22) Hypertensive Chronic Kidney Disease (I12.0) End stage renal disease (N18.6) dependence on hemodialysis (Z99.2) (TTS) via AVF Anemia (D64.9), Hyperphosphatemia (E83.39), Secondary Hyperparathyroidism (E21.1), HTN (I12.0) Plan: TTS HD f/u LN bx result Continue with Nephrovite 1 tab/day. PRBC as needed for anemia. Continue with phos binders home dose BP control with meds as ordered. Glycemic control, Dialysis consistent diet Further work up/management as per primary team S:no complaints feels ok Physical Examination: General Appearance: Comfortable, in no acute respiratory distress, co-operative . Vitals reviewed and noted as below Head; Atraumatic, normocephalic ENT: no ulcers no thrush. Tongue is midline. Oropharynx: no rash or ulcers. EYES: Pupils are equal, round and reactive to light accommodation. Eye muscles and extraocular movement intact. Sclera is anicteric. able to read from rt eye Neck; supple no lymphadenopathy, no thyromegaly or bruit Lungs: Normal respiratory rate/effort. Breath sounds bilateral reduced at bases Heart: Normal rate. s1s2 normal. No rub or gallop. Extremities: 2+ edema. No varicose veins. chronic LUE swelling, hx of stenosis above the access s/p angioplasty and stenting Neurological: Patient is alert, awake and oriented to person, place and time. No focal deficit. Strength bilateral appropriate and equal Skin: Warm and dry. Normal turgor. No rash. Palpitation: Normal elasticity for age Abdomen: Abdomen is soft. Bowel sounds +. There is no abdominal tenderness, no guarding/rigidity or organomegaly Psych: limited insight and normal affect/mood MSK: no joint tenderness or swelling. Digits and nails normal, no deformity : kidney or bladder not palpable Access: LUE AVF Labs/imaging reviewed. Past medical history, past surgical history, family history, social history, allergy reviewed and noted as below Family Hx: no hx of CKD. Non contributory Objective - Vital Signs/Intake and Output Vital Signs (last 24 hours): Temp Pulse Resp BP Pulse Ox 98.5 F 83 20 149/60 98 07/12/18 07:00 07/12/18 08:00 07/12/18 07:00 07/12/18 07:00 07/12/18 07:00 Intake and Output: 07/12/18 07/12/18 06:59 18:59 Intake Total 80 Balance 80 - Medications Medications: Current Medications Acetaminophen (Tylenol 325mg Tab) 650 mg PO Q6 PRN PRN Reason: pain or fever > 100.4 Last Admin: 07/12/18 05:27 Dose: 650 mg Celecoxib (Celebrex) 200 mg PO BID [facility] Last Admin: 07/12/18 09:53 Dose: 200 mg Guaifenesin (Robitussin) 100 mg PO Q4H PRN PRN Reason: Cough Last Admin: 07/11/18 19:04 Dose: 100 mg Heparin Sodium (Porcine) (Heparin) 5,000 units SC Q12 [facility] Last Admin: 07/12/18 09:53 Dose: 5,000 units Ceftriaxone Sodium (Rocephin Iv 1 Gm Duplex) 50 mls @ 100 mls/hr IVPB Q24H [facility]; Protocol Last Admin: 07/12/18 01:49 Dose: 100 mls/hr Azithromycin (Zithromax 500mg In Ns Addvantage) 500 mg in 250 mls @ 167 mls/hr IVPB Q24H [facility]; Protocol Last Admin: 07/12/18 09:56 Dose: 167 mls/hr Insulin Glargine (Lantus) 10 unit SC BID [facility] Last Admin: 07/12/18 09:53 Dose: 10 unit Insulin Human Regular (Novolin R) 0 unit SC ACHS [facility]; Protocol Last Admin: 07/12/18 12:19 Dose: 1 units Insulin Human Regular (Novolin R) 4 unit SC TIDCC [facility] Last Admin: 07/12/18 12:20 Dose: 4 unit Metoprolol Tartrate (Lopressor) 50 mg PO BID [facility] Last Admin: 07/12/18 09:53 Dose: 50 mg Minoxidil (Minoxidil) 5 mg PO BID [facility] Last Admin: 07/12/18 09:53 Dose: 5 mg Nicotine (Nicoderm Cq) 1 patch TD DAILY [facility] Last Admin: 07/12/18 09:54 Dose: 1 patch Ondansetron HCl (Zofran Inj) 4 mg IVP Q4H PRN PRN Reason: Nausea/Vomiting Last Admin: 07/10/18 10:52 Dose: 4 mg Pantoprazole Sodium (Protonix Ec Tab) 40 mg PO DAILY [facility] Last Admin: 07/12/18 09:53 Dose: 40 mg Rosuvastatin Calcium (Crestor) 10 mg PO HS [facility] Last Admin: 07/11/18 21:16 Dose: 10 mg Sevelamer Carbonate (Renvela) 800 mg PO TID [facility] Last Admin: 07/12/18 12:20 Dose: 800 mg Sitagliptin Phosphate (Januvia) 25 mg PO DAILY [facility] Last Admin: 07/12/18 09:53 Dose: 25 mg Tramadol HCl (Ultram) 50 mg PO Q6H PRN PRN Reason: Pain, severe (8-10) Last Admin: 07/12/18 02:43 Dose: 50 mg Vitamin B Complex/Vit C/Folic Acid (Nephro-Tiffanie) 1 tab PO DAILY [facility] Last Admin: 07/12/18 09:53 Dose: 1 tab - Labs Labs: 07/12/18 08:42 07/12/18 08:42 PT 11.5 SECONDS (9.7-12.2) 07/07/18 13:25 INR 1.1 07/07/18 13:25 APTT 35 SECONDS (21-34) H 07/07/18 13:25
[2018-07-12 16:46] LABS: ABG ALLEN TEST YES; ARTERIAL BLOOD GAS HCO3 28.8 mmol/L (21-28); ARTERIAL BLOOD GAS HEMOGLOBIN 10.6 g/dL (11.7-17.4); ARTERIAL BLOOD GAS O2 SAT 75.5 % (95-98); ARTERIAL BLOOD GAS PCO2 49 mm/Hg (35-45); ARTERIAL BLOOD GAS PH 7.41 (7.35-7.45); ARTERIAL BLOOD GAS PO2 38 mm/Hg (80-100); ARTERIAL BLOOD GAS TCO2 32.6 mmol/L (22-28)
[2018-07-12] MEDS: guaiFENesin 100 mg/5 ml Syrup UD PO PRN (18:01)
--- NOTE | 2018-07-12 22:53 | CP.PCM.PN ---
Subjective - Date & Time of Evaluation Date of Evaluation: 07/12/18 Time of Evaluation: 22:53 - Subjective Subjective: afebrile no complaints. s/p LN BX LEFT AXILLA MEDS UPDATED Objective - Vital Signs/Intake and Output Vital Signs (last 24 hours): Temp Pulse Resp BP Pulse Ox 98.7 F 76 20 157/57 H 96 07/12/18 16:00 07/12/18 16:00 07/12/18 16:00 07/12/18 16:00 07/12/18 16:00 - Medications Medications: Current Medications Acetaminophen (Tylenol 325mg Tab) 650 mg PO Q6 PRN PRN Reason: pain or fever > 100.4 Last Admin: 07/12/18 21:09 Dose: 650 mg Celecoxib (Celebrex) 200 mg PO BID [facility] Last Admin: 07/12/18 17:56 Dose: 200 mg Guaifenesin (Robitussin) 100 mg PO Q4H PRN PRN Reason: Cough Last Admin: 07/12/18 18:01 Dose: 100 mg Heparin Sodium (Porcine) (Heparin) 5,000 units SC Q12 [facility] Last Admin: 07/12/18 21:10 Dose: 5,000 units Ceftriaxone Sodium (Rocephin Iv 1 Gm Duplex) 50 mls @ 100 mls/hr IVPB Q24H [facility]; Protocol Last Admin: 07/12/18 01:49 Dose: 100 mls/hr Azithromycin (Zithromax 500mg In Ns Addvantage) 500 mg in 250 mls @ 167 mls/hr IVPB Q24H [facility]; Protocol Last Admin: 07/12/18 09:56 Dose: 167 mls/hr Insulin Glargine (Lantus) 10 unit SC BID [facility] Last Admin: 07/12/18 17:56 Dose: 10 unit Insulin Human Regular (Novolin R) 0 unit SC ACHS [facility]; Protocol Last Admin: 07/12/18 21:29 Dose: Not Given Insulin Human Regular (Novolin R) 4 unit SC TIDCC [facility] Last Admin: 07/12/18 17:56 Dose: 4 unit Metoprolol Tartrate (Lopressor) 50 mg PO BID [facility] Last Admin: 07/12/18 17:55 Dose: 50 mg Minoxidil (Minoxidil) 5 mg PO BID [facility] Last Admin: 07/12/18 17:55 Dose: 5 mg Nicotine (Nicoderm Cq) 1 patch TD DAILY [facility] Last Admin: 07/12/18 09:54 Dose: 1 patch Ondansetron HCl (Zofran Inj) 4 mg IVP Q4H PRN PRN Reason: Nausea/Vomiting Last Admin: 07/10/18 10:52 Dose: 4 mg Pantoprazole Sodium (Protonix Ec Tab) 40 mg PO DAILY [facility] Last Admin: 07/12/18 09:53 Dose: 40 mg Rosuvastatin Calcium (Crestor) 10 mg PO HS [facility] Last Admin: 07/12/18 21:09 Dose: 10 mg Sevelamer Carbonate (Renvela) 800 mg PO TID [facility] Last Admin: 07/12/18 17:56 Dose: 800 mg Sitagliptin Phosphate (Januvia) 25 mg PO DAILY [facility] Last Admin: 07/12/18 09:53 Dose: 25 mg Tramadol HCl (Ultram) 50 mg PO Q6H PRN PRN Reason: Pain, severe (8-10) Last Admin: 07/12/18 02:43 Dose: 50 mg Vitamin B Complex/Vit C/Folic Acid (Nephro-Tiffanie) 1 tab PO DAILY [facility] Last Admin: 07/12/18 09:53 Dose: 1 tab - Labs Labs: 07/12/18 08:42 07/12/18 08:42 PT 11.5 SECONDS (9.7-12.2) 07/07/18 13:25 INR 1.1 07/07/18 13:25 APTT 35 SECONDS (21-34) H 07/07/18 13:25 - Constitutional Appears: No Acute Distress - Head Exam Head Exam: NORMAL INSPECTION - Eye Exam Eye Exam: EOMI, PERRL - ENT Exam ENT Exam: Normal Oropharynx - Neck Exam Neck Exam: Lymphadenopathy, Normal Inspection - Respiratory Exam Respiratory Exam: Decreased Breath Sounds, Rhonchi (BASILAR RALES), NORMAL BREATHING PATTERN - Cardiovascular Exam Cardiovascular Exam: REGULAR RHYTHM, +S1, +S2 - GI/Abdominal Exam GI & Abdominal Exam: Soft, Normal Bowel Sounds. absent: Tenderness, Organomegaly - Extremities Exam Extremities Exam: Normal Capillary Refill. absent: Calf Tenderness, Pedal Edema - Neurological Exam Neurological Exam: Awake, CN II-XII Intact, Oriented x3, Reflexes Normal - Psychiatric Exam Psychiatric exam: Normal Mood - Skin Skin Exam: Normal Color, Warm Assessment and Plan - Assessment and Plan (Free Text) Plan: IMPRESSION; S/P LT. AXILLARY LN BX. PULMONARY NODULES WITH LYMPHADENOPATHY ? R/O MALIGNANCY LUNG VS METASTATIC DISEASE HYPOXEMIA R/O PNEUMONIA LLL -VE PE BY CT ANGIO. ESRD ON HD TTS. HYPOGLYCEMIA DIABETES MELLITUS. HYPERTENSION. PLAN; CONTINUE iv ROCEPHIN 1 G ONCE A DAY 07/08/17 ADD IV zITHROMAX 500 MG ONCE A DAY. 07/08/18. F/U BX LN -AXILLARY. HEMATOLOGY ONCOLOGY W/U IN PROGRESS.
[2018-07-13] MEDS: cefTRIAXone IV 1 gm in Dextros 50 ML IVPB SCH (01:30)
[2018-07-13] MEDS: guaiFENesin 100 mg/5 ml Syrup UD PO PRN ×3 (05:03→14:29)
[2018-07-13] MEDS: (Novolin R) Insulin Human Regular 100 units/ml vial SC SCH ×6 (08:20→17:01)
--- NOTE | 2018-07-13 09:15 | PN ---
DATE: 07/11/2018 SUBJECTIVE: The patient is a 57-year-old female. The patient was seen and examined at bedside on 07/11/2018. Looking comfortable. Cough is better. Shortness of breath is better. Continuing dialysis. No fevers. No chills. No hematuria. No hematochezia. No headache or dizziness. No chest pain or palpitations. PHYSICAL EXAMINATION: VITAL SIGNS: Reviewed by me. Temperature 99.6, pulse 91, respiratory rate 20, blood pressure 150/61, pulse oximetry 96%. HEENT: Head is normocephalic and atraumatic. Eyes, PERRLA. Extraocular muscles are intact. Conjunctivae clear. Nose patent. Mucous membranes are moist. NECK: Supple. No carotid bruits. No JVD or thyromegaly. CHEST: Bilaterally symmetrical. HEART: S1 and S2 positive. LUNGS: Clear to auscultation. ABDOMEN: Soft. Bowel sounds present. No organomegaly. EXTREMITIES: No edema. No cyanosis. NEUROLOGIC: The patient is awake and alert. Moving all four extremities. No focal deficits. MEDICATIONS: Celebrex, Robitussin, heparin, Rocephin, Zithromax, insulin, minoxidil, Nicoderm, Protonix, Crestor, Januvia, tramadol, B complex. LABORATORY DATA: White blood cell 6.2, hemoglobin 9.7, hematocrit 29.2 and platelets 168. Sodium 136, potassium 4.6, BUN 42, creatinine 8, and glucose 118. ASSESSMENT PLAN: a 57-year-old lady with anemia, hypochloremia, renal insufficiency on hemodialysis, hyperglycemia. The patient had insulin dependent diabetes mellitus, uncontrolled. So we called the endocrinology consultation with Dr. Sara Lang. She has had congestive heart failure, pneumonia on antibiotics. Continue with Lantus. Continue Novolin R low dose coverage three times a day and at bedtime. PLAN: Continue Novolin R low dose coverage t.i.d. and at bedtime, continue Novolin R 4 units t.i.d. with meals if it is more than 60%. Advised to stop smoking especially with diabetes mellitus, the patient understands that he will try. Congestive heart failure, stable. The patient has lung biopsy done. Results are pending. Plan was to discharge the patient after Dr. Dunn. Dr. Dunn's nurse practitioner wrote a prescription, but we did pulse oximetry without oxygen. It was in the 80s, then we called Dr. Delarosa for clearance. According to him the patient needs oxygenation at home. I hope social work will work on that. Otherwise repeat labs. July Dunne MD MTDD
[2018-07-13] MEDS: Pantoprazole 40 mg EC Tab PO SCH (09:26)
[2018-07-13] MEDS: Multivitamin Vitamin B Complex (Nephro-Vite) Tab PO SCH (09:26)
[2018-07-13] MEDS: (Lantus) Insulin Glargine, Recombinant SC SCH ×2 (09:27→17:37)
[2018-07-13] MEDS: Azithromycin 500mg/250ML NS 500 MG/250 ML BAG IVPB SCH (10:09)
--- NOTE | 2018-07-13 13:32 | CP.PCM.PN ---
Subjective - Date & Time of Evaluation Date of Evaluation: 07/13/18 Time of Evaluation: 13:32 - Subjective Subjective: Nephrology Consultation Note: Assessment: Stable pulmonary nodules with lymphadenopathy ? malignancy fluid overload, hypoglycemia Diabetic chronic Kidney Disease (E11.22) Hypertensive Chronic Kidney Disease (I12.0) End stage renal disease (N18.6) dependence on hemodialysis (Z99.2) (TTS) via AVF Anemia (D64.9), Hyperphosphatemia (E83.39), Secondary Hyperparathyroidism (E21.1), HTN (I12.0) Plan: Will plan for HD TTS as ordered.Continue with Nephrovite 1 tab/day. PRBC as needed for anemia. not On SARI with HD as last Hb 9.9 but with concerns of malignancy Continue with phos binders home dose BP control with meds as ordered. Glycemic control, Dialysis consistent diet Further work up/management as per primary team Dose meds/antibiotics (if needed) for ESRD status. Avoid fleets enema/magnesium based laxatives. diabetic education. pulmonary and heme/onc eval ongoing had IR guided LN biopsy Thanks for allowing me to participate in care of your patient. Will follow patient with you. Please call if any Qs. Dr Fernando Banda Office: [phone] Chief Complaint; low sugar HPI: Pt is a 57 y/o F with hx of ESRD on hemodialysis (TTS) via left AVF, last dialysis friday, chronic anemia, hyperphosphatemia, secondary hyperparathyroidism, Diabetes Mellitus, hypertension, diabetic retinopathy with vitreous hemorrhage and impaired left eye vision presented with complaints of low sugar. She was found to be hypoglycemic and hypoxic, required in-patient hospitalization. Denies chest pain, palpitation, improved shortness of breath, has leg swelling ROS: Constitutional Symptoms: Denies fever. No chills. No Recent Weight Changes Cardiovascular: No chest pain. There is no shortness of breath now. No palpitations. Pulmonary: No shortness of breath or cough. Gastrointestinal: denies abdominal pain No nausea. No vomiting. Denies change in bowel habits. Denies Bleeding has leg swelling. All other negative. Physical Examination: General Appearance: Comfortable, in no acute respiratory distress, co-operative . Vitals reviewed and noted as below Head; Atraumatic, normocephalic ENT: no ulcers no thrush. Tongue is midline. Oropharynx: no rash or ulcers. EYES: Pupils are equal, round and reactive to light accommodation. Eye muscles and extraocular movement intact. Sclera is anicteric. able to read from rt eye Neck; supple no lymphadenopathy, no thyromegaly or bruit Lungs: Normal respiratory rate/effort. Breath sounds bilateral b/l clear Heart: Normal rate. s1s2 normal. No rub or gallop. Extremities: trace edema. No varicose veins. chronic LUE swelling, hx of stenosis above the access s/p angioplasty and stenting Neurological: Patient is alert, awake and oriented to person, place and time. No focal deficit. Strength bilateral appropriate and equal Skin: Warm and dry. Normal turgor. No rash. Palpitation: Normal elasticity for age Abdomen: Abdomen is soft. Bowel sounds +. There is no abdominal tenderness, no guarding/rigidity or organomegaly Psych: limited insight and normal affect/mood MSK: no joint tenderness or swelling. Digits and nails normal, no deformity : kidney or bladder not palpable Access: LUE AVF Labs/imaging reviewed. Past medical history, past surgical history, family history, social history, allergy reviewed and noted as below Family Hx: no hx of CKD. Non contributory Objective - Vital Signs/Intake and Output Vital Signs (last 24 hours): Temp Pulse Resp BP Pulse Ox 98.8 F 78 20 180/76 H 98 07/13/18 07:00 07/13/18 11:59 07/13/18 07:00 07/13/18 07:00 07/13/18 07:00 - Medications Medications: Current Medications Acetaminophen (Tylenol 325mg Tab) 650 mg PO Q6 PRN PRN Reason: pain or fever > 100.4 Last Admin: 07/12/18 21:09 Dose: 650 mg Celecoxib (Celebrex) 200 mg PO BID [facility] Last Admin: 07/13/18 09:26 Dose: 200 mg Guaifenesin (Robitussin) 100 mg PO Q4H PRN PRN Reason: Cough Last Admin: 07/13/18 10:13 Dose: 100 mg Heparin Sodium (Porcine) (Heparin) 5,000 units SC Q12 [facility] Last Admin: 07/13/18 09:27 Dose: 5,000 units Ceftriaxone Sodium (Rocephin Iv 1 Gm Duplex) 50 mls @ 100 mls/hr IVPB Q24H [facility]; Protocol Last Admin: 07/13/18 01:30 Dose: 100 mls/hr Azithromycin (Zithromax 500mg In Ns Addvantage) 500 mg in 250 mls @ 167 mls/hr IVPB Q24H [facility]; Protocol Last Admin: 07/13/18 10:09 Dose: 167 mls/hr Insulin Glargine (Lantus) 10 unit SC BID [facility] Last Admin: 07/13/18 09:27 Dose: 10 unit Insulin Human Regular (Novolin R) 0 unit SC ACHS [facility]; Protocol Last Admin: 07/13/18 12:37 Dose: Not Given Insulin Human Regular (Novolin R) 4 unit SC TIDCC [facility] Last Admin: 07/13/18 12:45 Dose: 4 unit Losartan Potassium (Cozaar) 50 mg PO DAILY [facility] Last Admin: 07/13/18 11:44 Dose: 50 mg Metoprolol Tartrate (Lopressor) 50 mg PO BID [facility] Last Admin: 07/13/18 09:26 Dose: 50 mg Minoxidil (Minoxidil) 5 mg PO BID [facility] Last Admin: 07/13/18 09:26 Dose: 5 mg Nicotine (Nicoderm Cq) 1 patch TD DAILY [facility] Last Admin: 07/13/18 09:26 Dose: 1 patch Ondansetron HCl (Zofran Inj) 4 mg IVP Q4H PRN PRN Reason: Nausea/Vomiting Last Admin: 07/10/18 10:52 Dose: 4 mg Pantoprazole Sodium (Protonix Ec Tab) 40 mg PO DAILY [facility] Last Admin: 07/13/18 09:26 Dose: 40 mg Rosuvastatin Calcium (Crestor) 10 mg PO HS [facility] Last Admin: 07/12/18 21:09 Dose: 10 mg Sevelamer Carbonate (Renvela) 800 mg PO TID [facility] Last Admin: 07/13/18 09:26 Dose: 800 mg Sitagliptin Phosphate (Januvia) 25 mg PO DAILY [facility] Last Admin: 07/13/18 09:26 Dose: 25 mg Tramadol HCl (Ultram) 50 mg PO Q6H PRN PRN Reason: Pain, severe (8-10) Last Admin: 07/12/18 02:43 Dose: 50 mg Vitamin B Complex/Vit C/Folic Acid (Nephro-Tiffanie) 1 tab PO DAILY [facility] Last Admin: 07/13/18 09:26 Dose: 1 tab - Labs Labs: 07/12/18 08:42 07/12/18 08:42 PT 11.5 SECONDS (9.7-12.2) 07/07/18 13:25 INR 1.1 07/07/18 13:25 APTT 35 SECONDS (21-34) H 07/07/18 13:25
--- NOTE | 2018-07-13 15:01 | CP.PCM.PN ---
Subjective - Date & Time of Evaluation Date of Evaluation: 07/13/18 Time of Evaluation: 10:00 - Subjective Subjective: Subjective: Patient seen and examined at bedside. At this time feels well and has no complaints. Patient understands that PET scan needs to be performed as outpatient in order to further evaluate whether tumor. Denies any fevers, chills , fatigue, or trouble breathing. Patient scheduled for hemodialysis today. Objective: General: well appearing and in no acute distress Heart: RRR, S1, S2 Lungs: CTA b/l Abdomen: soft, nontender, nondistended A&P: 1. Pulmonary nodules: awaiting ABG room air to assess for home oxygen and will need outpatient PET scan Objective - Vital Signs/Intake and Output Vital Signs (last 24 hours): Temp Pulse Resp BP Pulse Ox 98.8 F 78 20 180/76 H 98 07/13/18 07:00 07/13/18 11:59 07/13/18 07:00 07/13/18 07:00 07/13/18 07:00 Intake and Output: 07/13/18 07/13/18 06:59 18:59 Intake Total 730 Balance 730 - Medications Medications: Current Medications Acetaminophen (Tylenol 325mg Tab) 650 mg PO Q6 PRN PRN Reason: pain or fever > 100.4 Last Admin: 07/12/18 21:09 Dose: 650 mg Celecoxib (Celebrex) 200 mg PO BID [facility] Last Admin: 07/13/18 09:26 Dose: 200 mg Guaifenesin (Robitussin) 100 mg PO Q4H PRN PRN Reason: Cough Last Admin: 07/13/18 14:29 Dose: 100 mg Heparin Sodium (Porcine) (Heparin) 5,000 units SC Q12 [facility] Last Admin: 07/13/18 09:27 Dose: 5,000 units Ceftriaxone Sodium (Rocephin Iv 1 Gm Duplex) 50 mls @ 100 mls/hr IVPB Q24H [facility]; Protocol Last Admin: 07/13/18 01:30 Dose: 100 mls/hr Azithromycin (Zithromax 500mg In Ns Addvantage) 500 mg in 250 mls @ 167 mls/hr IVPB Q24H [facility]; Protocol Last Admin: 07/13/18 10:09 Dose: 167 mls/hr Insulin Glargine (Lantus) 10 unit SC BID [facility] Last Admin: 07/13/18 09:27 Dose: 10 unit Insulin Human Regular (Novolin R) 0 unit SC ACHS [facility]; Protocol Last Admin: 07/13/18 12:37 Dose: Not Given Insulin Human Regular (Novolin R) 4 unit SC TIDCC [facility] Last Admin: 07/13/18 12:45 Dose: 4 unit Losartan Potassium (Cozaar) 50 mg PO DAILY [facility] Last Admin: 07/13/18 11:44 Dose: 50 mg Metoprolol Tartrate (Lopressor) 50 mg PO BID [facility] Last Admin: 07/13/18 09:26 Dose: 50 mg Minoxidil (Minoxidil) 5 mg PO BID [facility] Last Admin: 07/13/18 09:26 Dose: 5 mg Nicotine (Nicoderm Cq) 1 patch TD DAILY [facility] Last Admin: 07/13/18 09:26 Dose: 1 patch Ondansetron HCl (Zofran Inj) 4 mg IVP Q4H PRN PRN Reason: Nausea/Vomiting Last Admin: 07/10/18 10:52 Dose: 4 mg Pantoprazole Sodium (Protonix Ec Tab) 40 mg PO DAILY [facility] Last Admin: 07/13/18 09:26 Dose: 40 mg Rosuvastatin Calcium (Crestor) 10 mg PO HS [facility] Last Admin: 07/12/18 21:09 Dose: 10 mg Sevelamer Carbonate (Renvela) 800 mg PO TID [facility] Last Admin: 07/13/18 14:27 Dose: 800 mg Sitagliptin Phosphate (Januvia) 25 mg PO DAILY [facility] Last Admin: 07/13/18 09:26 Dose: 25 mg Tramadol HCl (Ultram) 50 mg PO Q6H PRN PRN Reason: Pain, severe (8-10) Last Admin: 07/12/18 02:43 Dose: 50 mg Vitamin B Complex/Vit C/Folic Acid (Nephro-Tiffanie) 1 tab PO DAILY [facility] Last Admin: 07/13/18 09:26 Dose: 1 tab - Labs Labs: 07/12/18 08:42 07/12/18 08:42 PT 11.5 SECONDS (9.7-12.2) 07/07/18 13:25 INR 1.1 07/07/18 13:25 APTT 35 SECONDS (21-34) H 07/07/18 13:25
[2018-07-13 16:13] VITALS: BP 166/63; TEMP 97.6; O2SAT 96
[2018-07-13 16:30] VITALS: PULSE 75
--- NOTE | 2018-07-18 17:52 | PN ---
DATE: 07/12/2018 SUBJECTIVE: The patient is a 57-year-old female. The patient was seen and examined at the bedside on 07/12/2018, looking comfortable. No fever, no chills, no hematuria, no hematochezia, no headache or dizziness, no chest pain or palpitation, and status post biopsy of the axillary lymph node, doing better. PHYSICAL EXAMINATION: VITAL SIGNS: Temperature 98.5, pulse 83, respiratory rate 20, blood pressure 140/50, and pulse oximetry 99%. HEAD: Normocephalic and atraumatic. EYES: PERRLA, extraocular muscles intact. Conjunctivae are clear. NOSE: Patent. Mucosal membranes are moist. NECK: Supple, no carotid bruits. No JVD or thyromegaly. CHEST: Bilaterally symmetrical. HEART: S1 and S2 positive. LUNGS: Clear to auscultation. ABDOMEN: Soft. Bowel sounds present. No organomegaly. EXTREMITIES: No edema. No cyanosis. NEUROLOGIC: The patient is awake and alert. Moving all four extremities. No focal deficits. MEDICATIONS: Tylenol, Celebrex, Robitussin, heparin, Rocephin, minoxidil, Nicoderm, and Zofran. LABORATORY DATA: White blood cells 3, hemoglobin 9.9, hematocrit 30.5, platelets 142, sodium 134, potassium 4, BUN 20, creatinine 7.4, glucose 236. ASSESSMENT AND PLAN: Ms. Shelley Gamez is a 57-year-old lady with leukopenia, anemia, hypochloremia, renal insufficiency, getting hemodialysis 3 times a week, diabetes mellitus, status post surgery for lymph node biopsy, pulmonary nodules with lymphadenopathy, rule out malignancy, fluid overload, hypoglycemia, hypertensive chronic kidney disease, hyperphosphatemia, secondary hyperparathyroidism. Pulmonary and Nephrology are on the case. Continue dialysis. Rule out malignancy with metastatic disease. Rocephin given. Zithromax added by the Infectious Disease. Hematology/Oncology is on the case also. Repeat labs. We will follow up. July Dunne MD [facility]
--- NOTE | 2018-07-18 20:35 | PN ---
DATE: 07/09/2018 SUBJECTIVE: The patient is a 57-year-old female. The patient was seen and examined at the bedside on 07/09/2018, looking comfortable. No fever, no chills, no hematuria, no hematochezia, no headache or dizziness, no chest pain or palpitation. PHYSICAL EXAMINATION: VITAL SIGNS: Temperature 97.8, pulse 78, respiratory rate 20, blood pressure 130/58, and pulse oximetry 100. HEENT: Head: Normocephalic and atraumatic. Eyes: PERRLA. Extraocular muscles are intact. Conjunctivae clear. Nose patent. Mucous membranes moist. NECK: Supple, no carotid bruits. No JVD or thyromegaly. CHEST: Bilaterally symmetrical. HEART: S1 and S2 positive. LUNGS: Clear to auscultation. ABDOMEN: Soft. Bowel sounds present. No organomegaly. EXTREMITIES: No edema. No cyanosis. NEUROLOGIC: The patient is awake and alert. Moving all four extremities. No focal deficits. MEDICATIONS: Heparin, ceftriaxone, azithromycin, insulin, minoxidil, Nicoderm, tramadol, Januvia. LABORATORY DATA: White blood cell 6.2, hemoglobin 9.7, hematocrit 29.8 and platelets 168. Sodium 136, potassium 4.6, BUN 42, creatinine 8, and glucose 181. ASSESSMENT AND PLAN: Ms. Shelley Gamez is a 57-year-old lady with anemia, hypochloremia, renal insufficiency, on hemodialysis, hyperglycemia, has multiple lung nodules. CAT scan shows left axillary lymphadenopathy, chronic obstructive pulmonary disease, pulmonary nodule with lymphadenopathy, rule out malignancy, fluid overload, hypoglycemia, diabetic, chronic kidney disease, hyperphosphatemia, secondary hyperparathyroidism, hypertension. Needs diabetic education. Pulmonary front end manager is on the case. Repeat labs. We will follow up. July Dunne MD
--- NOTE | 2018-07-19 23:13 | DS ---
The patient is a 57-year-old female. The patient was discharged on 07/13/2018. I am doing discharge summary for 07/13/2018. The patient was seen and examined at the bedside on 07/13/2018. CHIEF COMPLAINT: Hypoglycemia. HISTORY OF PRESENT ILLNESS: Ms. Shelley Gamez is a 57-year-old female with a past medical history of renal failure, hemodialysis three times a week, sent from dialysis center because of hypoglycemia. The patient is also complaining swelling and pain on the left side of her abdomen. The patient was evaluated in [facility] last week. She was told that she was hypoxic and need a home oxygen. The patient has no fever, no chills. No hematuria or hematochezia. We admitted that the patient did CAT scan of abdomen and pelvis and a CAT scan of the chest. Seen by Dr. Jaquez and Dr. Cm Alexander. Getting dialysis three times a week. Seen by Dr. Chuck Delarosa for biopsy of lymph node. Ultrasound-guided fine needle aspiration was done. Known diagnostic specimen predominantly blood with rare fragments of the adipose tissue as per pathology/cytology specimen. The patient's oxygen was approved. Sent home with home oxygen and medication prescriptions given. Follow up with her own primary care physician, lumber handler, oncologist and sandstone inspector repairer. PAST MEDICAL HISTORY: Anemia, anxiety, depression, diabetes mellitus, fracture of the left ankle and surgery, hypertension, hypercholesterolemia, pancreatitis, peripheral edema. FAMILY HISTORY: Father and mother are noncontributory. HABITS: Smoking, six sticks in two days. Alcohol, no. Substance abuse, no. REVIEW OF SYSTEMS: The patient was seen and examined at the bedside. Looking comfortable. No fever. No chills. No hematuria or hematochezia. No headache or dizziness. No chest pain. No palpitation. Shortness of breath is better, getting oxygen. The patient needs PET scan, but it can be performed as an outpatient for further evaluation of the tumor. Looks like in no acute distress. PHYSICAL EXAMINATION: VITAL SIGNS: Temperature 98.8, pulse 78, respiratory rate 20, blood pressure 118/76, pulse oximetry 98%. HEENT: Head: Normocephalic and atraumatic. Eyes: PERRLA. Extraocular muscles intact. Conjunctivae clear. Nose patent. Mucous membrane moist. NECK: Supple. No carotid bruit. No JVD or thyromegaly. CHEST: Bilaterally symmetrical. HEART: S1 and S2 positive. LUNGS: Clear to auscultation. ABDOMEN: Soft. Bowel sounds present. No organomegaly. EXTREMITIES: No edema. No cyanosis. NEUROLOGIC: The patient is awake, alert. Moving all four extremities. No focal deficits. MEDICATIONS: Tylenol, Celebrex, Robitussin, heparin, Rocephin, Zithromax, losartan, metoprolol, minoxidil. LABORATORY DATA: White blood cells 3, hemoglobin 9.9, hematocrit 30.5, platelets 142. Sodium 134, potassium 4, BUN 28, creatinine 7.4, glucose 236. ASSESSMENT AND PLAN: Mr. Shelley Gamez is a 57-year-old lady with leukopenia, anemia, hypochloremia, renal insufficiency, on hemodialysis three times a week, hyperglycemia. Has pulmonary nodules, lung densities. Oxygen was approved by the lumber handler. Need outpatient PET scan. Discussion done with the patient. History of hypertension. Gastrointestinal and deep venous thrombosis prophylaxis given. Seen by machine silver stripper, Dr. Sara Lang also. The patient has insulin-dependent diabetes mellitus, but sugar is uncontrolled, getting episodes of hypoglycemia and hyperglycemia. History of congestive heart failure and pneumonia, got antibiotics. Insulin coverage provided in the hospital. The patient got a prescription and home oxygen and discharged home. We will follow up her primary care physician and lumber handler. Education done. The patient is oriented x3. She understands and she knows she has to follow up with her own pcp , oncologist,and pul. July Dunne MD [email or web address]
== END 2018-07-13 20:09 | disposition home or self-care (01) | DRG 565 ==
LOC: C.ER 11:52 → C.9E 17:08 → C.6T 18:43
PROVIDERS: ADMIT Internal Medicine; ATTEND Internal Medicine
PROC: 5A1D70Z Performance of Urinary Filtration, Intermittent, Less than 6 Hours Per Day (ICD-10-PCS; 2018-07-07)
PROC: 5A09457 Assistance with Respiratory Ventilation, 24-96 Consecutive Hours, Continuous Positive Airway Pressure (ICD-10-PCS; 2018-07-07)
PROC: 07963ZX Drainage of Left Axillary Lymphatic, Percutaneous Approach, Diagnostic (ICD-10-PCS; principal; 2018-07-10)
PROC: 5A1D70Z Performance of Urinary Filtration, Intermittent, Less than 6 Hours Per Day (ICD-10-PCS; 2018-07-11)
DX: E11.649 Type 2 diabetes mellitus with hypoglycemia without coma (principal); J18.9 Pneumonia, unspecified organism; J96.91 Respiratory failure, unspecified with hypoxia; I13.2 Hypertensive heart and chronic kidney disease with heart failure and with stage 5 chronic kidney disease, or end stage renal disease; I50.9 Heart failure, unspecified; J98.11 Atelectasis; E87.1 Hypo-osmolality and hyponatremia; E87.8 Other disorders of electrolyte and fluid balance, not elsewhere classified; N18.6 End stage renal disease; R59.0 Localized enlarged lymph nodes; E11.22 Type 2 diabetes mellitus with diabetic chronic kidney disease; E11.319 Type 2 diabetes mellitus with unspecified diabetic retinopathy without macular edema; D64.9 Anemia, unspecified; E83.39 Other disorders of phosphorus metabolism; N25.81 Secondary hyperparathyroidism of renal origin; E78.5 Hyperlipidemia, unspecified; E78.00 Pure hypercholesterolemia, unspecified; H40.9 Unspecified glaucoma; F17.210 Nicotine dependence, cigarettes, uncomplicated; Z99.2 Dependence on renal dialysis; Z99.81 Dependence on supplemental oxygen; Z79.4 Long term (current) use of insulin; Z87.440 Personal history of urinary (tract) infections; Z83.3 Family history of diabetes mellitus

== ENCOUNTER 2018-10-15 11:56 | Emergency (ER) | payer MEDICAID ==
[2018-10-15 11:57] VITALS: BMI 41.8
[2018-10-15 12:31] LABS: BASO % 0.5 % (0.0-2.0); EOS % 0.2 % (0.0-4.0); HEMOGLOBIN 11.8 g/dL (11.0-16.0); LYMPH # 0.7 K/uL (1.0-4.3); LYMPH % 9.7 % (20.0-40.0); MEAN CELL VOLUME 90.3 fL (81.0-99.0); MEAN CORPUSCULAR HEMOGLOBIN 29.1 pg (27.0-31.0); MEAN CORPUSCULAR HGB CONC 32.2 g/dL (33.0-37.0); MEAN PLATELET VOLUME 9.2 fL (7.2-11.7); MONO # 0.4 K/uL (0.0-0.8); MONO % 4.8 % (0.0-10.0); NEUT # 6.5 K/uL (1.8-7.0); NEUT % 84.8 % (50.0-75.0); PLATELET COUNT 153 K/uL (130-400); RBC 4.05 Mil/uL (3.80-5.20); RED CELL DISTRIBUTION WIDTH 21.1 % (11.5-14.5)
[2018-10-15] MEDS ORDERED: (Novolin R) Insulin Human Regular 100 units/ml vial IVP STA ×2 (12:36→14:46)
[2018-10-15] MEDS ORDERED: (Novolin R) Insulin Human Regular 100 units/ml vial ONE ×2 (12:44→15:02)
[2018-10-15 12:48] LABS: VENOUS BLOOD GAS BASE EXCESS -4.3 mmol/L (0.0-2.0); VENOUS BLOOD GAS PCO2 42 mmHg (40-60); VENOUS BLOOD GAS PO2 38 mm/Hg (30-55); VENOUS BLOOD PH 7.32 (7.32-7.43)
[2018-10-15 12:52] LABS: WHITE BLOOD COUNT 7.6 K/uL (4.8-10.8)
--- NOTE | 2018-10-15 13:01 | RAD ---
HISTORY: Diabetic COMPARISON: Chest x-ray performed 07/07/18 TECHNIQUE: Chest, one view. FINDINGS: Examination limited by habitus. LUNGS: Moderate central vascular and pulmonary venous congestion. Please note that chest x-ray has limited sensitivity for the detection of pulmonary masses. PLEURA: No significant pleural effusion identified. No definite pneumothorax . CARDIOVASCULAR: Cardiomegaly. No significant atherosclerotic calcification present. OSSEOUS STRUCTURES: No acute osseous abnormality identified. VISUALIZED UPPER ABDOMEN: Unremarkable. OTHER FINDINGS: Evidence of left subclavian and axillary vascular stents. IMPRESSION: Cardiomegaly. Moderate central vascular and pulmonary venous congestion.
[2018-10-15 13:26] LABS: ANISOCYTOSIS SLIGHT; BANDS 2 % (0-2); BASOPHIL 1 % (0-2); BURR CELLS SLIGHT; EOSINOPHIL 2 % (0-4); HYPOCHROMIC SLIGHT; LYMPHOCYTE 7 % (20-40); MONOCYTE 4 % (0-10); NEUTROPHIL 84 % (50-75); PLATELET ESTIMATE NORMAL (NORMAL); POIKILOCYTOSIS SLIGHT; TOTAL CELLS COUNTED 100
[2018-10-15 14:07] LABS: ALB/GLOB RATIO 1.5 (1.0-2.1); ALBUMIN 4.4 g/dL (3.5-5.0); ALT/SGPT 7 U/L (9-52); AST/SGOT 20 U/L (14-36); BLOOD UREA NITROGEN 13 mg/dL (7-17); CALCIUM 8.7 mg/dl (8.6-10.4); GFR NON-AFRICAN AMERICAN 12; LIPASE < 10 U/L (23-300)
--- NOTE | 2018-10-15 17:19 | C.PDOC ---
History Of Present Illness Patient is a 58 year old female who presents to the ED after hemodialysis with acute changing mental status and a high blood sugar. Upon arrival to the ED, patient was aox3. Patient reports being mildly weak, which is typical when her sugar gets high. She states that she did not take her insulin today and that she did eat a little bit this morning. Patient reports that she had a full course of hemodialysis without complications. She denies any CP, fever, or cough. Time Seen by Provider: 10/15/18 12:12 Chief Complaint (Nursing): Weakness/Neurological Deficit History Per: Patient History/Exam Limitations: no limitations Onset/Duration Of Symptoms: Hrs Additional History Per: Patient Past Medical History Reviewed: Historical Data, Nursing Documentation, Vital Signs Vital Signs: Last Vital Signs Temp 100.0 F H 10/15/18 15:30 Pulse 86 10/15/18 15:30 Resp 18 10/15/18 15:30 BP 126/39 L 10/15/18 15:30 Pulse Ox 95 10/15/18 15:30 - Medical History PMH: Anemia (blood transfusion), Anxiety, Depression, Diabetes, Fractures (left ankle fx and surgery), HTN, Hypercholesterolemia, Hyperlipidemia, Pancreatitis, Peripheral Edema, End Stage Renal Disease, Chronic Kidney Disease Denies: HIV, Migraine, Seizures Surgical History: No Surg Hx Denies: Appendectomy (Denies.), Pacemaker - [facility] Procedures (07/24/18) APPLICATION OF SPLINT (07/26/13) ASSISTANCE WITH RESPIRATORY VENTILATION, 24-96 HRS, CPAP (07/07/18) CL FX REDUC-TIBIA/FIBULA (11/16/14) DRAINAGE OF LEFT AXILLARY LYMPHATIC, PERC APPROACH, DIAGN (07/07/18) FLUOROSCOPY OF RIGHT JUGULAR VEINS, GUIDANCE (05/03/15) INJECT/INFUSE NEC (03/21/15) INSERT INFUSION DEV IN R INT JUGULAR VEIN, PERC (05/03/15) OP RED-INT FIX TIB/FIBUL (11/16/14) PACKED CELL TRANSFUSION (11/16/14) PERFORMANCE OF URINARY FILTRATION, MULTIPLE (10/04/16) PERFORMANCE OF URINARY FILTRATION, SINGLE (10/26/16) REMOVAL OF INFUSION DEVICE FROM UPPER VEIN, PERC APPROACH (05/03/15) REPAIR ABDOMINAL WALL, OPEN APPROACH (04/16/16) TRANSFUSE NONAUT RED BLOOD CELLS IN PERIPH VEIN, PERC (07/24/18) ULTRASONOGRAPHY OF RIGHT JUGULAR VEINS, GUIDANCE (05/03/15) Family History: States: No Known Family Hx - Social History Hx Tobacco Use: Yes (6 sticks today) Hx Alcohol Use: No Hx Substance Use: No - Immunization History Hx Tetanus Toxoid Vaccination: No Hx Influenza Vaccination: Yes Hx Pneumococcal Vaccination: No Review Of Systems Except As Marked, All Systems Reviewed And Found Negative. Constitutional: Positive for: Weakness. Negative for: Fever, Chills Cardiovascular: Negative for: Chest Pain Respiratory: Negative for: Cough, Shortness of Breath Gastrointestinal: Negative for: Nausea, Vomiting Neurological: Positive for: Altered Mental Status (acute changing mental status ) Physical Exam - Physical Exam Appears: Non-toxic, No Acute Distress Skin: Warm, Dry Head: Atraumatic, Normacephalic Oral Mucosa: Moist Chest: Symmetrical, No Deformity Cardiovascular: Murmur (systolic murmur ) Respiratory: Normal Breath Sounds Gastrointestinal/Abdominal: Normal Exam, Soft, No Tenderness Extremity: Normal ROM, Other (left upper arm av shot ) Neurological/Psych: Oriented x3 ED Course And Treatment - Laboratory Results Result Diagrams: 10/15/18 12:23 10/15/18 13:41 Lab Results: pO2 38 mm/Hg (30-55) 10/15/18 12:25 VBG pH 7.32 (7.32-7.43) 10/15/18 12:25 VBG pCO2 42 mmHg (40-60) 10/15/18 12:25 VBG HCO3 20.7 mmol/L 10/15/18 12:25 VBG Total CO2 22.9 mmol/L (22-28) 10/15/18 12:25 VBG O2 Sat (Calc) 74.6 % (40-65) H 10/15/18 12:25 VBG Base Excess -4.3 mmol/L (0.0-2.0) L 10/15/18 12:25 VBG Potassium 5.3 mmol/L (3.6-5.2) H 10/15/18 12:25 Sodium 137.0 mmol/l (132-148) 10/15/18 12:25 Chloride 100.0 mmol/L (98-107) 10/15/18 12:25 Glucose 407 mg/dl (65-105) H* D 10/15/18 12:25 Lactate 1.9 mmol/L (0.7-2.1) 10/15/18 12:25 FiO2 21.0 % 10/15/18 12:25 Crit Value Called To Dr fleming 10/15/18 12:25 Crit Value Called By Italo garcia 10/15/18 12:25 Crit Value Read Back Y 10/15/18 12:25 Blood Gas Notified Time 1248 10/15/18 12:25 Troponin I < 0.0120 ng/mL (0.00-0.120) 10/15/18 13:41 Total Bilirubin 0.6 mg/dL (0.2-1.3) 10/15/18 13:41 AST 20 U/L (14-36) 10/15/18 13:41 ALT 7 U/L (9-52) L D 10/15/18 13:41 Alkaline Phosphatase 167 U/L (38-126) H D 10/15/18 13:41 Total Protein 7.3 g/dL (6.3-8.3) 10/15/18 13:41 Albumin 4.4 g/dL (3.5-5.0) 10/15/18 13:41 Globulin 3.0 gm/dL (2.2-3.9) 10/15/18 13:41 Albumin/Globulin Ratio 1.5 (1.0-2.1) 10/15/18 13:41 Lipase < 10 U/L (23-300) L 10/15/18 13:41 O2 Sat by Pulse Oximetry: 95 (on RA) Pulse Ox Interpretation: Normal - Other Rad CXR X-Ray: Viewed By Me, Read By Radiologist Interpretation: IMPRESSION: Cardiomegaly. Moderate central vascular and pulmonary venous congestion. Medical Decision Making Medical Decision Making: Plan: EKG VBG Labs CXR Blood Culture Insulin IVP Reevaluation: Patient states that she belt better and requested to be discharged home. Disposition - Disposition Referrals: Agustin Rodas, [Non-Staff] - Disposition: HOME/ ROUTINE Disposition Time: 14:30 Condition: IMPROVED Additional Instructions: ALAN LUNA, thank you for letting us take care of you today. The emergency medical care you received today was directed at your acute symptoms. If you were prescribed any medication, please fill it and take as directed. It may take several days for your symptoms to resolve. Return to the Emergency Department if your symptoms worsen, do not improve, or if you have any other problems. Please contact your doctor or call one of the physicians/clinics you have been referred to that are listed on the Patient Visit Information form that is included in your discharge packet. Bring any paperwork you were given at discharge with you along with any medications you are taking to your follow up visit. Our treatment cannot replace ongoing medical care by a primary care provider outside of the emergency department. Thank you for allowing the [facility] team to be part of your care today. Follow up with your primary care doctor in 2-3 days for a blood sugar check and re-evaluation. Instructions: Hyperglycemia, Adult (DC), Weakness (ED) Forms: [id number] (Polish) - Clinical Impression Clinical Impression: Hyperglycemia, Weakness - Scribe Statement The provider has reviewed the documentation as recorded by the Scribbere Julian All medical record entries made by the Scribe were at my direction and personally dictated by me. I have reviewed the chart and agree that the record accurately reflects my personal performance of the history, physical exam, medical decision making, and the department course for this patient. I have also personally directed, reviewed, and agree with the discharge instructions and disposition.
[2018-10-15 18:03] VITALS: BP 118/44; PULSE 80; RESP 12; TEMP 97.9
[2018-10-15 18:26] VITALS: O2SAT 95
--- NOTE | 2018-10-17 10:27 | CARD ---
APPROVED REPORT Date of service: 10/15/2018 EKG Measurement Heart [id number] <Conclusion> Normal sinus rhythm Left atrial enlargement Nonspecific ST abnormality Baseline artifact Abnormal ECG
== END 2018-10-15 19:00 | disposition home or self-care (01) ==
LOC: C.ER 11:56
DX: E11.65 Type 2 diabetes mellitus with hyperglycemia (principal); E78.00 Pure hypercholesterolemia, unspecified; E78.5 Hyperlipidemia, unspecified; I12.0 Hypertensive chronic kidney disease with stage 5 chronic kidney disease or end stage renal disease; N18.6 End stage renal disease; Z99.2 Dependence on renal dialysis; F17.210 Nicotine dependence, cigarettes, uncomplicated